=== PATIENT | male | born 1950 | race Caucasian/White ===

== ENCOUNTER 2022-11-20 10:46 | Outpatient (OUT) | payer SELFPAY | END 2022-11-20 10:47 | disposition home or self-care (01) | LOC: PST 10:46 | PROVIDERS: Visit Provider Urology | DX: Z01.818 Encounter for other preprocedural examination (principal); R97.20 Elevated prostate specific antigen [PSA] ==

== ENCOUNTER 2022-11-21 13:16 | Day surgery (SDC) | payer MEDICARE, OTHER, SELFPAY ==
--- NOTE | 2022-11-21 14:26 | PC.NURSE ---
Administered Fleets enema per direction of Dr. Lopse at this time.
[2022-11-21] MEDS: LIDOCAINE 2% JELLY 10 ML UR (14:59)
[2022-11-21] MEDS: BACITRACIN OINTMENT 28.4 GM TUBE 1 APPLIC TOPICAL (15:15)
--- NOTE | 2022-11-21 15:22 | PM.URSON ---
Urology Surgery Operative Note Operative Note Procedure Date: 11/21/22 Time Out Performed: yes Pre-op Diagnosis: 1. Elevated PSA Post-op Diagnosis: same as pre-op Procedures performed: 1. Ultrasound for needle prostate biopsy, transperineal approach 2. Transrectal ultrasound of prostate and seminal vesicles 3. Nerve block of prostate Anesthesia: local Primary Surgeon: Melanie Lopes Complications: none Estimated blood loss (mL): 1 Findings: Scattered tiny cysts and calcifications within transition zone. No discrete hyper/hypoechoic lesions. Prostate volume on TRUS 71.8 cm^3 (5.8 x 4.1 x 5.7 cm). SV unremarkable. Specimens: 1. Right posterior medial (2 cores) 2. Right posterior lateral (2 cores) 3. Right base (2 cores) 4. Right anterior lateral (2 cores) 5. Right anterior medial (2 cores) 6. Left anterior medial (2 cores) 7. Left anterior lateral (2 cores) 8. Left base (2 cores) 9. Left posterior lateral (2 cores) 10. Left posterior medial (2 cores) Drains: none Indications for Procedures: 72 year old male with history of elevated PSA 7.5, 10% free on 09/11/22, PSA density 0.09. MP-MRI prostate 11/05/22 negative. Prostate volume 79 ml. PACO benign. After discussion of risks/benefits of management options and biopsy approaches, he elected to proceed with transperineal prostate biopsy. Risks were discussed to include but not limited to bleeding, pain, infection, damage to surrounding structures, hematuria, difficulty urinating, ecchymosis, swelling, injury from positioning, and need for additional procedures. Detailed description of Procedure: After informed consent was obtained, the patient was brought to the operating suite and transferred onto the operating table in supine position. Sequential compression devices were placed on bilateral lower extremities. He received the appropriate dose of preoperative PO antibiotics. He was positioned in the dorsal lithotomy position with scrotum secured out of the perineum with tape, and the appropriate pressure points padded, prepped and draped in the usual fashion for this procedure. An operative timeout was performed confirming the patient's identity, procedure and safety checks. Lidocaine gel was inserted per rectum. A well lubricated biplane transrectal ultrasound probe was inserted into the rectum and the prostate was aligned. The gland was visualized fully in axial and sagittal views to allow for identification of anatomy, volume and location of the urethra as noted in findings. The Precision Point device was placed on the ultrasound probe for transperineal approach. The skin followed by periprostatic local anesthetic was delivered. Two biopsies were obtained in a systematic fashion from 10 regions of the prostate including the medial and lateral aspects of the anterior and posterior prostate, as well as base of the right and left lobes. The ultrasound probe was removed and the perineum was cleaned, pressure applied and dressed with antibiotic ointment, fluffs and scrotal support. Adequate hemostasis at the end of the case. The patient tolerated the procedure well and was sent to PACU in stable condition. Plan: Void prior to discharge home. Follow up in 1-2 weeks for pathology review. Other Provider present: No Post Operative care instructions: see discharge instructions Attending Doc Confirm Attending Attestation: Yes
--- NOTE | 2022-11-21 15:40 | PC.NURSE ---
To ambulatory; awake and alert; given fluids and snack; denies urge to void at this time and Dr. Lopes wants her local prostate biopsy procedures to void before discharge
--- NOTE | 2022-11-21 15:51 | PC.NURSE ---
Denies urge to void; drinking fluids without difficulty; on 4th large cup of fluid
--- NOTE | 2022-11-21 16:22 | PC.NURSE ---
Up to bathroom and vois clear yellow without difficulty
== END 2022-11-21 16:25 | disposition home or self-care (01) ==
PROVIDERS: Visit Provider Urology
PROC: (CPT 55700; principal; 2022-11-21 14:00)
DX: C61 Malignant neoplasm of prostate (principal); R97.20 Elevated prostate specific antigen [PSA]; N40.0 Benign prostatic hyperplasia without lower urinary tract symptoms; N52.9 Male erectile dysfunction, unspecified; R35.1 Nocturia; Z87.442 Personal history of urinary calculi; N41.9 Inflammatory disease of prostate, unspecified; Z79.82 Long term (current) use of aspirin; Z96.659 Presence of unspecified artificial knee joint; E29.1 Testicular hypofunction
CPT/HCPCS: 55700; 88305; 88344

== ENCOUNTER 2023-11-27 08:30 | Outpatient (OUT) | payer MEDICARE, OTHER, SELFPAY ==
--- NOTE | 2023-11-27 08:52 | XR_ITS ---
The [address] [address] Patient Name: JAMILA GRAHAM MRN: [id number] date: 1950 Sex: M Assigned Patient Location: LAB Current Patient Location: LAB Accession/Order Number: [id number] Exam Date: 11/27/2023 08:48 Report Date: 11/27/2023 10:32 At the request of: LILIYA LOPEZ Procedure: XR abdomen 1V EXAMINATION: XR abdomen 1V HISTORY: Kidney Stone N20.0 COMPARISON: XR KUB 10/25/2021 FINDINGS: KIDNEY/URETER - RIGHT: No visible renal or ureteral calcifications. KIDNEY/URETER - LEFT: Several stones projecting over left kidney, largest is 9 mm. PELVIS: No visible ureteral stones. BOWEL: No abnormal dilation or deviation. BONES: No acute abnormality. OTHER: Negative. No abnormal gaseous collections. XR/XR abdomen 1V IMPRESSION: 1. Left nephrolithiasis; increased size and number of stones compared to prior study. Electronically authenticated by: SOWMYA FLORES Date: 11/27/2023 10:32
[2023-11-28 14:10] LABS: PSA, Free 0.34 ng/mL; Prostate Specific Ag 4.1 ng/mL (0.0-4.0)
== END 2023-11-27 08:31 | disposition home or self-care (01) ==
LOC: LAB 08:33
PROVIDERS: PCP Family Medicine; Visit Provider Urology
DX: N20.0 Calculus of kidney (principal); C61 Malignant neoplasm of prostate
CPT/HCPCS: 36415; 74018; 84153; 84154

== ENCOUNTER 2024-01-27 09:24 | Outpatient (OUT) | payer MEDICARE, OTHER, SELFPAY ==
--- OUTSIDE RECORDS SUMMARY | 2024-01-27 09:46 | XMS_ITS | CCD ---
Author Organization [facility] Care Team Providers Care Guest Service Aide Name Role Phone MARIO HYMAN Primary Care Physician Mario Hyman Unavailable Luis M Gramajo Unavailable DO Mario Hyman Primary Care Provider DO Luis M Gramajo Attending Provider MD Melanie Lopes Attending Provider DO Mario Hyman Attending Provider [phone] DO Mario Hyman Primary Care Provider DO Mario Hyman Primary Care Provider MD Melanie Lopes Attending Provider DO Shantelle Lamas Attending Provider DO Mario Hyman Primary Care Provider [phone] MD Melanie Lopes Attending Provider DO Mario Hyman Attending Provider DO Maury Wilder Referring Provider DO Mario Hyman Primary Care Provider [phone] MD Melanie Lopes Attending Provider DO Mario Hyman Attending Provider [phone] DO Maury Wilder Referring Provider [phone] Yenni, Dr. Mario Mckinley Primary Care UnavailElmo Pedraza Attending Unavailable Yenni, Dr. Mario Mckinley Primary Care Shauna Hyman, Dr. Mario Mckinley Primary Care Unavailadryan Hyman, Dr. Mario Mckinley Primary Care Unavaila ble LUE ., MELANIE M Admitting Unavailable LUE ., MELANIE M Attending Unavailable KUNS, DR MARTIN Primary Care Unavailable LUE ., MELANIE M Consulting Unavailable LUIZA II, ALBARO Consulting Unavailable CECILIO MONTEIRO Consulting Unavailable LUE ., MELANIE M Admitting Unavailable LUE ., MELANIE M Attending Unavailable KUNS, DR MARTIN Primary Care Unavailable LUE ., MELANIE M Admitting Unavailable LUE ., MELANIE M Attending Unavailable KUNS, DR MARTIN Primary Care Unavailable ZIEBER, DR SOWMYA Carver Consulting Unavailable LUE ., MELANIE M Consulting Unavailable KUNS, DR MARTIN Primary Care Unavailable HAY ., DR AMAYA Admitting Unavailable HAY ., DR AMAYA Attending Unavailable HAY ., DR AMAYA Consulting Unavailable LUE ., MELANIE M Admitting Unavailable LUE ., MELANIE M Attending Unavailable KUNS, DR MARTIN Primary Care Unavailable SHAGUFTA NASH Consulting Unavailable LUE ., MELANIE M Consulting Unavailable JESUS WOODARD Consulting Unavailable KUNS, DR MARTIN Primary Care Unavailable HOY ., DR MARINO Admitting Unavailable HOY ., DR MARINO Attending Unavailable HOY ., DR MARINO Consulting Unavailable MISC, DR FOSTER Consulting Unavailable GRECHNY ., MIRIAM THOMAS Consulting Unavailabl e LUE ., MELANIE M Consulting Unavailable SISTER, MERY Consulting Unavailable LUIZA II, ALBARO Consulting Unavailable Jackys, DO Martin Primary Care Provider Yenni, DO Martin Attending Provider [phone] Jackys, DO Martin Primary Care Provider MD Melanie Lopes Attending Provider [phone] Kuns, DO Martin Attending Provider Kuns, DO Mario Primary Care Provider Kuns, DO Martin Attending Provider Jackys, Mario Admitting Unavailable Kuns, Mario Attending Unavailable Kuns, Mario Primary Care Unavailable Lue, Melanie M Attending Unavailable Lue, Melanie M Admitting Unavailable Kuns, Mario Primary Care Unavailable Kuns, Mario Admitting Unavailable Kuns, Mario Attending Unavailable Kuns, Mario Primary Care Unavailable Kuns, Mario Admitting Unavailable Kuns, Mario Attending Unavailable Kuns, Mario Primary Care Unavailable Mario Hyman Attending Unavailable Mario Hyman Admitting Unavailable Mario Hyman Primary Care Unavailable Melanie Lopes Referring Unavailable Ashley Hernandez Attending Unavailable Ashley Hernandez Admitting Unavailable Melanie Lopes Attending Unavailable Melanie Lopes Attending Unavailable Melanie Lopes Attending Unavailable Unavailable Primary Care Provider Unavailabl e Allergies Allergy Classification Reported Allergen(s) Allergy Type Date of Onset Reaction(s) Facility (1 source) No Known Medication Allergies; Translations: [No Known Medication Allergies] Propensity to adverse reactions (disorder) [facility] Medications Current Medications Medication Drug Class(es) Dates Sig (Normalized) Sig (Original) [id number] 200 actuat albuterol 0.09 mg/actuat metered dose inhaler (14 sources) beta2-Adrenergic Agonist Start: 07-10-2023 take 1 puff(s) by inhalation every four hours Albuterol Sulfate (Ventolin Hfa) 90 mcg/actuation HFA aerosol inhaler Active 2 PUFF INHALATION Every 4 hours July 10, 2023 12:00am take 2 puff(s) by in halation every four hours as needed Ventolin HFA 108 (90 Base) MCG/ACT 2 puffs as needed Inhalation every 4 hrs Active aspirin 81 mg oral capsule (20 sources) Platelet Aggregation Inhibitor, Nonsteroidal Anti-inflammatory Drug Start: 09-20-2021 take 1 mg by mouth every four hours aspirin 81 mg oral capsule mg cap(s), Oral, q4hr, Refills(s) 0 Start Date: 09/20/21 Status: Ordered Start: 09-01-2021 take 81 mg by mouth once daily Aspirin Active 81 MG PO Daily September 01, 2021 12:00am take 1 tablet by mouth once narinder y Aspirin 81 MG 1 tablet Orally Once a day Active ciprofloxacin 500 mg oral tablet (1 source) Quinolone Antimicrobial Start: 07-12-2022 ciprofloxacin 500 mg Tab Refills(s) 0 Start Date: 07/12/22 Status: Ordered meloxicam 7.5 mg oral tablet (1 source) Nonsteroidal Anti-inflammatory Drug Start: 05-09-2022 End: 05-23-2022 take 1 tablet by mouth once daily meloxicam 7.5 mg Tab 7.5 mg = 1 tab(s), Oral, Daily, X 14 day(s), # 14 tab(s), Refills(s) 0 Start Date: 05/09/22 Stop Date: 05/23/22 Status: Ordered sulfamethoxazole 800 mg / trimethoprim 160 mg oral tablet (1 source) Dihydrofolate Reductase Inhibitor Antibacterial, Sulfonamide Antimicrobial Start: 05-09-2022 End: 06-06-2022 Bactrim D.S. 800 mg-160 mg Tab 160 mg, Oral, BID for 28 day(s), 56 tab(s), Refill(s) 0 Start Date: 05/09/22 Stop Date: 06/06/22 Status: Ordered tadalafil 5 mg oral tablet (16 sources) Phosphodiesterase 5 Inhibitor Start: 12-13-2021 take 5 mg by mouth once daily as needed Tadalafil Active 5 MG PO Daily January 14, 2023 12:00am once a day, as needed prior to sexual intercourse. tamsulosin hydrochloride 0.4 mg oral capsule (19 sources) alpha-Adrenergic Alanna Start: 11-01-2021 take 0.4 mg by mouth at bedtime Tamsulosin Active 0.4 MG PO Bedtime January 14, 2023 12:00am Completed/Discontinued Medications Medication Drug Class(es) Dates Sig (Normalized) Sig (Original) glimepiride 1 mg oral tablet (13 sources) Sulfonylurea Start: 07-10-2023 End: 01-21-2024 Glimepiride Discontinued 1 MG PO Daily July 10, 2023 12:00am January 21, 2024 2:28pm 1 tablet with breakfast or the first main meal of the day Orally Once a day Start: 06-25-2022 glimepiride 2 mg Tab 2 mg = 1 tab(s) Start Date: 06/25/22 Status: Ordered Start: 06-18-2022 take 1 tablet by giovani th every twenty-four hours Glimepiride 1 MG 1 tablet with breakfast or the first main meal of the day Orally Once a day May, Active Start: 06-18-2022 take 1 tablet by giovani th every twenty-four hours Glimepiride 2 MG 1 tablet with breakfast or the first main meal of the day Orally Once a day for 90 days May, Active lisinopril 10 mg oral tablet (20 sources) Angiotensin Converting Enzyme Inhibitor Start: 09-01-2021 End: 07-10-2023 take 10 mg by mouth once daily Lisinopril Discontinued 10 MG PO Daily September 01, 2021 12:00am July 10, 2023 10:22am Start: 10-20-2014 take 20 mg by mouth once daily Lisinopril Active 20 MG PO Daily July 10, 2023 12:00am Problems Active Problems Problem Classification Problem Date Documented Da te Episodic/Chronic Allergic reactions (14 sources) Eczema; Translations: [Dermatitis, unspecified] 07-10-2023 Episodic Anxiety disorders (1 source) Anxiety disorder, unspecified; Translations: [ANXIETY DISORDER UNSPECIFIED] Onset: 07-10-2022 Chronic Asthma (14 sources) Asthma; Translations: [Unspecified asthma, uncomplicated] 07-10-2023 Chronic Calculus of urinary tract (20 sources) History of calculus of kidney; Translations: [Personal history of urinary calculi] Onset: 09-20-2021 Episodic Cancer of prostate (15 sources) Malignant neoplasm of prostate; Translations: [Malignant tumor of prostate] Onset: 11-28-2022 Chronic Cardiac dysrhythmias (5 sources) Palpitations; Translations: [Palpitations] Episodic Diabetes mellitus with complications (13 sources) Type 2 diabetes mellitus; Translations: [Type 2 diabetes mellitus with hyperglycemia] Onset: 09-18-2022 Chronic Diabetes mellitus without complication (1 source) Type 2 diabetes mellitus without complications; Translations: [Diabetes mellitus without mention of complication, type II or unspecified type, not stated as uncontrolled] 01-21-2024 Chronic Diabetes mellitus without complication (16 sources) Hyperglycemia; Translations: [Hyperglycemia, unspecified] Onset: 11-03-2021 Resolved: 11-03-2021 Episodic Disorders of lipid metabolism (17 sources) Hyperlipidemia; Translations: [Hyperlipidemia, unspecified] Onset: 11-03-2021 Resolved: 11-03-2021 Chronic Diverticulosis and diverticulitis (10 sources) Diverticular disease; Translations: [Diverticulosis of intestine, part unspecified, without perforation or abscess without bleeding] Chronic Essential hypertension (16 sources) Hypertensive disorder; Translations: [Essential (primary) hypertension] Onset: 07-10-2023 Chronic Genitourinary symptoms and ill-defined conditions (17 sources) Nocturia; Translations: [Nocturia] Onset: 11-01-2021 Episodic Hemorrhoids (10 sources) Internal hemorrhoids; Translations: [Other hemorrhoids] Episodic Hyperplasia of prostate (20 sources) Benign prostatic hypertrophy without outflow obstruction; Translations: [Benign prostatic hyperplasia without lower urinary tract symptoms] Onset: 11-01-2021 Chronic Inflammatory conditions of male genital organs (9 sources) Prostatitis; Translations: [Inflammatory disease of prostate, unspecified] Onset: 05-09-2022 Episodic Lung disease due to external agents (12 sources) Asbestosis; 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] Onset: 11-03-2021 Resolved: 11-03-2021 Chronic Malaise and fatigue (8 sources) Fatigue; Translations: [Other fatigue] Onset: 11-03-2021 Resolved: 11-03-2021 Episodic Nonspecific chest pain (8 sources) Chest pain; Translations: [Chest pain, unspecified] Onset: 07-10-2022 Episodic Nutritional deficiencies (10 sources) Vitamin D deficiency; Translations: [Vitamin D deficiency, unspecified] Chronic Osteoarthritis (5 sources) Bilateral osteoarthritis of knees; Translations: [Bilateral primary osteoarthritis of knee] 07-10-2023 Chronic Other aftercare (1 source) Other [place] [facility] (current) drug therapy; Translations: [OTH PRISON CURRENT DRUG THERAPY] Onset: 07-11-2022 Episodic Other aftercare (1 source) 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; Translations: [MANAGER DIALYSIS CURRENT USE OF ASPIRIN] Onset: 07-10-2022 Episodic Other and unspecified benign neoplasm (20 sources) History of polyp of colon; Translations: [Personal history of colonic polyps] 09-01-2021 Episodic Other and unspecified benign neoplasm (10 sources) Benign neoplasm of rectum and anal canal; Translations: [Benign neoplasm of rectum] Episodic Other and unspecified benign neoplasm (10 sources) Tubular adenoma of colon; Translations: [Benign neoplasm of colon, unspecified] Episodic Other and unspecified benign neoplasm (2 sources) Personal history of colonic polyps; Translations: [Personal history of colonic polyps] Onset: 08-15-2021 Resolved: 08-15-2021 Episodic Other connective tissue disease (11 sources) Polymyalgia; Translations: [Polymyalgia rheumatica] 07-10-2023 Chronic Other connective tissue disease (1 source) Polymyalgia rheumatica Onset: 11-03-2021 Resolved: 11-03-2021 Chronic Other connective tissue disease (1 source) Presence of artificial knee joint, bilateral; Translations: [PRESENCE ARTIFICIAL KNEE JNT BILAT] Onset: 07-10-2022 Chronic Other endocrine disorders (7 sources) Testicular hypofunction; Translations: [Testicular hypofunction] Onset: 12-13-2021 Chronic Other endocrine disorders (6 sources) Male hypogonadism 05-09-2022 Chronic Other endocrine disorders (1 source) Testicular hypofunction; Translations: [TESTICULAR HYPOFUNCTION] Onset: 07-10-2022 Chronic Other gastrointestinal disorders (1 source) Constipation, unspecified; Translations: [CONSTIPATION UNSPECIFIED] Onset: 07-10-2022 Episodic Other injuries and conditions due to external causes (5 sources) Foreign body in bladder; Translations: [Foreign body in bladder, initial encounter] Onset: 07-12-2022 Episodic Other liver diseases (10 sources) Non-alcoholic fatty liver; Translations: [Fatty (change of) liver, not elsewhere classified] Chronic Other liver diseases (10 sources) Elevated liver enzymes level; Translations: [Abnormal levels of other serum enzymes] Episodic Other male genital disorders (14 sources) Male erectile dysfunction, unspecified; Translations: [Erectile dysfunction] Onset: 12-13-2021 Chronic Other non-traumatic joint disorders (1 source) Pain in unspecified joint Episodic Other nutritional; endocrine; and metabolic disorders (2 sources) Abnormal weight loss Episodic Other screening for suspected conditions (not mental disorders or infectious disease) (20 sources) Raised prostate specific antigen; Translations: [Elevated prostate specific antigen [PSA]] Onset: 09-20-2021 Resolved: 11-03-2021 Episodic Other upper respiratory infections (8 sources) Maxillary sinusitis; Translations: [Chronic maxillary sinusitis] Chronic Residual codes; unclassified (10 sources) Family history of cancer of colon; Translations: [Family history of malignant neoplasm of digestive organs] Episodic Unclassified (1 source) CONTACT W/AND (SUSP) EXPOS COVID-19; Translations: [CONTACT W/AND (SUSP) EXPOS COVID-19] Onset: 07-10-2022 Past or Other Problems Problem Classification Problem Date Documented Da te Episodic/Chronic Neoplasms of unspecified nature or uncertain behavior (8 sources) Neoplasm of uncertain behavior of skin; Translations: [Neoplasm of uncertain behavior of skin] Onset: 12-20-2022 Episodic Results Test Name Value Interpretation Reference Range Facility Urology Office/Clinic Noteon 12-04-2023 Urology Office/Clinic Note Urology Office/Clinic Note Chief Complaint 1yr PSA HPI Staff 73 year old here for 6 mth follow up w/ PSA. previous Dx: Elevated PSA, BPH, Kidney Stones, ED & Hypogonadism Decipher testing completed, Pt referred to Dr Hernandez. States he is no longer following up with Dr Hernandez. Is now following up with a Dr in [facility]. Underwent Proton/Radiation. Last radiation Tx was 10/15/23. Follows up q6m. PSA 11/27/23- 4.1 KUB 11/27/23 Occasional Lt flank twinge. Denies difficulty voiding. History of Present Illness Tests reviewed: reviewed UA, external PSA, KUB I have reviewed the previous health record information and history for this patient from Dr. Lopes. I have reviewed and verified the staff HPI to be accurate for this encounter. Review of Systems PHQ Score Initial Depression Screen Score: 0 SCORE ROS - Provider Constitutional: denies weight loss, denies hot flashes. Eyes: denies eye problems. Gastrointestinal: denies nausea, denies vomiting. Cardiovascular: denies chest pain or angina. Integumentary: no dryness Musculoskeletal: denies musculoskeletal symptoms. ENMT: denies otolaryngeal symptoms. Respiratory: no shortness of breath. Heme/Lymph: denies easy bleeding tendency, denies easy bruising tendency. Psychiatric: no confusion, no anxiety. Genitourinary: See HPI. Physical Exam Vitals & Measurements HR: 74(Peripheral) RR: 16 BP: 121/84 HT: 67 in HT: 169 cm WT: 97 kg WT: 213.4 lb BMI: 33.96 General Appearance: alert, no distress, well nourished, well developed male. Assessment/Plan 73 yo male with cT1c favorable intermediate risk prostate cancer, iPSA 7.47, GG2 +3/20 cores and hx kidney stones 1. Prostate cancer (C61: Malignant neoplasm of prostate) ACTIVE SURVEILLANCE. No family history of prostate cancer or related malignancies. [facility] - 41% chance of cancer upon Biopsy and 15% chance it would be [place] score 7 or higher. MRI prostate 10/24/21 [facility] - neg, BPH changes. Prior prostatitis. 81 g volume. PSAD 0.06 (low) PSA: 10/31/16 - 2.00 01/2021 - Pt stated he had PSA done by PCP in [place] but could not find records of this, pt stated it was in the 3 to 4 range 08/14/21 - 5.05 09/28/21 - 5.15 & 13.0% 04/27/22 - 6.56 & 14.0% 09/11/22 - 7.47 & 10.1% 11/27/23 - 4.1 & 8.3% (after proton tx) MRI Prostate wo/w Con 11/05/22 - Prostate Volume 79gms, no evidence of malignancy, BPH changes PSAD 0.09 S/p MRI fusion TP Bx 11/21/22: Grade group 2 +3/20 cores (GS 7(3+4) GG2 in 1 core Pattern 4 in 5%, GS 6(3+3) GG1 in 2 cores), Highest core involvement 25%. Rt and Lt anterior medial Follows w/ Dr. Kelvin Leija (rad onc) in [place], [place]. Finished proton treatment 10/15/23. -Cont following w/ rad onc 2. BPH without urinary obstruction (N40.0: Benign prostatic hyperplasia without lower urinary tract symptoms) IPSS 3 (7). UA today negative for blood and infection. Taking Tamsulosin 0.4mg qd and cialis 5 mg PO. Not voicing any urinary habit complaints. Declines changes at this time -Cont meds as above 3. Kidney stones (N20.0: Calculus of kidney) CT AP wo contrast 05/17/22 - Right UVJ stone without hydro and hydroureter measuring 17 x 14 mm in greatest axial dimension. S/p cysto, R RGP, R URS w/laser litho/stone basket extraction, stent placement, fulguration of prostate bleeders 07/04/22 Stent removed 07/12/2022. CaOx monohydrate 100%. Renal US 08/20/22 - nonobstructing left renal stones largest is within the upper pole measuring 1.6 cm, enlarged prostate, no hydronephrosis. (On CT scan, mentions 2 stones, largest 6 mm) KUB 11/27/23 [facility] - Several stones projecting over L kidney, largest 9mm. Personal review: 5mm and 9mm L renal stones. Again discussed ESWL and risks/benefits. Pt is interested in proceeding with this. Shares he has not been drinking as much water as he should. -Increase water intake w/ lemon -Will schedule Left ESWL. The procedure risks, benefits, details and treatment alternatives have been discussed with the patient. These include blood urine, infection, bleeding around the kidney, kidney bruising, inability to break up the stone, need for blood transfusion, stent pain, injury to the ureter, bladder irritation from the stent, flank pain, and need for additional procedures, among others. Full informed consent has been obtained. Will order General anesthesia. 4. Erectile dysfunction (N52.9: Male erectile dysfunction, unspecified) Cialis for BPH & ED SERGEI 11 (13) -Declines further eval/treatment at this time. 5. Hypogonadism male (E29.1: Testicular hypofunction) Testosterone: 11/08/21 - 296 (range 264-916) 12/06/21 - 2.69 (range 1.75-7.81) -Declined treatment at this time. [1] Follow-up With When Contact Information Melanie Lopes MD, URL, [facility] [address] [facility] [place] [address]- [phone] Additional Instructions: sched L ESWL Patient Education Laser Therapy for Kidney Stones, Care After Laser Therapy for Kidney Stones Monica Chadwick (more content not included)... Normal [facility] Comment on above: Result Comment: Elec tronically Signed By: Melanie Lopes MD\.br\Date and Time Signed: 12/04/23 12:32 EDT\.br\Electronically Co-Signed By: Monica Rubio\.br\Date and Time Co-Signed: 12/04/23 10:41 EDT No Panel Informationon 11-26 Free Prostate Specific Antigen 0.34 ng/mL N/A [facility] Comment on above: Erika ECLIA methodol ogy. Prostate Specific Antigen Total 4.1 ng/mL Abnormal 0.0-4.0 [facility] Comment on above: Erika ECLIA methodol ogy.According to the [place] [employer], Serum PSAshould decrease and remain at undetectable levels afterradical prostatectomy. The AUA defines biochemicalrecurrence as an initial PSA value 0.2 ng/mL or greaterfollowed by a subsequent confirmatory PSA value 0.2 ng/mLor greater. Values obtained with different assay methods orkits cannot be used interchangeably. Results cannot beinterpreted as absolute evidence of the presence or absenceof malignant disease. Serum or plasma free prostat e specific antigen (PSA)/total PSA ratioon 11-27-2023 Free PSA/Total PSA [Mass fraction] 8.3 % . [facility] Comment on above: The table below list s the probability of prostate cancer formen with non-suspicious PACO results and total PSA between4 and 10 ng/mL, by patient age (Brinda et al, SKINNY 1998,[id number]). % Free PSA 50-64 yr 65-75 yr 0.00-10.00% 56% 55% 10.01-15.00% 24% 35% 15.01-20.00% 17% 23% 20.01-25.00% 10% 20% >25.00% 5% 9%Please note: Brinda et al did not make specific recommendations regarding the use of percent free PSA for any other population of men.Performed at: [facility] [id number] Director: Toi Hernandez PhD, Phone: [phone] A1C with Estimated Average Isha dominguez 07-10-2023 Glucose [Mass/Vol] 126 mg/dL Normal [facility] Comment on above: Result Comment: PERF ORMED BY: [place] [address] PATHOLOGIST AIR CONDITIONING SERVICE TECHNICIAN LIANA SALTER M.D. Performed By: #### C BC, CMP, A1C WT eA, LIPID, TSH3 #### [address] HbA1c (Bld) [Mass fraction] 6.0 % High 4.3-5.6 [facility] Comment on above: Result Comment: Incr eased risk for diabetes: 5.7 - 6.4 diabetes: >6.4 glycemic control for adults with diabetes: <7.0 Performed By: #### C BC, CMP, A1C WTH eA, LIPID, TSH3 #### [facility] [address] Alanine aminotransferase [En zymatic activity/volume] in Serum or PlasmaOrdered By: Mario Hyman on 07-10-2023 ALT [Catalytic activity/Vol] 24 U/L 7-52 [facility] Albumin [Mass/volume] in Ser um or Plasma by Bromocresol green (BCG) dye binding methoOrdered By: Mario Hyman on 07-10-2023 Albumin BCG dye [Mass/Vol] 4.1 g/dL 3.5-5.7 [facility] Alkaline phosphatase [Enzyma tic activity/volume] in Serum or PlasmaOrdered By: Mario Hyman on 07-10-2023 ALP [Catalytic activity/Vol] 68 U/L 34-104 [facility] Aspartate aminotransferase [ Enzymatic activity/volume] in Serum or PlasmaOrdered By: Mario Hyman on 07-10-2023 AST [Catalytic activity/Vol] 24 U/L 13-39 [facility] Basophils Auto (Bld) [#/Vol] Ordered By: Mario Hyman on 07-10-2023 Basophils (Bld) [#/Vol] 0.1 10*3/uL 0.0-0.2 [facility] Basophils/100 WBC Auto (Bld) Ordered By: Mario Hyman on 07-10-2023 Basophils/100 WBC (Bld) 1.1 % . [facility] Bilirubin.total [Mass/volume ] in Serum or PlasmaOrdered By: Mario Hyman on 07-10-2023 Bilirubin [Mass/Vol] 0.8 mg/dL 0.3-1.0 [facility] Calcium [Mass/volume] in Ser um or PlasmaOrdered By: Mario Hyman on 07-10-2023 Calcium [Mass/Vol] 8.7 mg/dL 8.6-10.3 [facility] Carbon dioxide, total [Moles /volume] in Serum or PlasmaOrdered By: Mario Hyman on 07-10-2023 CO2 [Moles/Vol] 25.8 mmol/L 21.0-31.0 [facility] Chloride [Moles/volume] in S eder or PlasmaOrdered By: Mario Hyman on 07-10-2023 Chloride [Moles/Vol] 108 mmol/L 98-107 [facility] Cholesterol [Mass/volume] in Serum or PlasmaOrdered By: Mario Hyman on 07-10-2023 Cholesterol [Mass/Vol] 146 mg/dL 140-200 [facility] Comment on above: Chol less than 200 m g/dl low riskChol 201-239 mg/dl borderline riskChol 240 mg/dl and greater high risk Cholesterol in LDL Calc [Mas s/Vol]Ordered By: Mario Hyman on 07-10-2023 Cholesterol in LDL [Mass/Vol] 86 mg/dL 0-100 [facility] Comment on above: LDL ATP III CLASSIFI CATIONLDL less than 100 mg/dL OptimalLDL 100-129 mg/dL Near or above optimalLDL 130-159 mg/dL Borderline highLDL 160-189 mg/dL HighLDL greater than 189 mg/dL Very high Cholesterol in VLDL Calc [Ma ss/Vol]Ordered By: Mario Hyman on 07-10-2023 Cholesterol in VLDL [Mass/Vol] 16 mg/dL [facility] Complete Blood Count Auto Di ffon 07-10-2023 Basophils (Bld) [#/Vol] 0.1 10*3/uL Normal 0.0-0.2 [facility] Comment on above: Result Comment: PERF ORMED BY: [place] [address] PATHOLOGIST AIR CONDITIONING SERVICE TECHNICIAN LIANA SALTER M.D. Performed By: #### C BC, CMP, A1C WTH eA, LIPID, TSH3 #### [facility] [address] [place] [address] [place] Basophils/100 WBC (Bld) 1.1 % Normal . [facility] Comment on above: Performed By: #### C BC, CMP, A1C WTH eA, LIPID, TSH3 #### [facility] [address] [place] [address] [place] Eosinophils (Bld) [#/Vol] 0.0 10*3/uL Normal 0.0-0.45 [facility] Comment on above: Performed By: #### C BC, CMP, A1C WTH eA, LIPID, TSH3 #### [address] Eosinophils/100 WBC (Bld) 0.4 % Normal . [facility] Comment on above: Performed By: #### C BC, CMP, A1C WTH eA, LIPID, TSH3 #### [address] Erythrocyte distribution width (RBC) [Ratio] 12.7 % Normal 12.0-14.8 [facility] Comment on above: Performed By: #### C BC, CMP, A1C WTH eA, LIPID, TSH3 #### [address] Hematocrit (Bld) [Volume fraction] 40.9 % Normal 38.8-50.0 [facility] Comment on above: Performed By: #### C BC, CMP, A1C WTH eA, LIPID, TSH3 #### [address] Hemoglobin (Bld) [Mass/Vol] 13.7 g/dL Normal 13.0-17.0 [facility] Comment on above: Performed By: #### C BC, CMP, A1C WTH eA, LIPID, TSH3 #### [address] Lymphocytes (Bld) [#/Vol] 1.2 10*3/uL Normal 1.00-4.8 [facility] Comment on above: Performed By: #### C BC, CMP, A1C WTH eA, LIPID, TSH3 #### [address] Lymphocytes/100 WBC (Bld) 23.0 % Normal . [facility] Comment on above: Performed By: #### C BC, CMP, A1C WTH eA, LIPID, TSH3 #### [address] MCH (RBC) [Entitic mass] 30.1 pg Normal 27.5-35.2 [facility] Comment on above: Performed By: #### C BC, CMP, A1C WTH eA, LIPID, TSH3 #### [address] MCV (RBC) [Entitic vol] 90.2 fL Normal 83.5-101 [facility] Comment on above: Performed By: #### C BC, CMP, A1C WTH eA, LIPID, TSH3 #### [address] Mean Corpuscular HGB Conc 33.4 g/dL Normal 32.5-35.6 [facility] Comment on above: Performed By: #### C BC, CMP, A1C WTH eA, LIPID, TSH3 #### [address] Monocytes (Bld) [#/Vol] 0.4 10*3/uL Normal 0.0-0.8 [facility] Comment on above: Performed By: #### C BC, CMP, A1C WTH eA, LIPID, TSH3 #### [address] Monocytes/100 WBC (Bld) 8.3 % Normal . [facility] Comment on above: Performed By: #### C BC, CMP, A1C WTH eA, LIPID, TSH3 #### [address] Neutrophils (Bld) [#/Vol] 3.4 10*3/uL Normal 1.8-7.7 [facility] Comment on above: Performed By: #### C BC, CMP, A1C WTH eA, LIPID, TSH3 #### [address] Neutrophils/100 WBC (Bld) 67.2 % Normal . [facility] Comment on above: Performed By: #### C BC, CMP, A1C WTH eA, LIPID, TSH3 #### [address] NRBC% 0.5 /100{WBC} Normal 0-0.5 [facility] Comment on above: Performed By: #### C BC, CMP, A1C WTH eA, LIPID, TSH3 #### [facility] [address] Platelet mean volume (Bld) [Entitic vol] 9.6 fL Normal 6.6-10.1 [facility] Comment on above: Performed By: #### C BC, CMP, A1C WTH eA, LIPID, TSH3 #### [facility] [address] Platelets (Bld) [#/Vol] 148 10*3/uL Low 150-450 [facility] Comment on above: Performed By: #### C BC, CMP, A1C WTH eA, LIPID, TSH3 #### [facility] [address] RBC (Bld) [#/Vol] 4.54 10*6/uL Normal 3.90-5.[address] [facility] Comment on above: Performed By: #### C BC, CMP, A1C WTH eA, LIPID, TSH3 #### [facility] [address] WBC (Bld) [#/Vol] 5.1 10*3/uL Normal 4.1-10.5 [facility] Comment on above: Performed By: #### C BC, CMP, A1C WTH eA, LIPID, TSH3 #### [address] Comprehensive Metabolic Pane serge 07-10-2023 Albumin [Mass/Vol] 4.1 g/dL Normal 3.5-5.7 [facility] Comment on above: Performed By: #### C BC, CMP, A1C WTH eA, LIPID, TSH3 #### [facility] [address] Albumin/Globulin [Mass ratio] 1.8 {ratio} Normal [facility] Comment on above: Performed By: #### C BC, CMP, A1C WTH eA, LIPID, TSH3 #### [facility] [address] ALP [Catalytic activity/Vol] 68 U/L Normal 34-104 [facility] Comment on above: Performed By: #### C BC, CMP, A1C WTH eA, LIPID, TSH3 #### [address] ALT [Catalytic activity/Vol] 24 U/L Normal 7-52 [facility] Comment on above: Performed By: #### C BC, CMP, A1C WTH eA, LIPID, TSH3 #### [address] Anion gap [Moles/Vol] 10.3 mmol/L Normal 6.0-15.0 [facility] Comment on above: Performed By: #### C BC, CMP, A1C WTH eA, LIPID, TSH3 #### [address] AST [Catalytic activity/Vol] 24 U/L Normal 13-39 [facility] Comment on above: Performed By: #### C BC, CMP, A1C WTH eA, LIPID, TSH3 #### [address] Bilirubin [Mass/Vol] 0.8 mg/dL Normal 0.3-1.0 [facility] Comment on above: Performed By: #### C BC, CMP, A1C WTH eA, LIPID, TSH3 #### [address] Calcium [Mass/Vol] 8.7 mg/dL Normal 8.6-10.3 [facility] Comment on above: Performed By: #### C BC, CMP, A1C WTH eA, LIPID, TSH3 #### [place] [address] [place] Chloride [Moles/Vol] 108 mmol/L High 98-107 [facility] Comment on above: Performed By: #### C BC, CMP, A1C WTH eA, LIPID, TSH3 #### [address] CO2 [Moles/Vol] 25.8 mmol/L Normal 21.0-31.0 [facility] Comment on above: Performed By: #### C BC, CMP, A1C WTH eA, LIPID, TSH3 #### [facility] [address] Creatinine [Mass/Vol] 0.73 mg/dL Normal 0.70-1.30 [facility] Comment on above: Performed By: #### C BC, CMP, A1C WTH eA, LIPID, TSH3 #### [place] [address] [place] GFR/1.73 sq M.predicted MDRD (S/P/Bld) [Vol rate/Area] mL/min/{1.73_m2} Normal [facility] Comment on above: Performed By: #### C BC, CMP, A1C WTH eA, LIPID, TSH3 #### [address] Globulin (S) [Mass/Vol] 2.3 g/dL Normal [facility] Comment on above: Performed By: #### C BC, CMP, A1C WTH eA, LIPID, TSH3 #### [address] Glucose [Mass/Vol] 129 mg/dL High 70-100 [facility] Comment on above: Result Comment: [facility] Glucose Reference Range is dependent on time and content of last meal. Glucose of more than 200 mg/dL in a nonstressed, ambulatory subject supports the diagnosis of Diabetes Mellitus. ADA recommended reference range Performed By: #### C BC, CMP, A1C WTH eA, LIPID, TSH3 #### [address] Potassium [Moles/Vol] 4.1 mmol/L Normal 3.5-5.1 [facility] Comment on above: Performed By: #### C BC, CMP, A1C WTH eA, LIPID, TSH3 #### [address] Protein [Mass/Vol] 6.4 g/dL Normal 6.4-8.9 [facility] Comment on above: Performed By: #### C BC, CMP, A1C WTH eA, LIPID, TSH3 #### [facility] [address] [place] [address] [place] Sodium [Moles/Vol] 140 mmol/L Normal 136-145 [facility] Comment on above: Performed By: #### C BC, CMP, A1C WTH eA, LIPID, TSH3 #### [facility] [address] [place] [address] [place] Urea nitrogen [Mass/Vol] 17 mg/dL Normal 7-25 [facility] Comment on above: Performed By: #### C BC, CMP, A1C WTH eA, LIPID, TSH3 #### [facility] [address] [place] [address] [facility] Creatinine [Mass/volume] in Serum or PlasmaOrdered By: Mario Hyman on 07-10-2023 Creatinine [Mass/Vol] 0.73 mg/dL 0.70-1.30 [facility] ECG 12 lead ECGon 07-10-2023 ECG 12 lead ECG [facility] Main [place] [address] [place] [address] Electrocardiograph Report Signed Patient: Angus Auguste MR#: [id number] 234 : 1950 Acct:[id number] Age/Sex: 73 / M ADM Date: 07/10/23 Loc: [facility] Room: Type: [facility] Attending Dr: Mario Hyman DO Ordering Provider: Mario Hyman DO Date of Service: 07/10/2301/23/1020 ECG/ECG 12 lead ECG: Z01.818 - Encounter for other preprocedural examination Copies to: Test Reason : Blood Pressure : / mmHG Vent. Rate : 070 BPM Atrial Rate : 070 BPM P-R Int : 186 ms QRS Dur : 094 ms QT Int : 374 ms P-R-T Axes : 057 029 043 degrees QTc Int : 403 ms Normal sinus rhythm Normal ECG No previous ECGs available Confirmed by Mario Hyman ([id number]) on 07/11/2023 7:17:30 AM Referred By: Electronically Signed By:Mario Hyman Transcribed By: MUS Signed By Mario Hyman DO 07/11/23 0717 Normal [facility] Eosinophils Auto (Bld) [#/Vo l]Ordered By: Mario Hyamn on 07-10-2023 Eosinophils (Bld) [#/Vol] 0.0 10*3/uL 0.0-0.45 [facility] Eosinophils/100 WBC Auto (Bl d)Ordered By: Mario Hyman on 07-10-2023 Eosinophils/100 WBC (Bld) 0.4 % . [facility] Erythrocyte distribution wid th Auto (RBC) [Ratio]Ordered By: Mario Hyman on 07-10-2023 Erythrocyte distribution width (RBC) [Ratio] 12.7 % 12.0-14.8 [facility] Globulin Calc (S) [Mass/Vol] Ordered By: Mario Hyman on 07-10-2023 Globulin (S) [Mass/Vol] 2.3 g/dL [facility] Glucose [Mass/volume] in Ser um or PlasmaOrdered By: Mario Hyman on 07-10-2023 Glucose [Mass/Vol] 129 mg/dL 70-100 [facility] Comment on above: ADA recommended refe rence rangeRandom Glucose Reference Range is dependent on time and content of last meal. Glucose of more than 200 mg/dL in a nonstressed, ambulatory subject supports the diagnosis of Diabetes Mellitus. Hematocrit Auto (Bld) [Volum e fraction]Ordered By: Mario Hyman on 07-10-2023 Hematocrit (Bld) [Volume fraction] 40.9 % 38.8-50.0 [facility] Hemoglobin [Mass/volume] in BloodOrdered By: Mario Hyman on 07-10-2023 Hemoglobin (Bld) [Mass/Vol] 13.7 g/dL 13.0-17.0 [facility] Leukocytes [#/volume] correc jonatan for nucleated erythrocytes in Blood by Automated counOrdered By: Mario Hyman on 07-10-2023 WBC corrected for nucl RBC Auto (Bld) [#/Vol] 5.1 10*3/uL 4.1-10.5 [facility] Lipid Panelon 07-10-2023 Cholesterol [Mass/Vol] 146 mg/dL Normal 140-200 [facility] Comment on above: Result Comment: Chol less than 200 mg/dl low risk Chol 201-239 mg/dl borderline risk Chol 240 mg/dl and greater high risk Performed By: #### C BC, CMP, A1C WTH eA, LIPID, TSH3 #### [facility] [address] Cholesterol in HDL [Mass/Vol] 44 mg/dL Normal 23-92 [facility] Comment on above: Result Comment: HDL CHOL ATP-III CLASSIFICATION Cardiovascular Risk HDL > or equal to 60 mg/dL LOW HDL < 40 mg/dL HIGH Performed By: #### C BC, CMP, A1C WTH eA, LIPID, TSH3 #### [facility] [address] Cholesterol.total/Chol esterol in HDL [Mass ratio] 3.3 {ratio} Normal <5.0 [facility] Comment on above: Performed By: #### C BC, CMP, A1C WTH eA, LIPID, TSH3 #### [facility] [address] LDL Cholesterol,Calculated 86 mg/dL Normal 0-100 [facility] Comment on above: Result Comment: LDL ATP III CLASSIFICATION LDL less than 100 mg/dL Optimal LDL 100-129 mg/dL Near or above optimal LDL 130-159 mg/dL Borderline high LDL 160-189 mg/dL High LDL greater than 189 mg/dL Very high Performed By: #### C BC, CMP, A1C WTH eA, LIPID, TSH3 #### [facility] [address] Triglyceride w/Reflex 82 mg/dL Normal 0-149 [facility] Comment on above: Result Comment: TRIG ATP III CLASSIFICATION TRIG less than 150 mg/dL Normal TRIG 150-199 mg/dL Borderline high TRIG 200-500 mg/dL High TRIG greater than 500 mg/dL Very high Standard traceable to the Center for Disease Conrtrol and Prevention (CDC) test method. Performed By: #### C BC, CMP, A1C WTH eA, LIPID, TSH3 #### [facility] [address] [place] [id number] [facility] VLDL CHOLESTEROL 16 mg/dL Normal [facility] Comment on above: Performed By: #### C BC, CMP, A1C WTH eA, LIPID, TSH3 #### [facility] [address] Lymphocytes Auto (Bld) [#/Vo l]Ordered By: Mario Hyman on 07-10-2023 Lymphocytes (Bld) [#/Vol] 1.2 10*3/uL 1.00-4.8 [facility] Lymphocytes/100 WBC Auto (Bl d)Ordered By: Mario Hyman on 07-10-2023 Lymphocytes/100 WBC (Bld) 23.0 % . [facility] MCH Auto (RBC) [Entitic mass ]Ordered By: Mario Hyman on 07-10-2023 MCH (RBC) [Entitic mass] 30.1 pg 27.5-35.2 [facility] MCHC Auto (RBC) [Mass/Vol]Or dered By: Mario Hyman on 07-10-2023 MCHC (RBC) [Mass/Vol] 33.4 g/dL 32.5-35.6 [facility] MCV Auto (RBC) [Entitic vol] Ordered By: Mario Hyman on 07-10-2023 MCV (RBC) [Entitic vol] 90.2 fL 83.5-101 [facility] Monocytes Auto (Bld) [#/Vol] Ordered By: Mario Hyman on 07-10-2023 Monocytes (Bld) [#/Vol] 0.4 10*3/uL 0.0-0.8 [facility] Monocytes/100 WBC Auto (Bld) Ordered By: Mario Hyman on 07-10-2023 Monocytes/100 WBC (Bld) 8.3 % . [facility] Neutrophils Auto (Bld) [#/Vo l]Ordered By: Mario Hyman on 07-10-2023 Neutrophils (Bld) [#/Vol] 3.4 10*3/uL 1.8-7.7 [facility] Neutrophils/100 WBC Auto (Bl d)Ordered By: Mario Hyman on 07-10-2023 Neutrophils/100 WBC (Bld) 67.2 % . [facility] No Panel InformationOrdered By: Mario Hyman on 07-10-2023 Estimated GFR (CKD-EPI) > 60.0 mL/Min [facility] Creatinine Clearance (Chem N/A [facility] Nucleated erythrocytes [Pres ence] in Blood by Automated countOrdered By: Mario Hyman on 07-10-2023 Nucleated RBC Auto Ql (Bld) 0.5 /100{WBC} 0-0.5 [facility] Platelet mean volume Auto (B ld) [Entitic vol]Ordered By: Mario Hyman on 07-10-2023 Platelet mean volume (Bld) [Entitic vol] 9.6 fL 6.6-10.1 [facility] Platelets Auto (Bld) [#/Vol] Ordered By: Mario Hyman on 07-10-2023 Platelets (Bld) [#/Vol] 148 10*3/uL 150-450 [facility] Potassium [Moles/volume] in Serum or PlasmaOrdered By: Mario Hyman on 07-10-2023 Potassium [Moles/Vol] 4.1 mmol/L 3.5-5.1 [facility] Protein [Mass/volume] in Ser um or PlasmaOrdered By: Mario Hyman on 07-10-2023 Protein [Mass/Vol] 6.4 g/dL 6.4-8.9 [facility] RBC Auto (Bld) [#/Vol]Ordere d By: Mario Hyman on 07-10-2023 RBC (Bld) [#/Vol] 4.54 10*6/uL 3.90-5.60 [facility] Serum or plasma albumin/glob ulin mass ratioOrdered By: Mario Hyman on 07-10-2023 Albumin/Globulin [Mass ratio] 1.8 {ratio} [facility] Serum or plasma anion gap de terminationOrdered By: Mario Hyman on 07-10-2023 Anion gap [Moles/Vol] 10.3 mmol/L 6.0-15.0 [facility] Serum or plasma high density lipoprotein (HDL) cholesterol measurementOrdered By: Mario Hyman on 07-10-2023 Cholesterol in HDL [Mass/Vol] 44 mg/dL 23-92 [facility] Comment on above: HDL CHOL ATP-III CLA SSIFICATION Cardiovascular RiskHDL > or equal to 60 mg/dL LOWHDL < 40 mg/dL HIGH Serum or plasma total choles terol/high density lipoprotein (HDL) cholesterol mass ratOrdered By: Mario Hyman on 07-10-2023 Cholesterol.total/Chol esterol in HDL [Mass ratio] 3.3 {ratio} <5.0 [facility] Sodium [Moles/volume] in Ser um or PlasmaOrdered By: Mario Hyman on 07-10-2023 Sodium [Moles/Vol] 140 mmol/L 136-145 [facility] Thyroid Stimulating Hormoneo n 07-10-2023 TSH Qn 1.90 m[IU]/L Normal 0.45-5.33 [facility] Comment on above: Result Comment: PERF ORMED BY: [facility] [address] [place] [address] PATHOLOGIST AIR CONDITIONING SERVICE TECHNICIAN LIANA SALTER M.D. Performed By: #### C BC, CMP, A1C WTH eA, LIPID, TSH3 #### [facility] [address] Thyrotropin [Units/volume] i n Serum or PlasmaOrdered By: Mario Hyman on 07-10-2023 TSH Qn 1.90 m[IU]/L 0.45-5.33 [facility] Triglyceride [Mass/volume] i n Serum or PlasmaOrdered By: Mario Hyman on 07-10-2023 Triglyceride [Mass/Vol] 82 mg/dL 0-149 [facility] Comment on above: TRIG ATP III CLASSIF ICATIONTRIG less than 150 mg/dL NormalTRIG 150-199 mg/dL Borderline highTRIG 200-500 mg/dL High TRIG greater than 500 mg/dL Very highStandard traceable to the Center for Disease Conrtrol and Prevention (CDC) test method. Urea nitrogen [Mass/volume] in Serum or PlasmaOrdered By: Mario Hyman on 07-10-2023 Urea nitrogen [Mass/Vol] 17 mg/dL 7-25 [facility] WBC Auto (Bld) [#/Vol]Ordere d By: Mario Hyman on 07-10-2023 WBC (Bld) [#/Vol] 5.1 10*3/uL 4.1-10.5 [facility] Consultation Noteon 01-16-20 Consultation Note [id number] IFJenny Fern[facility] A1C HEMOGLOBINon 12-20-2022 HbA1c (Bld) [Mass fraction] 5.5 % Convore Other HbA1c (Bld) [Mass fraction]o n 12-20-2022 A1C HEMOGLOBIN [facility] Pixalate Other Serge 12-20-2022 L --- Specimen: [id number] Received: 12/21/22 Status: SEFERINO Frankpatsy Num: [id number] Spec Type: Surgical Subm Dr: Mario Hyman DO Tissues: A Skin-Other than Cyst, tag, debridement or plastic repair (LT FLANK SUPERIOR) B Skin-Other than Cyst, tag, debridement or plastic repair (LT FLANK INFERIOR) Procedures: HE/2, Gross/Micro L4/2 Age/ Patient Sex Location Account Attending Physician GersonAngus bucio Adryan 72/M [place] [id number] Mario Hyman DO SPEC NUM: [id number] RECD: 12/21/22 STATUS: SEFERINO CUELLAR NUM: [id number] JAIR: 12/20/[address] [facility] [address]: Mario Hyman DO ENTERED: 12/21/[address]: GABRIELLA TYPE: Surgical DEPT: S ORDERED: HE/2, Gross/Micro L4/2 ORDERED: HE/2, Gross/Micro L4/2 Pathological Diagnosis A. Skin, left flank 2 cm superior, shave biopsy: - Benign seborrheic keratosis of the mixed acanthotic, moderately hyperpigmented, slightly irritated, slightly inflamed (chronic), and focally hyperkeratotic types - Incidental focal mild colonizations of the dermatophyte spores, otherwise without malignancy, nevoid atypia, or any squamous dysplasia identified B. Skin, left flank, 3 cm inferior, shave biopsy: - Benign seborrheic keratosis of the marked hyperkeratotic, mildly hyperpigmented, and mildly inflamed types - Patchy moderate colonization of the skin shital and minor suspected dermatophytes spores as well, otherwise without malignancy, nevoid atypia, any obvious squamous dysplasia, or any significant squamous atypia identified Clinical Information Neoplasm of uncertain behavior Gross Description A. Received in formalin labeled with the patient's name, date of and superior 2 cm is a 1.0 x 0.6 x 0.2 cm irene-newton nodular skin that is inked and bisected. Entirely submitted in one cassette labeled A1. Specimen: [id number] Received: 12/21/22 Status: SEFERINO Cuellar Num: [id number] Spec Type: Surgical Subm Dr: Mario Hyman DO Tissues: A Skin-Other than Cyst, tag, debridement or plastic repair (LT FLANK SUPERIOR) B Skin-Other than Cyst, tag, debridement or plastic repair (LT FLANK INFERIOR) Procedures: HE/Liborio, Krissy/Arlette L4/2 Patient: JesusruizAngus [id number] (Continued) Specimen: [id number] Received: 12/21/22 (Continued) Gross Description (Continued) Signed (signature on file) Oscar Novak MD 12/24/22 1443 Specimen: [id number] Received: 12/21/22 Status: SEFERINO Cuellar Num: [id number] Spec Type: Surgical Subm Dr: Mario Hyman DO Tissues: A Skin-Other than Cyst, tag, debridement or plastic repair (LT FLANK SUPERIOR) B Skin-Other than Cyst, tag, debridement or plastic repair (LT FLANK INFERIOR) Procedures: HE/2, Gross/Micro L4/2 Patient: Angus Auguste [id number] (Continued) Specimen: [id number] Received: 12/21/22 (Continued) Gross Description (Continued) B. Received in formalin labeled with the patient's name, date of and inferior 3 cm is a 1.3 x 1.1 x 0.3 cm irene-newton, crusted, nodular skin that is inked and sectioned. E ntirely submitted in one cassette labeled B1. Microscopic Description A. One H E slide reviewed. The microscopic examination confirms the diagnosis. B. One H E slide reviewed. The microscopic examination confirms the diagnosis. CPT Codes 89825y0 Specimen: [id number] Received: 12/21/22 Status: SEFERINO Cuellar Num: [id number] Spec Type: Surgical Subm Dr: Mario Hyman DO Tissues: A Skin-Other than Cyst, tag, debridement or plastic repair (LT FLANK SUPERIOR) B Skin-Other than Cyst, tag, debridement or plastic repair (LT FLANK INFERIOR) Procedures: HE/2, Gross/Micro L4/2 Patient: Angus Auguste (more content not included)... Normal [facility] Creatinine (Bld) [Mass/Vol]O rdered By: Melanie Lopes on 11-05-2022 Creatinine [Mass/Vol] 1.0 mg/dL 0.6-1.3 [facility] Comment on above: ER/ESD physician is notified/shown all ISTAT results.Critical values may be confirmed by laboratory testing ifdeemed necessary by ER attending doctor. MR prostate wo/w jacquelinon 11-05 MR prostate wo/w con [facility] Main [address] [address] MRI Report Signed Patient: Angus Auguste MR#: [id number] 234 : 1950 Acct:[id number] Age/Sex: 72 / M ADM Date: 11/05/22 Loc: MR Room: Type: [facility] Attending Dr: Melanie Lopes MD Copies to: Melanie Lopes MD Ordering Provider: Melanie Lopes MD Date of Service: 11/05/22 MR/MR prostate wo/w con: R97.20 ELEVATED PSA EXAMINATION: MR prostate wo/w con HISTORY: Elevated PSA. COMPARISON: Prostate MRI 10/24/2021 TECHNIQUE: Multiparametric imaging of the prostate gland was performed with IV contrast. FINDINGS: Prostate Dimensions: 5.8 x 4.3 x 6.1 cm Prostate Volume: 79 mL Peripheral Zone: Heterogenous inT2 signal suggestive of prior prostatitis. No suspicious T2 or ADC map abnormality is identified to suggest prostate malignancy. Central/Transitional Zone: BPH changes. Seminal Vesicles: Unremarkable Neurovascular bundles: Unremarkable. Lymphadenopathy: No evidence of lymphadenopathy. Bladder: No focal lesion. Bowel: Diverticulosis Peritoneal Cavity: No free fluid. Bones: No suspicious bony lesion. MR/MR prostate wo/w con IMPRESSION: No MRI evidence of prostate malignancy. BPH changes. Impression dictated by: Mati Cuello Jr., DSusanOSusan11/05/2022 1:29 PM Dictation Location: [place] [address] Transcribed By: [facility] 11/05/22 1329 Dictated By: Mati Cuello Jr, DO 11/05/22 1323 Signed By: 11/05/22 1329 Normal [facility] A1C with Estimated Average G [facility] 09-18-2022 Glucose [Mass/Vol] 117 mg/dL Normal [facility] Comment on above: Order Comment: Reaso n for Exam Type 2 diabetes mellitus with hyperglycemia, without long-te Result Comment: PERF ORMED BY: [place] [address] PATHOLOGIST AIR CONDITIONING SERVICE TECHNICIAN LIANA SALTER M.D. Performed By: #### P SATF, A1C [facility] #### [address] HbA1c (Bld) [Mass fraction] 5.7 % High 4.3-5.6 [facility] Comment on above: Order Comment: Reaso n for Exam Type 2 diabetes mellitus with hyperglycemia, without long-te Result Comment: Incr eased risk for diabetes: 5.7 - 6.4 diabetes: >6.4 glycemic control for adults with diabetes: <7.0 Performed By: #### P SATF, A1C WT eA #### [address] PSA Diagnostic (Total Free)o n 09-18-2022 Prostate Spec Ag, Free 0.760 ng/mL Normal [facility] Comment on above: Order Comment: Reaso n for Exam Elevated PSA Performed By: #### P SATF, A1C WTH eA #### [address] PSA Total (Not a Screen) 7.470 ng/mL High 0.000-4.000 [facility] Comment on above: Order Comment: Reaso n for Exam Elevated PSA Performed By: #### P SATF, A1C WT eA #### [address] PSA,FREE% 10.1 % Normal [facility] Comment on above: Order Comment: Reaso n for Exam Elevated PSA Result Comment: Base d on the work of Brinda et al.SKINNY. 279(19):1542:47.1998 the percent free PSA may be used to determine the relative risk of prostate cancer in individual men.The percent probability of prostate cancer by patient age for men with non-suspicious PACO results and total PSa between 4 and 10 ng/ml is as follows: % Free PSA 50 - 64 yrs. 65 - 75 yrs. 0 - 10 56% 55% 10 - 15 24% 35% 15 - 20 17% 23% 20 - 25 10% 20% >25 5% 9% PERFORMED BY: [place] [address] PATHOLOGIST AIR CONDITIONING SERVICE TECHNICIAN LIANA SALTER M.D. Performed By: #### P SATF, A1C WT eA #### [place] [id number] [facility] Prostate Specific Ag Free [M ass/volume] in Serum or PlasmaOrdered By: Mario Hyman on 09-18-2022 Free PSA [Mass/Vol] 0.760 ng/mL [facility] Prostate specific Ag [Mass/v olume] in Serum or PlasmaOrdered By: Mario Hyman on 09-18-2022 Prostate specific Ag [Mass/Vol] 7.470 ng/mL 0.000-4.000 [facility] Serum or plasma free prostat e specific antigen (PSA)/total PSA ratioOrdered By: Mario Hyman on 09-18-2022 Free PSA/Total PSA [Mass fraction] 10.1 % [facility] Comment on above: Based on the work of Brinda et al.SKINNY. [id number] the percent free PSA may be used to determine the relative risk of prostate cancer in individual men.The percent probability of prostate cancer by patient age for men with non-suspicious PACO results and total PSa between 4 and 10 ng/ml is as follows:% Free PSA 50 - 64 yrs. 65 - 75 yrs. 0 - 10 56% 55% 10 - 15 24% 35% 15 - 20 17% 23% 20 - 25 10% 20% >25 5% 9% ER URINE PROFILEon 3 Bilirubin Ql (U) Negative Normal NEGATIVE [facility] Comment on above: Performed By: #### Milka SIMS ICRO #### [facility] [address] [place] [address] Dr. Jennifer Novak Clarity (U) CLEAR Normal CLEAR [facility] Comment on above: Performed By: #### Milka SIMS UMICRO #### [facility] [address] [place] [address] Dr. Jennifer Novak Color (U) LT. YELLOW Normal YELLOW [facility] Comment on above: Performed By: #### Milka SIMS UMICRO #### [facility] [address] [place] [address] Dr. Jennifer Novak ERUAHD A micrscopic examination will be performed if indicated. Normal [facility] Comment on above: Performed By: #### Milka SIMS UMICRO #### [facility] [address] [place] [address] Dr. Jennifer Novak Glucose Ql (U) Negative Normal NEGATIVE [facility] Comment on above: Performed By: #### DANY MOELLERRO #### [facility] [address] [place] [address] Dr. Jennifer Novak Hemoglobin Ql (U) LARGE Abnormal NEGATIVE [facility] Comment on above: Performed By: #### DANY MOELLERRO #### [facility] [address] [place] [address] Dr. Jennifer Novak Ketones Ql (U) Negative Normal NEGATIVE The [facility] Comment on above: Performed By: #### DANY MOELLERRO #### [facility] [address] [place] [address] Dr. Jennifer Novak LEUKOCYTES SMALL Abnormal NEGATIVE [facility] Comment on above: Performed By: #### DANY MOELLERRO #### [facility] [address] [place] [address] Dr. Jennifer Novak Nitrite Ql (U) Negative Normal NEGATIVE [facility] Comment on above: Performed By: #### DANY MOELLERRO #### [facility] [address] [place] [address] Dr. Jennifer Novak pH (U) 7.0 [pH] Normal 5-9 [facility] Comment on above: Performed By: #### DANY MEOLLERRO #### [facility] [address] [place] [address] Dr. Jennifer Novak Protein (U) [Mass/Vol] 100 mg/dL Abnormal NEGAT GEMMA/ TRACE [facility] Comment on above: Performed By: #### DANY MOELLERRO #### [facility] [address] [place] [address] Dr. Jennifer Novak SPEC GRAVITY 1.010 Normal 1.005-<=1.0 25 [facility] Comment on above: Performed By: #### DANY MOELLERRO #### [facility] [address] [place] [address] Dr. Jennifer Novak UR MICRO IND INDICATED Normal [facility] Comment on above: Performed By: #### ANNIE MOELLER #### [facility] [address] [place] [address] Dr. Jennifer Novak Urobilinogen Qn (U) 0.2 {Garland'U}/dL Normal 0.2 - 1. 0 [facility] Comment on above: Performed By: #### DANY MOELLERRO #### [facility] [address] [place] [address] Dr. Jennifer Novak URINE MICROSCOPIC ONLYon BACTERIA NONE SEEN Normal NONE SEEN [facility] Comment on above: Performed By: #### Milka SIMS UMICRO #### [facility] [address] [place] [address] Dr. Jennifer Novak Bacteria identified Cx Nom (U) NOT INDICATED Normal [facility] Comment on above: Performed By: #### Milka SIMS UMICRO #### [facility] [address] [place] [address] Dr. Jennifer Novak CAST NONE SEEN Normal NONE SEEN [facility] Comment on above: Performed By: #### DANY MOELLERRO #### [facility] [address] [place] [address] Dr. Jennifer Novak Crystals LM Nom (Urine sed) NONE SEEN Normal NONE SEEN [facility] Comment on above: Performed By: #### DANY MOELLERRO #### [facility] [address] [place] [address] Dr. Jennifer Novak Epithelial cells LM Ql (Urine sed) NONE SEEN Normal NONE SEEN /RARE [facility] Comment on above: Performed By: #### DANY MOELLERRO #### [facility] [address] [place] [address] Dr. Jennifer Novak MUCOUS NONE SEEN Normal NONE SEEN [facility] Comment on above: Performed By: #### Milka SIMS UMICRO #### [facility] [address] [place] [address] Dr. Jennifer Novak RBC 75-100 Abnormal 0-2 [facility] Comment on above: Performed By: #### Milka SIMS UMICRO #### [facility] [address] [place] [address] Dr. Jennifer Novak WBC 0-2 Abnormal NONE SEEN [facility] Comment on above: Performed By: #### E LEVIANNIE #### [facility] [address] [address] [address] Jennifer Novak CALCULI, URINARYon 3 2,8 Dihydroxyadenine Normal [facility] Comment on above: Performed By: #### C ALCULI #### [facility] [address] [address] [address] Jennifer Novak Ammonium Acid Urate Normal [facility] Comment on above: Performed By: #### C ALCULI #### [facility] [address] [address] [address] Jennifer Novak Bilirubin Ql (U) [facility] Comment on above: Performed By: #### C ALCULI #### [facility] [address] [address] [address] Jennifer Novak Ca Oxalate Dihydrate [facility] Comment on above: Performed By: #### C ALCULI #### [facility] [address] [address] [address] Jennifer Novak CaHPO4 (Brushite) [facility] Comment on above: Performed By: #### C ALCULI #### [facility] [address] [address] [address] Jennifer Novak Calcium Bilirubinate [facility] Comment on above: Performed By: #### C ALCULI #### [facility] [address] [address] [address] Jennifer Novak Calcium Carbonate Normal [facility] Comment on above: Performed By: #### C ALCULI #### [facility] [address] [address] [address] Jennifer Novak Calcium Oxalate Monohydrate 100 % [facility] Comment on above: Performed By: #### C ALCULI #### [facility] [address] [address] [address] Jennifer Novak Calcium Palmitate [facility] Comment on above: Performed By: #### C ALCULI #### [facility] [address] [address] [address] Jennifer Novak Calcium Phosphate [facility] Comment on above: Performed By: #### C ALCULI #### [facility] [address] [address] [address] Jennifer Novak Calcium Stearate Normal [facility] Comment on above: Performed By: #### C ALCULI #### [facility] [address] [address] [address] Jennifer Novak Carbonate Apatite Normal [facility] Comment on above: Performed By: #### C ALCULI #### [facility] [address] [address] [address] Jennifer Novak Cellular Material [facility] Comment on above: Performed By: #### C ALCULI #### [facility] [address] [address] [address] Jennifer Novak Cholesterol [facility] Comment on above: Performed By: #### C ALCULI #### [facility] [address] [address] [address] Jennifer Novak Color (U) Brown Normal [facility] Comment on above: Performed By: #### C ALCULI #### [facility] [address] [address] [address] Jennifer Novak Comment [facility] Comment on above: Performed By: #### C ALCULI #### [facility] [address] [address] [address] Jennifer Novak Comment: Comment Normal [facility] Comment on above: Result Comment: Phys kimberly questions regarding Calculi Analysis contact [facility] at: [phone]. Performed By: #### C ALCULI #### [facility] [address] [address] [address] Jennifer Novak Composition Comment [facility] Comment on above: Result Comment: Perc entage (Represents the % composition) Performed By: #### C ALCULI #### [facility] [address] [address] [address] Jennifer Novak Cystine Normal [facility] Comment on above: Performed By: #### C ALCULI #### [facility] [address] [address] [address] Jennifer Novak Disclaimer: Comment [facility] Comment on above: Result Comment: This test was developed and its performance characteristics determined by [facility]. It has not been cleared or approved by the Food and Drug Administration. Performed By: #### C ALCULI #### [facility] [address] [address] [address] Jennifer Novak Dried Blood Normal [facility] Comment on above: Performed By: #### C ALCULI #### [facility] [address] [address] [address] Jennifer Novak Drug or Metabolite Normal [facility] Comment on above: Performed By: #### C ALCULI #### [facility] [address] [place] [address] Dr. Jennifer Novak Hydroxyapatite [facility] Comment on above: Performed By: #### C ALCULI #### [facility] [address] [place] [address] Dr. Jennifer Novak Mg NH4 PO4 (Struvite) [facility] Comment on above: Performed By: #### C ALCULI #### [facility] [address] [place] [address] Dr. Jennifer Novak MgHPO4 (Newberyite) Normal [facility] Comment on above: Performed By: #### C ALCULI #### [facility] [address] [place] [address] Dr. Jennifer Novak Other component(s) Normal [facility] Comment on above: Performed By: #### C ALCULI #### [facility] [address] [place] [address] Dr. Jennifer Novak PDF . Normal [facility] Comment on above: Performed By: #### C ALCULI #### [facility] [address] [place] [address] Dr. Jennifer Novak Photo Comment [facility] Comment on above: Result Comment: Phot ograph will follow under a separate cover Performed By: #### C ALCULI #### [facility] [address] [place] [address] Dr. Jennifer Novak Please note: Comment [facility] Comment on above: Result Comment: Calc zeina report will follow via computer, mail or extension service specialist delivery. Performed By: #### C ALCULI #### [facility] [address] [address] [address] Jennifer Novak Size 5x6 Normal [facility] Comment on above: Result Comment: Mult iple pieces received. Dimensions of the largest piece reported. Performed By: #### C ALCULI #### [facility] [address] [address] [address] Jennifer Novak Sodium Acid Urate Normal [facility] Comment on above: Performed By: #### C ALCULI #### [facility] [address] [address] [address] Jennifer Novak Source Comment [facility] Comment on above: Result Comment: Righ t Ureter Performed By: #### C ALCULI #### [facility] [address] [place] [address] Dr. Jennifer Novak Triamterene [facility] Comment on above: Performed By: #### C ALCULI #### [facility] [address] [address] [address] Jennifer Novak Uric Acid [facility] Comment on above: Performed By: #### C ALCULI #### [facility] [address] [address] [address] Jennifer Novak Uric Acid Dihydrate Normal [facility] Comment on above: Performed By: #### C ALCULI #### [facility] [address] [address] [address] Jennifer Novak Weight 222 mg [facility] Comment on above: Performed By: #### C ALCULI #### [facility] [address] [address] [address] Jennifer Novak Xanthine [facility] Comment on above: Performed By: #### C ALCULI #### [facility] [address] [place] [address] Dr. Jennifer Novak CBC AUTO DIFFon 07-05-2022 BASO # 0.0 103/ul Normal 0.0-0.1 [facility] Comment on above: Performed By: #### C BC #### [facility] [address] [address] [address] Jennifer Novak Basophils/100 WBC (Bld) 0.2 % Normal 0.2-2.0 [facility] Comment on above: Performed By: #### C BC #### [facility] [address] [address] [address] Jennifer Novak EO # 0.0 103/ul Normal 0.0-0.7 [facility] Comment on above: Performed By: #### C BC #### [facility] [address] [address] [address] Jennifer Novak Eosinophils/100 WBC (Bld) 0.0 % Critically low 0.9-7.0 [facility] Comment on above: Performed By: #### C BC #### [facility] [address] [place] [address] Dr. Jennifer Novak Erythrocyte distribution width (RBC) [Ratio] 12.4 % Normal 11.0-15.0 [facility] Comment on above: Performed By: #### C BC #### [facility] [address] [place] [address] Dr. Jennifer Novak Hematocrit (Bld) [Volume fraction] 42.5 % Normal 42.0-54.0 [facility] Comment on above: Performed By: #### C BC #### [facility] [address] [place] [address] Dr. Jennifer Novak Hemoglobin (Bld) [Mass/Vol] 14.0 g/dL Normal 14.0-18.0 [facility] Comment on above: Performed By: #### C BC #### [facility] [address] [address] [address] Jennifer Novak IG # 0.04 10e3/ul Critically high 0.00-0.03 [facility] Comment on above: Performed By: #### C BC #### [facility] [address] [address] [address] Jennifer Novak IG % 0.3 % Normal 0.0-0.5 [facility] Comment on above: Performed By: #### C BC #### [facility] [address] [address] [address] Jennifer Novak LYMPH # 1.1 103/ul Critically low 1.2-3.8 [facility] Comment on above: Performed By: #### C BC #### [facility] [address] [place] [address] Dr. Jennifer Novak Lymphocytes/100 WBC (Bld) 9.1 % Critically low 20.5-60.0 [facility] Comment on above: Performed By: #### C BC #### [facility] [address] [place] [address] Dr. Jennifer Novak MANUAL DIFF REQ NO Normal [facility] Comment on above: Performed By: #### C BC #### [facility] [address] [place] [address] Dr. Jennifer Novak MCH (RBC) [Entitic mass] 30.4 pg Normal 25.9-34.0 [facility] Comment on above: Performed By: #### C BC #### [facility] [address] [place] [address] Dr. Jennifer Novak MCHC (RBC) [Mass/Vol] 32.9 g/dL Normal 29.9-35.2 [facility] Comment on above: Performed By: #### C BC #### [facility] [address] [place] [address] Dr. Jennifer Novak MCV (RBC) [Entitic vol] 92.2 fL Normal 80.0-94.0 [facility] Comment on above: Performed By: #### C BC #### [facility] [address] [place] [address] Dr. Jennifer Novak MONO # 0.8 103/ul Normal 0.3-0.8 [facility] Comment on above: Performed By: #### C BC #### [facility] [address] [place] [address] Dr. Jennifer Novak Monocytes/100 WBC (Bld) 7.0 % Normal 1.7-12.0 [facility] Comment on above: Performed By: #### C BC #### [facility] [address] [address] [address] Jennifer Novak NEUT # 9.6 103/ul Critically high 1.4-6.[address] [facility] Comment on above: Performed By: #### C BC #### [facility] [address] [address] [address] Jennifer Novak Neutrophils/100 WBC (Bld) 83.4 % Critically high 43.0-75.0 [facility] Comment on above: Performed By: #### C BC #### [facility] [address] [address] [address] Jennifer Novak Platelet mean volume (Bld) [Entitic vol] 10.8 fL Normal 9.5-13.5 [facility] Comment on above: Performed By: #### C BC #### [facility] [address] [address] [address] Jennifer Novak PLT 196 103/ul Normal 150-450 [facility] Comment on above: Performed By: #### C BC #### [facility] [address] [address] [address] Jennifer Novak RBC 4.61 106/ul Critically low 4.70-6.[address] [facility] Comment on above: Performed By: #### C BC #### [facility] [address] [address] [address] Jennifer Novak WBC 11.5 103/ul Critically high 4.0-11.0 [facility] Comment on above: Performed By: #### C BC #### [facility] [address] [address] [address] Jennifer Novak POINT OF CARE GLUCOSEon -0 Glucose [Mass/Vol] 124 mg/dL Critically high 74-106 [facility] Comment on above: Performed By: #### P OCGLUC #### [facility] [address] [address] [address] Jennifer Novak Glucose [Mass/Vol] 259 mg/dL Critically high 74-106 [facility] Comment on above: Performed By: #### C MP #### [facility] [address] [address] [address] Jennifer Novak PROF 14(COMP METB)on 023 Albumin [Mass/Vol] 3.5 g/dL Normal 3.4-5.0 [facility] Comment on above: Performed By: #### C MP #### [facility] [address] [address] [address] Jennifer Novak Albumin/Globulin [Mass ratio] 1.2 {ratio} Normal [facility] Comment on above: Performed By: #### C MP #### [facility] [address] [place] [address] Dr. Jennifer Novak ALP [Catalytic activity/Vol] 61 U/L Normal 46-116 [facility] Comment on above: Performed By: #### C MP #### [facility] [address] [place] [address] Dr. Jennifer Novak ALT [Catalytic activity/Vol] 28 U/L Normal 16-63 [facility] Comment on above: Performed By: #### C MP #### [facility] [address] [place] [address] Dr. Jennifer Novak Anion gap [Moles/Vol] 13.4 mmol/L Normal [facility] Comment on above: Performed By: #### C MP #### [facility] [address] [place] [address] Dr. Jennifer Novak AST [Catalytic activity/Vol] 19 U/L Normal 15-37 [facility] Comment on above: Performed By: #### C MP #### [facility] [address] [place] [address] Dr. Jennifer Novak Bilirubin [Mass/Vol] 0.5 mg/dL Normal 0.2-1.0 [facility] Comment on above: Performed By: #### C MP #### [facility] [address] [place] [address] Dr. Jennifer Novak Calcium [Mass/Vol] 8.7 mg/dL Normal 8.5-10.1 [facility] Comment on above: Performed By: #### C MP #### [facility] [address] [address] [address] Jennifer Novak Chloride [Moles/Vol] 104 mmol/L Normal 98-107 [facility] Comment on above: Performed By: #### C MP #### [facility] [address] [address] [address] Jennifer Novak CO2 [Moles/Vol] 26.4 mmol/L Normal 21.0-32.0 [facility] Comment on above: Performed By: #### C MP #### [facility] [address] [address] [address] Jennifer Novak Creatinine [Mass/Vol] 0.79 mg/dL Normal 0.70-1.30 [facility] Comment on above: Performed By: #### C MP #### [facility] [address] [place] [address] Dr. Jennifer Novak EGFR-AF CUBAN >60 Normal >=60 [facility] Comment on above: Performed By: #### C MP #### [facility] [address] [place] [address] Dr. Jennifer Novak EGFR-NON AF CUBAN >60 Normal >=60 [facility] Comment on above: Performed By: #### C MP #### [facility] [address] [address] [address] Jennifer Novak Globulin (S) [Mass/Vol] 3.0 g/dL Normal [facility] Comment on above: Performed By: #### C MP #### [facility] [address] [address] [address] Jennifer Novak Glucose [Mass/Vol] 157 mg/dL Critically high 74-106 [facility] Comment on above: Performed By: #### C MP #### [facility] [address] [address] [address] Jennifer Novak Potassium [Moles/Vol] 3.8 mmol/L Normal 3.5-5.1 [facility] Comment on above: Performed By: #### C MP #### [facility] [address] [place] [address] Dr. Jennifer Novak Protein [Mass/Vol] 6.5 g/dL Normal 6.4-8.2 [facility] Comment on above: Performed By: #### C MP #### [facility] [address] [place] [address] Dr. eJnnifer Novak Sodium [Moles/Vol] 140 mmol/L Normal 136-145 [facility] Comment on above: Performed By: #### C MP #### [facility] [address] [place] [address] Dr. Jennifer Novak Urea nitrogen [Mass/Vol] 20.0 mg/dL Critically high 7.0-18.0 [facility] Comment on above: Performed By: #### C MP #### [facility] [address] [place] [address] Dr. Jennifer Novak Urea nitrogen/Creatinine [Mass ratio] 25.3 mg/mg Normal [facility] Comment on above: Performed By: #### C MP #### [facility] [address] [place] [address] Dr. Jennifer Novak CBC AUTO DIFFon 07-04-2022 BASO # 0.0 103/ul Normal 0.0-0.1 [facility] Comment on above: Performed By: #### C MP #### [facility] [address] [place] [address] Dr. Jennifer Novak Basophils/100 WBC (Bld) 0.1 % Critically low 0.2-2.0 [facility] Comment on above: Performed By: #### C MP #### [facility] [address] [place] [address] Dr. Jennifer Novak EO # 0.0 103/ul Normal 0.0-0.7 [facility] Comment on above: Performed By: #### C MP #### [facility] [address] [place] [address] Dr. Jennifer Novak Eosinophils/100 WBC (Bld) 0.0 % Critically low 0.9-7.0 [facility] Comment on above: Performed By: #### C MP #### [facility] [address] [place] [address] Dr. Jennifer Novak Erythrocyte distribution width (RBC) [Ratio] 12.4 % Normal 11.0-15.0 [facility] Comment on above: Performed By: #### C MP #### [facility] [address] [place] [address] Dr. Jennifer Novak Hematocrit (Bld) [Volume fraction] 44.3 % Normal 42.0-54.0 [facility] Comment on above: Performed By: #### C MP #### [facility] [address] [place] [address] Dr. Jennifer Novak Hemoglobin (Bld) [Mass/Vol] 15.2 g/dL Normal 14.0-18.0 [facility] Comment on above: Performed By: #### C MP #### [facility] [address] [place] [address] Dr. Jennifer Novak IG # 0.03 10e3/ul Normal 0.00-0.03 [facility] Comment on above: Performed By: #### C MP #### [facility] [address] [place] [address] Dr. Jennifer Novak IG % 0.2 % Normal 0.0-0.5 [facility] Comment on above: Performed By: #### C MP #### [facility] [address] [place] [address] Dr. Jennifer Novak LYMPH # 0.5 103/ul Critically low 1.2-3.8 [facility] Comment on above: Performed By: #### C MP #### [facility] [address] [place] [address] Dr. Jennifer Novak Lymphocytes/100 WBC (Bld) 4.3 % Critically low 20.5-60.0 [facility] Comment on above: Performed By: #### C MP #### [facility] [address] [place] [address] Dr. Jennifer Novak MANUAL DIFF REQ NO Normal [facility] Comment on above: Performed By: #### C MP #### [facility] [address] [place] [address] Dr. Jennifer Novak MCH (RBC) [Entitic mass] 31.1 pg Normal 25.9-34.0 [facility] Comment on above: Performed By: #### C MP #### [facility] [address] [place] [address] Dr. Jennifer Novak MCHC (RBC) [Mass/Vol] 34.3 g/dL Normal 29.9-35.2 [facility] Comment on above: Performed By: #### C MP #### [facility] [address] [place] [address] Dr. Jennifer Novak MCV (RBC) [Entitic vol] 90.8 fL Normal 80.0-94.0 [facility] Comment on above: Performed By: #### C MP #### [facility] [address] [place] [address] Dr. Jennifer Novak MONO # 0.2 103/ul Critically low 0.3-0.8 [facility] Comment on above: Performed By: #### C MP #### [facility] [address] [place] [address] Dr. Jennifer Novak Monocytes/100 WBC (Bld) 1.6 % Critically low 1.7-12.0 [facility] Comment on above: Performed By: #### C MP #### [facility] [address] [place] [address] Dr. Jennifer Novak NEUT # 11.5 103/ul Critically high 1.4-6.5 [facility] Comment on above: Performed By: #### C MP #### [facility] [address] [place] [address] Dr. Jennifer Novak Neutrophils/100 WBC (Bld) 93.8 % Critically high 43.0-75.0 [facility] Comment on above: Result Comment: conf irmed analyzer count with manual scan Performed By: #### C MP #### [facility] [address] [place] [address] Dr. Jennifer Novak Platelet mean volume (Bld) [Entitic vol] 10.6 fL Normal 9.5-13.5 [facility] Comment on above: Performed By: #### C MP #### [facility] [address] [place] [address] Dr. Jennifer Novak PLT 189 103/ul Normal 150-450 [facility] Comment on above: Performed By: #### C MP #### [facility] [address] [place] [address] Dr. Jennifer Novak RBC 4.88 106/ul Normal 4.70-6.10 [facility] Comment on above: Performed By: #### C MP #### [facility] [address] [place] [address] Dr. Jennifer Novak WBC 12.2 103/ul Critically high 4.0-11.0 [facility] Comment on above: Performed By: #### C MP #### [facility] [address] [place] [address] Dr. Jennifer Nov[facility] SARS-CoV-2 (COVID-19) RNA ELBA+probe Ql (Unsp spec) Not detected Normal NOT DETECTED [facility] Comment on above: Result Comment: When diagnostic testing is negative, the possibility of a false negative should be considered in the context of a patient's recent exposures and the presence of clinical signs and symptoms consistent with SARS-CoV-2. This test is not yet approved or cleared by the [place] FDA. When there are no FDA-approved or cleared tests available, and other criteria are met, FDA can make tests available under an emergency access mechanism called an Emergency Use Authorization (EUA). The EUA for this test is supported by the [place] of Health and Human Service's declaration that circumstances exist to justify the emergency use of in vitro diagnostics for the detection and/or diagnosis of the virus that causes COVID-19. This EUA will remain in effect for the duration of the COVID-19 declaration justifying emergency of IVDs, unless it is terminated or revoked by the FDA (after which the test may no longer be used). Performed By: #### C VDTBH #### [facility] [address] [place] [address] Dr. Jennifer Novak POINT OF CARE GLUCOSEon Glucose [Mass/Vol] 113 mg/dL Critically high 74-106 [facility] Comment on above: Performed By: #### P OCGLUC #### [facility] [address] [address] [address] Jennifer Novak PROF CHEM 8 (BAS METB)on Anion gap [Moles/Vol] 14.2 mmol/L Normal [facility] Comment on above: Performed By: #### C MP #### [facility] [address] [address] [address] Jennifer Novak Calcium [Mass/Vol] 9.0 mg/dL Normal 8.5-10.1 [facility] Comment on above: Performed By: #### C MP #### [facility] [address] [address] [address] Jennifer Novak Chloride [Moles/Vol] 102 mmol/L Normal 98-107 [facility] Comment on above: Performed By: #### C MP #### [facility] [address] [place] [address] Dr. Jennifer Novak CO2 [Moles/Vol] 26.9 mmol/L Normal 21.0-32.0 [facility] Comment on above: Performed By: #### C MP #### [facility] [address] [address] [address] Jennifer Novak Creatinine [Mass/Vol] 1.04 mg/dL Normal 0.70-1.30 [facility] Comment on above: Performed By: #### C MP #### [facility] [address] [address] [address] Jennifer Novak EGFR-AF CUBAN >60 Normal >=60 [facility] Comment on above: Performed By: #### C MP #### [facility] [address] [address] [address] Jennifer Novak EGFR-NON AF CUBAN >60 Normal >=60 [facility] Comment on above: Performed By: #### C MP #### [facility] [address] [address] [address] Jennifer Novak Glucose [Mass/Vol] 256 mg/dL Critically high 74-106 [facility] Comment on above: Performed By: #### C MP #### [facility] [address] [address] [address] Jennifer Novak Potassium [Moles/Vol] 4.1 mmol/L Normal 3.5-5.1 [facility] Comment on above: Performed By: #### C MP #### [facility] [address] [address] [address] Jennifer Novak Sodium [Moles/Vol] 139 mmol/L Normal 136-145 [facility] Comment on above: Performed By: #### C MP #### [facility] [address] [address] [address] Jennifer Novak Urea nitrogen [Mass/Vol] 18.0 mg/dL Normal 7.0-18.0 [facility] Comment on above: Performed By: #### C MP #### [facility] [address] [place] [address] Dr. eJnnifer Novak Urea nitrogen/Creatinine [Mass ratio] 17.3 mg/mg Normal [facility] Comment on above: Performed By: #### C MP #### [facility] [address] [place] [address] Dr. Jennifer Novak PROTIMEon 07-04-2022 INR Coag (PPP) [Relative time] 1.00 {INR} Normal [facility] Comment on above: Performed By: #### P TT, PT #### [facility] [address] [place] [address] Dr. Jennifer Novak INR GUIDELINES SEE BELOW Normal [facility] Comment on above: Result Comment: KAREEM RED INR: 2.0 - 3.0 CONDITIONS NOT LISTED BELOW 2.5 - 3.5 FOR PROSTHETIC HEART VALVE REPLACEMENT 2.5 - 3.5 RECURRENT THROMBOSIS Performed By: #### P TT, PT #### [facility] [address] [place] [address] Dr. Jennifer Novak PT Coag (PPP) [Time] 10.6 s Normal 9.0-11.6 [facility] Comment on above: Performed By: #### P TT, PT #### [facility] [address] [place] [address] Dr. Jennifer Novak PTTon 07-04-2022 aPTT Coag (Bld) [Time] 25.4 s Normal 22.3-36.2 [facility] Comment on above: Performed By: #### C MP #### [facility] [address] [place] [address] Dr. Jennifer Novak PROTIMEon 07-02-2022 INR Coag (PPP) [Relative time] 0.97 {INR} Normal [facility] Comment on above: Performed By: #### C MP #### [facility] [address] [place] [address] Dr. Jennifer Novak INR GUIDELINES SEE BELOW Normal [facility] Comment on above: Result Comment: KAREEM RED INR: 2.0 - 3.0 CONDITIONS NOT LISTED BELOW 2.5 - 3.5 FOR PROSTHETIC HEART VALVE REPLACEMENT 2.5 - 3.5 RECURRENT THROMBOSIS Performed By: #### C MP #### [facility] [address] [place] [address] Dr. Jennifer Novak PT Coag (PPP) [Time] 10.3 s Normal 9.0-11.6 [facility] Comment on above: Performed By: #### C MP #### [facility] [address] [place] [address] Dr. Jennifer Novak PTTon 07-02-2022 aPTT Coag (Bld) [Time] 27.0 s Normal 22.3-36.2 [facility] Comment on above: Performed By: #### C MP #### [facility] [address] [place] [address] Dr. Jennifer Novak Alanine aminotransferase [En zymatic activity/volume] in Serum or PlasmaOrdered By: Mario Hyman on 06-11-2022 ALT [Catalytic activity/Vol] 27 U/L 7-52 [facility] Albumin [Mass/volume] in Ser um or Plasma by Bromocresol green (BCG) dye binding methoOrdered By: Mario Hyman on 06-11-2022 Albumin BCG dye [Mass/Vol] 4.4 g/dL 3.5-5.7 [facility] Alkaline phosphatase [Enzyma tic activity/volume] in Serum or PlasmaOrdered By: Mario Hyman on 06-11-2022 ALP [Catalytic activity/Vol] 57 U/L 34-104 [facility] Aspartate aminotransferase [ Enzymatic activity/volume] in Serum or PlasmaOrdered By: Mario Hyman on 06-11-2022 AST [Catalytic activity/Vol] 21 U/L 13-39 [facility] Basophils Auto (Bld) [#/Vol] Ordered By: Mario Hyman on 06-11-2022 Basophils (Bld) [#/Vol] 0.0 10*3/uL 0.0-0.2 [facility] Basophils/100 WBC Auto (Bld) Ordered By: Mario Hyman on 06-11-2022 Basophils/100 WBC (Bld) 0.8 % . [facility] Bilirubin.total [Mass/volume ] in Serum or PlasmaOrdered By: Mario Hyman on 06-11-2022 Bilirubin [Mass/Vol] 0.9 mg/dL 0.3-1.0 [facility] Calcium [Mass/volume] in Ser um or PlasmaOrdered By: Mario Hyman on 06-11-2022 Calcium [Mass/Vol] 8.9 mg/dL 8.6-10.3 [facility] Carbon dioxide, total [Moles /volume] in Serum or PlasmaOrdered By: Mario Hyman on 06-11-2022 CO2 [Moles/Vol] 26.7 mmol/L 21.0-31.0 [facility] Chloride [Moles/volume] in S eder or PlasmaOrdered By: Mario Hyman on 06-11-2022 Chloride [Moles/Vol] 105 mmol/L 98-107 [facility] Cholesterol [Mass/volume] in Serum or PlasmaOrdered By: Mario Hyman on 06-11-2022 Cholesterol [Mass/Vol] 183 mg/dL 140-200 [facility] Comment on above: Chol less than 200 m g/dl low riskChol 201-239 mg/dl borderline riskChol 240 mg/dl and greater high risk Cholesterol in LDL Calc [Mas s/Vol]Ordered By: Mario Hyman on 06-11-2022 Cholesterol in LDL [Mass/Vol] 114 mg/dL 0-100 [facility] Comment on above: LDL ATP III CLASSIFI CATIONLDL less than 100 mg/dL OptimalLDL 100-129 mg/dL Near or above optimalLDL 130-159 mg/dL Borderline highLDL 160-189 mg/dL HighLDL greater than 189 mg/dL Very high Cholesterol in VLDL Calc [Ma ss/Vol]Ordered By: Mario Hyman on 06-11-2022 Cholesterol in VLDL [Mass/Vol] 26 mg/dL [facility] Creatinine [Mass/volume] in Serum or PlasmaOrdered By: Mario Hyman on 06-11-2022 Creatinine [Mass/Vol] 1.02 mg/dL 0.70-1.30 [facility] Eosinophils Auto (Bld) [#/Vo l]Ordered By: Mario Hyman on 06-11-2022 Eosinophils (Bld) [#/Vol] 0.0 10*3/uL 0.0-0.45 [facility] Eosinophils/100 WBC Auto (Bl d)Ordered By: Mario Hyman on 06-11-2022 Eosinophils/100 WBC (Bld) 0.0 % . [facility] Erythrocyte distribution wid th Auto (RBC) [Ratio]Ordered By: Mario Hyman on 06-11-2022 Erythrocyte distribution width (RBC) [Ratio] 13.2 % 12.0-14.8 [facility] Globulin Calc (S) [Mass/Vol] Ordered By: Mario Hyman on 06-11-2022 Globulin (S) [Mass/Vol] 2.1 g/dL [facility] Glucose [Mass/volume] in Ser um or PlasmaOrdered By: Mario Hyman on 06-11-2022 Glucose [Mass/Vol] 125 mg/dL 74-109 [facility] Comment on above: ADA recommended refe rence rangeRandom Glucose Reference Range is dependent on time and content of last meal. Glucose of more than 200 mg/dL in a nonstressed, ambulatory subject supports the diagnosis of Diabetes Mellitus. Hematocrit Auto (Bld) [Volum e fraction]Ordered By: Mario Hyman on 06-11-2022 Hematocrit (Bld) [Volume fraction] 40.5 % 38.8-50.0 [facility] Hemoglobin [Mass/volume] in BloodOrdered By: Mario Hyman on 06-11-2022 Hemoglobin (Bld) [Mass/Vol] 13.7 g/dL 13.0-17.0 [facility] - Chemistry and C hemistry - challengeOrdered By: Mario Hyman on 06-11-2022 GFR/1.73 sq M.predicted MDRD (S/P/Bld) [Vol rate/Area] mL/min/{1.73_m2} [facility] Leukocytes [#/volume] correc jonatan for nucleated erythrocytes in Blood by Automated counOrdered By: Mario Hyman on 06-11-2022 WBC corrected for nucl RBC Auto (Bld) [#/Vol] 4.9 10*3/uL 4.1-10.5 [facility] Lymphocytes Auto (Bld) [#/Vo l]Ordered By: Mario Hyman on 06-11-2022 Lymphocytes (Bld) [#/Vol] 1.2 10*3/uL 1.00-4.8 [facility] Lymphocytes/100 WBC Auto (Bl d)Ordered By: Mario Hyman on 06-11-2022 Lymphocytes/100 WBC (Bld) 24.9 % . [facility] MCH Auto (RBC) [Entitic mass ]Ordered By: Mario Hyman on 06-11-2022 MCH (RBC) [Entitic mass] 30.5 pg 27.5-35.2 [facility] MCHC Auto (RBC) [Mass/Vol]Or dered By: Mario Hyman on 06-11-2022 MCHC (RBC) [Mass/Vol] 33.8 g/dL 32.5-35.6 [facility] MCV Auto (RBC) [Entitic vol] Ordered By: Mario Hyman on 06-11-2022 MCV (RBC) [Entitic vol] 90.3 fL 83.5-101 [facility] Monocytes Auto (Bld) [#/Vol] Ordered By: Mario Hyman on 06-11-2022 Monocytes (Bld) [#/Vol] 0.5 10*3/uL 0.0-0.8 [facility] Monocytes/100 WBC Auto (Bld) Ordered By: Mario Hyman on 06-11-2022 Monocytes/100 WBC (Bld) 9.4 % . [facility] Neutrophils Auto (Bld) [#/Vo l]Ordered By: Mario Hyman on 06-11-2022 Neutrophils (Bld) [#/Vol] 3.2 10*3/uL 1.8-7.7 [facility] Neutrophils/100 WBC Auto (Bl d)Ordered By: Mario Hyman on 06-11-2022 Neutrophils/100 WBC (Bld) 64.9 % . [facility] No Panel InformationOrdered By: Mario Hyman on 06-11-2022 Pharmacy Creatinine Clearance (Chem N/A [facility] Nucleated erythrocytes [Pres ence] in Blood by Automated countOrdered By: Mario Hyman on 06-11-2022 Nucleated RBC Auto Ql (Bld) 0.1 /100{WBC} 0-0.5 [facility] Platelet mean volume Auto (B ld) [Entitic vol]Ordered By: Mario Hyman on 06-11-2022 Platelet mean volume (Bld) [Entitic vol] 9.2 fL 6.6-10.1 [facility] Platelets Auto (Bld) [#/Vol] Ordered By: Mario Hyman on 06-11-2022 Platelets (Bld) [#/Vol] 168 10*3/uL 150-450 [facility] Potassium [Moles/volume] in Serum or PlasmaOrdered By: Mario Hyman on 06-11-2022 Potassium [Moles/Vol] 4.4 mmol/L 3.5-5.1 [facility] Protein [Mass/volume] in Ser um or PlasmaOrdered By: Mario Hyman on 06-11-2022 Protein [Mass/Vol] 6.5 g/dL 6.4-8.9 [facility] RBC Auto (Bld) [#/Vol]Ordere d By: Mario Hyman on 06-11-2022 RBC (Bld) [#/Vol] 4.49 10*6/uL 3.90-5.60 [facility] Serum or plasma albumin/glob ulin mass ratioOrdered By: Mario Hyman on 06-11-2022 Albumin/Globulin [Mass ratio] 2.1 {ratio} [facility] Serum or plasma anion gap de terminationOrdered By: Mario Hyman on 06-11-2022 Anion gap [Moles/Vol] 10.7 mmol/L 6.0-15.0 [facility] Serum or plasma high density lipoprotein (HDL) cholesterol measurementOrdered By: Mario Hyman on 06-11-2022 Cholesterol in HDL [Mass/Vol] 43 mg/dL 29-71 [facility] Comment on above: HDL CHOL ATP-III CLA SSIFICATION Cardiovascular RiskHDL > or equal to 60 mg/dL LOWHDL < 40 mg/dL HIGH Serum or plasma total choles terol/high density lipoprotein (HDL) cholesterol mass ratOrdered By: Mario Hyman on 06-11-2022 Cholesterol.total/Chol esterol in HDL [Mass ratio] 4.3 {ratio} <5.0 [facility] Sodium [Moles/volume] in Ser um or PlasmaOrdered By: Mario Hyman on 06-11-2022 Sodium [Moles/Vol] 138 mmol/L 136-145 [facility] Thyrotropin [Units/volume] i n Serum or PlasmaOrdered By: Mario Hyman on 06-11-2022 TSH Qn 2.35 m[IU]/L 0.45-5.33 [facility] Triglyceride [Mass/volume] i n Serum or PlasmaOrdered By: Mario Hyman on 06-11-2022 Triglyceride [Mass/Vol] 132 mg/dL 0-149 [facility] Comment on above: TRIG ATP III CLASSIF ICATIONTRIG less than 150 mg/dL NormalTRIG 150-199 mg/dL Borderline highTRIG 200-500 mg/dL High TRIG greater than 500 mg/dL Very highStandard traceable to the Center for Disease Conrtrol and Prevention (CDC) test method. Urea nitrogen [Mass/volume] in Serum or PlasmaOrdered By: Mario Hyman on 06-11-2022 Urea nitrogen [Mass/Vol] 22 mg/dL 7-25 [facility] Vitamin D+Metabolites [Mass/ volume] in Serum or PlasmaOrdered By: Mario Hyman on 06-11-2022 Vitamin D+Metabolites [Mass/Vol] 63.0 ng/mL 30-100 [facility] Comment on above: VITAMIN D STATUS 25( [place])VITAMIN D RANGE (ng/mL) Deficient <20 Insufficient 20 to <30Sufficient 30 to 100Reference: Ginny MF,Steffen NC, Maria De Jesus URIZ, et al. Evaluation,treatment, and prevention of vitamin D deficiency; an Endocrine Society clinical practice guideline. JCEM. 2010; 96(7):1911-30. WBC Auto (Bld) [#/Vol]Ordere d By: Mario Hyman on 06-11-2022 WBC (Bld) [#/Vol] 4.9 10*3/uL 4.1-10.5 [facility] STR cardiac stress/regularon 06-01-2022 STR cardiac stress/regular [facility] [employer] Other STR cardiac stress/regular [facility] [employer] Other STR cardiac stress/regular [facility] [employer] Other STR cardiac stress/regular [address] [address] [facility] Other STR cardiac stress/regular Cardiac Stress Test [facility] [employer] Other STR cardiac stress/regular Signed [facility] Other STR cardiac stress/regular Patient: Angus Auguste MR#: [id number] [place] [employer] Other STR cardiac stress/regular 234 [facility] Other STR cardiac stress/regular : 1950 Acct:[id number] [facility] Other STR cardiac stress/regular Age/Sex: 72 / M ADM Date: 06/01/22 [facility] Other STR cardiac stress/regular Loc: Room: Type: [facility] Other STR cardiac stress/regular Attending Dr: Mario Hyman DO [facility] Other STR cardiac stress/regular Copies to: Mario Hyman,DO [facility] Other STR cardiac stress/regular Harsha Plascencia MD, [facility] Other STR cardiac stress/regular Ordering Provider: Mario Hyman, [facility] Other STR cardiac stress/regular Date of Service: 06/01/22 [facility] Other STR cardiac stress/regular STR/STR cardiac stress/regular: Chest pain, unspecified type [facility] Other STR cardiac stress/regular ORDERED BY: Mario Hyman, DO [facility] Other STR cardiac stress/regular A 72-year-old patient with chest pain. [facility] Other STR cardiac stress/regular Resting EKG revealed normal sinus rhythm with a heart rate of 79 beats per minute. Resting blood [facility] Other STR cardiac stress/regular pressure 120/80 mmHg. Xiaoi Robert Other STR cardiac stress/regular The patient was exercised on a Tomi protocol for 6 minutes, achieving a maximum heart rate of 137 [facility] Other STR cardiac stress/regular beats per minute. This represented 85% of predicted maximum heart rate. The blood pressure elijah to [facility] Other STR cardiac stress/regular 200/85 mmHg. The patient achieved maximum workload of 7 METs. The test ended due to leg fatigue. [facility] Other STR cardiac stress/regular During exercise, no ischemic EKG changes were noted. The patient had no symptoms of chest pain and [facility] Other STR cardiac stress/regular no cardiac arrhythmias were noted. The patient demonstrated appropriate heart rate recovery. [facility] Other STR cardiac stress/regular CONCLUSION: [facility] Other STR cardiac stress/regular 1. Normal exercise tolerance test after completing 6 minutes on a Tomi protocol, achieving 7 [facility] Other STR cardiac stress/regular METs and 85% of predicted maximum heart rate. [facility] Other STR cardiac stress/regular 2. No chest pain or cardiac arrhythmias induced by exercise. [facility] Other STR cardiac stress/regular 3. No ischemic EKG changes noted with exercise. [facility] Other STR cardiac stress/regular 4. Fair exercise tolerance for age with normal heart rate recovery and achievement of Yanes [facility] Other STR cardiac stress/regular treadmill score of 6+. No previous studies are available for comparison. [facility] Other STR cardiac stress/regular Transcribed By: NTS 06/01/22 1450 [facility] Other STR cardiac stress/regular Dictated By: Harsha Plascencia MD, [facility] 06/01/22 1356 [facility] Other STR cardiac stress/regular Signed By: [facility] Other STR cardiac stress/regular 06/03/22 1248 [facility] Other No Panel InformationOrdered By: Melanie Lopes on 04-27-2022 Prostate Specific Antigen Total 6.560 ng/mL 0.000-4.000 [facility] Prostate Specific Ag Free [M ass/volume] in Serum or PlasmaOrdered By: Melanie Lopes on 04-27-2022 Free PSA [Mass/Vol] 0.980 ng/mL [facility] Serum or plasma free prostat e specific antigen (PSA)/total PSA ratioOrdered By: Melanie Lopes on 04-27-2022 Free PSA/Total PSA [Mass fraction] 14.0 % [facility] Comment on above: Based on the work of Brinda et al.SKINNY. 279(19):1542:47.1998 the percent free PSA may be used to determine the relative risk of prostate cancer in individual men.The percent probability of prostate cancer by patient age for men with non-suspicious PACO results and total PSa between 4 and 10 ng/ml is as follows:% Free PSA 50 - 64 yrs. 65 - 75 yrs. 0 - 10 56% 55% 10 - 15 24% 35% 15 - 20 17% 23% 20 - 25 10% 20% >25 5% 9% Testosterone [Mass/volume] i n Serum or PlasmaOrdered By: Melanie Lopes on 12-06-2021 Testosterone [Mass/Vol] 2.69 ng/mL 1.75-7.81 [facility] A1C HEMOGLOBINon 11-03-2021 HbA1c (Bld) [Mass fraction] 6.2 % [facility] Other C reactive protein [Mass/vol ume] in Serum or PlasmaOrdered By: Mario Hyman on 11-03-2021 CRP [Mass/Vol] 0.6 mg/dL 0.0-1.0 [facility] C-Reactive Proteinon 022 C-Reactive Protein 0.6 mg/dL Normal 0.0-1.0 mg/dL [facility] Other Erythrocyte Sedimentation Ra duane 11-03-2021 ESR (Bld) [Velocity] 19 mm/h Normal 0-[address] [facility] Other Erythrocyte sedimentation ra te by Photometric methodOrdered By: Mario Hyman on 11-03-2021 ESR Photometric method (Bld) [Velocity] 19 mm/hr 0-19 [facility] Free testosterone measuremen t by LC-MS/MSOrdered By: Mario Hyman on 11-03-2021 Testosterone Free [Mass/Vol] 4.8 pg/mL 6.6-18.1 [facility] Comment on above: Performed at: [facility] [address] [place], [place] [id number] Category Manager: Toi Hernandez PhD, Phone: [phone] Performed at: [facility] [address] [id number] Category Manager: Iain Jauregui MD, Phone: [phone] Performed at: [email or web address] [place], [place] [id number] Director: Toi Hernandez PhD, Phone: [phone] at: [facility] [address] [id number] Director: Iain Jauregui MD, Phone: [phone] HbA1c (Bld) [Mass fraction]o n 11-03-2021 A1C HEMOGLOBIN Xiaoi Robert Other Laboratory - Chemistry and C hemistry - challengeOrdered By: Mario Hyman on 11-03-2021 Testosterone [Mass/Vol] 296 ng/dL [id number] [facility] Comment on above: Adult male reference interval is based on a population of healthy nonobese males (BMI <30) between 19 and 39 years old. [facility], et.al. JCEM 2017,102;7481-8466. PMID: 54216249. Adult male reference interval is based on a population ofhealthy nonobese males (BMI <30) between 19 and 39 yearsold. Travison, et.al. JCEM 2017,102;2208-8964. PMID:80464843. Serum homogeneous pattern an tinuclear antibody (MONISHA) titerOrdered By: Mario Hyman on 11-03-2021 Homogenous nuclear Ab pattern (S) [Titer] N/A [facility] Serum nuclear antibody titer Ordered By: Mario Hyman on 11-03-2021 Nuclear Ab (S) [Titer] Negative . [facility] Comment on above: Negative <1:80 Borderline 1:80 Positive >1:80 ICAP nomenclature: AC-0 For more information about Hep-2 cell patterns use ANApatterns.org, the official website for the International Consensus on Antinuclear Antibody (MONISHA) Patterns (ICAP). Performed at: - [facility] [address] [place], [place] [id number] Category Manager: Toi Hernandez PhD, Phone: [phone] Negative <1:80 Deirdre joseph 1:80 Positive >1:80ICAP nomenclature: AC-0For more information about Hep-2 cell patterns useANApatterns.org, the official website for theInternational Consensus on Antinuclear Antibody (MONISHA)Patterns (ICAP).Performed at: [facility] [address] [id number] Director: Toi Hernandez PhD, Phone: [phone] Serum or plasma rheumatoid f actor measurement (units/volume)Ordered By: Mario Hyman on 11-03-2021 Rheumatoid factor Qn [IU]/mL <14.0 [facility] Comment on above: Performed at: [facility] [address] [place], [place] [id number] Category Manager: Toi Hernandez PhD, Phone: [phone] Performed at: [facility] [address] [id number] Director: Toi Hernandez PhD, Phone: [phone] Serum or plasma uric acid me asurement (mass/volume)Ordered By: Mario Hyman on 11-03-2021 Urate [Mass/Vol] 6.5 mg/dL 2.6-7.2 [facility] Uric Acidon 11-03-2021 Urate [Mass/Vol] 6.3235020 mg/dL Normal 2.6-7.2 mg/dL [facility] Other US KIDNEYSon 10-25-2021 US KIDNEYS EXAMINATION: US [facility] HISTORY: H/O: urinary stone , flank pain COMPARISON: No relevant comparison available. TECHNIQUE: Ultrasound examination was performed of the kidneys and urinary bladder. FINDINGS: RIGHT KIDNEY: No evidence of pelvocaliectasis, mass, or calculi. Normal renal cortical parenchymal echogenicity. Contains a 1.6 cm benign-appearing cyst. No significant cortical thinning. Color Doppler demonstrates blood flow within the kidney. Kidney: 11.0 x 5.9 x 6.7 cm LEFT KIDNEY: Contains a nonobstructing 4 mm stone. No evidence of pelvocaliectasis or mass. Normal renal cortical parenchymal echogenicity. No significant cortical thinning. Color Doppler demonstrates blood flow within the kidney. Kidney: 12.7 x 5.2 x 5.9 cm BLADDER: No visible wall thickening, mass, or calculi. Post void residual: URETERAL JETS: Visualized bilaterally. Other: Slightly prominent heterogeneous prostate protruding into base of bladder, prostate size: 5.8 x 5.5 x 5.2 cm IMPRESSION: 1. Nonobstructing left nephrolithiasis. 2. Prominent prostate protruding into base of bladder. Electronically authenticated by: SOWMYA FLORES Date: 2021-10-25 17:34 [facility] XR KUB 1 VIEWon 10-25-2021 XR KUB 1 VIEW EXAMINATION: XR KUB 1 VIEW HISTORY: H/O: urinary stone ; chronic low back pain COMPARISON: No relevant comparison available. FINDINGS: KIDNEY/URETER - RIGHT: No visible renal or ureteral calcifications. KIDNEY/URETER - LEFT: 5 mm stone in a couple tiny calcifications project over left kidney. PELVIS: 13 x 6 mm calcification within lower right pelvis near the course of right ureter of uncertain etiology. BOWEL: No abnormal dilation or deviation. BONES: Marked degenerative disc disease of lower lumbar spine. OTHER: Negative. No abnormal gaseous collections. IMPRESSION: 1. Right pelvic 13 x 6 mm calcification of uncertain etiology; this is larger than would be expected within the distal ureter and today's ultrasound study showed no hydronephrosis or evidence of ureteral obstruction. This likely represents calcification within the bowel or pelvic granuloma. Consider CT imaging of the abdomen and pelvis for further evaluation if clinically indicated. 2. Left nephrolithiasis. 3. 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 Electronically authenticated by: SOWMYA FLORES Date: 2021-10-25 17:39 [facility] Creatinine (Bld) [Mass/Vol]O rdered By: Melanie Lopes on 10-24-2021 Creatinine [Mass/Vol] 0.7 mg/dL 0.6-1.3 [facility] Comment on above: ER/ESD physician is notified/shown all ISTAT results. Critical values may be confirmed by laboratory testing if deemed necessary by ER attending doctor. ER/ESD physician is notified/shown all ISTAT results.Critical values may be confirmed by laboratory testing ifdeemed necessary by ER attending doctor. No Panel InformationOrdered By: Melanie Lopes on 10-24-2021 POC Estimated GFR > 60 [facility] Comment on above: GFR estimated refere nce range: According to KDOQI guidelines, <60 ml/min/1.73m2 is sufficient to diagnose a patient with chronic kidney disease. POC Estimated GFR Non- Amer > 60 [facility] No Panel InformationOrdered By: Melanie Lopes on 09-28-2021 Prostate Specific Antigen Total 5.150 ng/mL 0.000-4.000 [facility] Serum or plasma free prostat e specific antigen (PSA)/total PSA ratioOrdered By: Melanie Lopes on 09-28-2021 Free PSA/Total PSA [Mass fraction] 13.0 % [facility] Comment on above: Based on the work of Brinda et al.SKINNY. 27919):1542:47.1998 the percent free PSA may be used to determine the relative risk of prostate cancer in individual men.The percent probability of prostate cancer by patient age for men with non-suspicious PACO results and total PSa between 4 and 10 ng/ml is as follows: % Free PSA 50 - 64 yrs. 65 - 75 yrs. 0 - 10 56% 55% 10 - 15 24% 35% 15 - 20 17% 23% 20 - 25 10% 20% >25 5% 9% Serum or plasma free prostat e specific antigen measurement (mass/volume)Ordered By: Melanie Lopes on 09-28-2021 Free PSA [Mass/Vol] 0.680 ng/mL [facility] XR Knee - bilateral 4 Viewso n 12-04-2019 IMPRESSION: Mild to moderate left medial compartment osteoarthritis. Severe right lateral compartment osteoarthritis. Pollution Control Chemist: LEROY Transcribe Date/Time: Dec 04 2019 10:02A Dictated by : DEYVI ANNE MD This examination was interpreted and the report reviewed and electronically signed by: DEYVI ANNE MD on Dec 04 2019 10:03AM [facility] DIVISION OF RADIOLOGY * * *Final Report* * * DATE OF EXAM: Dec 04 2019 9:30AM [facility] 5618 - XR KNEE 4V AP/PA/LAT/MERCH EZE / PROCEDURE REASON: Primary osteoarthritis of both knees * * * * Physician Interpretation * * * * EXAMINATION: XR KNEE 4V AP/PA/LAT/MERCH EZE HISTORY: Follow up for chronic bilateral knee pain. No trauma Primary osteoarthritis of both knees . TECHNIQUE: XR KNEE 4V AP/PA/LAT/MERCH EZE Laterality: BILATERAL Number of different views (projections): 4 M: XB_1 COMPARISON: 11/25/2018 RESULT: Mild to moderate left medial compartment narrowing with minimal patellofemoral compartment degenerative change and maintained left lateral compartment. No left knee joint effusion. Severe narrowing in the right lateral compartment with mild right medial and patellofemoral compartment degenerative change. No significant right knee joint effusion. Intra-articular bodies of the right knee. No acute fracture or dislocation. There are no eliel erosions. DIVISION OF RADIOLOGY Provider, Darcy vang [place] - 12/04/2019 * * *Final Report* * * DATE OF EXAM: Dec 04 2019 9:30AM [facility] [id number] - XR KNEE 4V AP/PA/LAT/MERCH EZE / PROCEDURE REASON: Primary osteoarthritis of both knees * * * * Physician Interpretation * * * * EXAMINATION: XR KNEE 4V AP/PA/LAT/MERCH EZE HISTORY: Follow up for chronic bilateral knee pain. No trauma Primary osteoarthritis of both knees . TECHNIQUE: XR KNEE 4V AP/PA/LAT/MERCH EZE Laterality: BILATERAL Number of different views (projections): 4 M: XB_1 COMPARISON: 11/25/2018 RESULT: Mild to moderate left medial compartment narrowing with minimal patellofemoral compartment degenerative change and maintained left lateral compartment. No left knee joint effusion. Severe narrowing in the right lateral compartment with mild right medial and patellofemoral compartment degenerative change. No significant right knee joint effusion. Intra-articular bodies of the right knee. No acute fracture or dislocation. There are no eliel erosions. IMPRESSION IMPRESSION: Mild to moderate left medial compartment osteoarthritis. Severe right lateral compartment osteoarthritis. Pollution Control Chemist: PSCB Transcribe Date/Time: Dec 04 2019 10:02A Dictated by : DEYVI ANNE MD This examination was interpreted and the report reviewed and electronically signed by: DEYVI ANNE MD on Dec 04 2019 10:03AM EST [facility] Radiology Study observation (narrative) [facility] XR Knee - bilateral 4 ViewsO rdered By: Ccf Provider on 12-04-2019 [facility] Vital Signs Date Time Vital Sign Value Performing Clinician Facility 01-21-2024 13:59-0400 Body height 170.18 cm [facility] 01-21-2024 13:59-0400 Body mass index (BMI) [Ratio] 33.2 kg/m2 [facility] 01-21-2024 13:59-0400 Body weight 96.16 kg [facility] 01-21-2024 13:59-0400 Diastolic blood pressure 82 mm[Hg] [facility] 01-21-2024 13:59-0400 Heart rate 80 /min [facility] 01-21-2024 13:59-0400 Respiratory rate 16 /min [facility] 01-21-2024 13:59-0400 SaO2% (BldA) [Mass fraction] 95 % [facility] 01-21-2024 13:59-0400 Systolic blood pressure 118 mm[Hg] [facility] 12-04-2023 10:03-0400 Blood Pressure Location Melanie Lue [facility] 12-04-2023 10:03-0400 Diastolic blood pressure 84 mm[Hg] Melanie Lue [facility] 12-04-2023 10:03-0400 Heart rate 74 /min Melanie Lue [facility] 12-04-2023 10:03-0400 Respiratory rate 16 /min Melanie Lue [facility] 12-04-2023 10:03-0400 Systolic blood pressure 121 mm[Hg] Melanie Lue [facility] 07-10-2023 10:39-0400 Body height 170.18 cm DO Mario Hyman Work Phone: [facility] 07-10-2023 10:39-0400 Body mass index (BMI) [Ratio] 34.1 kg/m2 DO Mario Hyman Work Phone: [facility] 07-10-2023 10:39-0400 Body weight 98.88 kg DO Mario Hyman Work Phone: [facility] 07-10-2023 10:39-0400 Diastolic blood pressure 70 mm[Hg] DO Mario Hyman Work Phone: [facility] 07-10-2023 10:39-0400 Heart rate 69 /min DO Mario Hyman Work Phone: [facility] 07-10-2023 10:39-0400 Respiratory rate 18 /min DO Mario Hyman Work Phone: [facility] 07-10-2023 10:39-0400 SaO2% (BldA) [Mass fraction] 94 % DO Mario Hyman Work Phone: [facility] 07-10-2023 10:39-0400 Systolic blood pressure 114 mm[Hg] DO Mario Hyman Work Phone: [facility] 12-20-2022 16:00-0400 Body height 175.26 cm Mario Hyman Other [facility] Other 12-20-2022 16:00-0400 Body mass index (BMI) [Ratio] 32.48 kg/m2 Mario Hyman Other [facility] Other 12-20-2022 16:00-0400 Body weight 99.79 kg Mario Hyman Other [facility] Other 12-20-2022 16:00-0400 Diastolic blood pressure 64 mm[Hg] Mario Yenni Other [facility] Other 12-20-2022 16:00-0400 Respiratory rate 16 /min Mario Hyman Other [facility] Other 12-20-2022 16:00-0400 SaO2% (BldA) [Mass fraction] 95 % Mario Hyman Other [facility] Other 12-20-2022 16:00-0400 Systolic blood pressure 124 mm[Hg] Mario Hyman Other [facility] Other 11-28-2022 07:49-0400 Blood Pressure Location Melanie Lue [facility] 11-28-2022 07:49-0400 Diastolic blood pressure 84 mm[Hg] Melanie Lue [facility] 11-28-2022 07:49-0400 Heart rate 70 /min Melanie Lue [facility] 11-28-2022 07:49-0400 Respiratory rate 16 /min Melanie Lue [facility] 11-28-2022 07:49-0400 Systolic blood pressure 130 mm[Hg] Melanie Lue [facility] 11-05-2022 07:28-0400 Body height 170.18 cm DO Mario Hyman Work Phone: [facility] 11-05-2022 07:28-0400 Body weight 226 kg DO Mario Hyman Work Phone: [facility] 10-03-2022 07:55-0400 Blood Pressure Location Melanie Lue [facility] 10-03-2022 07:55-0400 Diastolic blood pressure 79 mm[Hg] Melanie Lue [facility] 10-03-2022 07:55-0400 Heart rate 81 /min Melanie Lue [facility] 10-03-2022 07:55-0400 Respiratory rate 16 /min Melanie Lue [facility] 10-03-2022 07:55-0400 Systolic blood pressure 125 mm[Hg] Melanie Lue [facility] 09-21-2022 07:45-0400 Body height 175.26 cm Mario Hyman Other [facility] Other 09-21-2022 07:45-0400 Body mass index (BMI) [Ratio] 33.52 kg/m2 Mario Hyman Other [facility] Other 09-21-2022 07:45-0400 Body weight 102.97 kg Mario Hyman Other [facility] Other 09-21-2022 07:45-0400 Diastolic blood pressure 84 mm[Hg] Mario Hyman Other [facility] Other 09-21-2022 07:45-0400 Respiratory rate 16 /min Mario Hyman Other [facility] Other 09-21-2022 07:45-0400 SaO2% (BldA) [Mass fraction] 96 % Mario Hyman Other [facility] Other 09-21-2022 07:45-0400 Systolic blood pressure 134 mm[Hg] Mario Hyman Other [facility] Other 07-12-2022 07:49-0400 Blood Pressure Location Melanie Lue [facility] 07-12-2022 07:49-0400 Diastolic blood pressure 84 mm[Hg] Melanie Lue [facility] 07-12-2022 07:49-0400 Heart rate 75 /min Melanie Lue [facility] 07-12-2022 07:49-0400 Respiratory rate 16 /min Melanie Lue [facility] 07-12-2022 07:49-0400 Systolic blood pressure 127 mm[Hg] Melanie Lue [facility] 06-25-2022 15:01-0400 Blood Pressure Location Melanie Lue [facility] 06-25-2022 15:01-0400 Diastolic blood pressure 76 mm[Hg] Melanie Lue [facility] 06-25-2022 15:01-0400 Heart rate 77 /min Melanie Lue [facility] 06-25-2022 15:01-0400 Respiratory rate 16 /min Melanie Lue [facility] 06-25-2022 15:01-0400 Systolic blood pressure 135 mm[Hg] Melanie Lue [facility] 06-18-2022 09:00-0400 Body height 175.26 cm Mario Hyman Other [facility] Other 06-18-2022 09:00-0400 Body mass index (BMI) [Ratio] 35.29 kg/m2 Mario Hyman Other [facility] Other 06-18-2022 09:00-0400 Body weight 108.41 kg Mario Hyman Other [facility] Other 06-18-2022 09:00-0400 Diastolic blood pressure 76 mm[Hg] Mario Yenni Other [facility] Other 06-18-2022 09:00-0400 Respiratory rate 16 /min Mario Yenni Other [facility] Other 06-18-2022 09:00-0400 SaO2% (BldA) [Mass fraction] 96 % Mario Yenni Other [facility] Other 06-18-2022 09:00-0400 Systolic blood pressure 120 mm[Hg] Mario Hyman Other [facility] Other 05-09-2022 08:32-0500 Blood Pressure Location Melanie Lue [facility] 05-09-2022 08:32-0500 Diastolic blood pressure 79 mm[Hg] Melanie Lue [facility] 05-09-2022 08:32-0500 Heart rate 68 /min Melanie Lue [facility] 05-09-2022 08:32-0500 Respiratory rate 16 /min Melanie Lue [facility] 05-09-2022 08:32-0500 Systolic blood pressure 138 mm[Hg] Melanie Lue [facility] 11-03-2021 09:15-0400 Body height 175.26 cm aMrio Hyman Other [facility] Other 11-03-2021 09:15-0400 Body mass index (BMI) [Ratio] 35.38 kg/m2 Mario Hyman Other [facility] Other 11-03-2021 09:15-0400 Body weight 108.68 kg Mario Jackynorah Other [facility] Other 11-03-2021 09:15-0400 Diastolic blood pressure 78 mm[Hg] Mario Hyman Other [facility] Other 11-03-2021 09:15-0400 Respiratory rate 16 /min Mario Hyman Other [facility] Other 11-03-2021 09:15-0400 SaO2% (BldA) [Mass fraction] 95 % Mario Hyman Other [facility] Other 11-03-2021 09:15-0400 Systolic blood pressure 138 mm[Hg] Mario Hyman Other [facility] Other 11-01-2021 09:58-0400 Blood Pressure Location Melanie Lue [facility] 11-01-2021 09:58-0400 Diastolic blood pressure 95 mm[Hg] Melanie Lue [facility] 11-01-2021 09:58-0400 Heart rate 74 /min [facility] 11-01-2021 09:58-0400 Respiratory rate 16 /min [facility] 11-01-2021 09:58-0400 Systolic blood pressure 149 mm[Hg] [facility] 09-20-2021 09:28-0400 Blood Pressure Location Melanie Lue [facility] 09-20-2021 09:28-0400 Diastolic blood pressure 89 mm[Hg] [facility] 09-20-2021 09:28-0400 Heart rate 79 /min [facility] 09-20-2021 09:28-0400 Systolic blood pressure 137 mm[Hg] [facility] 09-01-2021 08:43-0400 Diastolic blood pressure 84 mm[Hg] DO Mario Kuns Work Phone: [facility] 09-01-2021 08:43-0400 Heart rate 68 /min DO Mario Kuns Work Phone: [facility] 09-01-2021 08:43-0400 Respiratory rate 20 /min DO Mario Kuns Work Phone: [facility] 09-01-2021 08:43-0400 Systolic blood pressure 139 mm[Hg] DO Mario Kuns Work Phone: [facility] 09-01-2021 08:30-0400 SaO2% (BldA) [Mass fraction] 96 % DO Mario Hyman Work Phone: [facility] 09-01-2021 06:28-0400 Body height 170.18 cm DO Mario Hyman Work Phone: [facility] 09-01-2021 06:28-0400 Body mass index (BMI) [Ratio] 36 kg/m2 DO Mario Hyman Work Phone: [facility] 09-01-2021 06:28-0400 Body temperature 98.4 [degF] DO Mario Hyman Work Phone: [facility] 09-01-2021 06:28-0400 Body weight 104.32 kg DO Mario Hyman Work Phone: [facility] Encounters Encounter Date Encounter Type Care Provider Facility Start: 02-05-2024 ambulatory Melanie Lopes Facility:[facility] Start: 01-21-2024 End: 01-21-2024 ambulatory [facility] Work Phone: Start: 01-21-2024 End: 01-21-2024 Patient encounter procedure [facility] [place] Work Phone: Start: 12-04-2023 End: 12-04-2023 ambulatory Melanie Lopes Facility:[facility] Start: 12-04-2023 End: 12-04-2023 Patient encounter procedure Melanie Lopes [facility] Start: 11-27-2023 Non-patient / Non-visit [facility] Work Phone: Start: 07-10-2023 End: 07-10-2023 ambulatory Mario Hyman Facility:[facility] Start: 07-10-2023 Encounter for other preprocedural examination Mario Hyman [facility] Start: 07-10-2023 Patient encounter status DO Yomi Hyman Work Phone: [facility] Start: 07-10-2023 End: 07-10-2023 ambulatory DO Mario Hyman Work Phone: [facility] Work Phone: Start: 07-10-2023 End: 07-10-2023 Patient encounter procedure DO Mario Hyman Work Phone: [facility] [place] Work Phone: Start: 07-10-2023 End: 07-10-2023 ambulatory Mario Hyman Facility:[facility] Start: 07-10-2023 End: 07-10-2023 ambulatory DO Mario Riconorah Work Phone: [facility] Work Phone: Start: 07-10-2023 End: 07-10-2023 Patient encounter procedure DO Mario Hyman Work Phone: [facility] [place] Work Phone: Start: 01-14-2023 ambulatory Mario Hyman Facility:[facility] Start: 12-20-2022 End: 12-20-2022 Departed Referred DO Mariopriscilla Hyman Work Phone: [facility] [place] Work Phone: Start: 12-20-2022 End: 12-20-2022 ambulatory DO Mario Hyman Work Phone: [facility] Other Start: 12-20-2022 Office outpatient vi sit 15 minutes Mario Hyman [facility] [place] Start: 12-19-2022 ambulatory Melanie Lopes Facility:[facility] Start: 11-28-2022 End: 11-28-2022 Patient encounter procedure [facility] Start: 11-14-2022 End: 11-14-2022 ambulatory Mario Hyman Other [facility] Other Start: 11-14-2022 Telephone encounter Mario Hyman [facility] Start: 11-05-2022 End: 11-05-2022 ambulatory Melanie Lopes Facility:[facility] Start: 11-05-2022 End: 11-05-2022 Patient encounter procedure DO Mario Hyman Work Phone: [facility] [place] Work Phone: Start: 10-03-2022 End: 10-03-2022 Patient encounter procedure Melanie Lopes [facility] Start: 09-21-2022 End: 09-21-2022 ambulatory Mario Hyman Other [facility] Other Start: 09-21-2022 Office outpatient vi sit 25 minutes Mario Hyman [facility] Start: 09-18-2022 End: 09-18-2022 ambulatory Mario Hyman Facility:[facility] Start: 09-18-2022 End: 09-18-2022 ambulatory DO Mario Hyman Work Phone: [facility] Work Phone: Start: 09-18-2022 End: 09-18-2022 Patient encounter procedure DO Mario Hyman Work Phone: [facility] [place] Work Phone: Start: 08-20-2022 ambulatory MELANIE LOPES . Facility: Start: 07-12-2022 End: 07-12-2022 Patient encounter procedure Melanie Lopes [facility] [place] Start: 07-10-2022 End: 07-10-[address] MARIO HYMAN Facility:H1 Start: 07-06-2022 Encounter for preprocedural cardiovascular examination MELANIE LOPES . [facility] Start: 07-06-2022 Encounter for preprocedural laboratory examination MELANIE LOPES . [facility] Start: 07-05-2022 End: 07-05-[address] MARIO HYMAN Facility:H1 Start: 07-04-2022 End: 07-04-2022 ambulatory MELANIE LOPES . Facility:H1 Start: 07-02-2022 End: 07-03-2022 ambulatory MELANIE LOPES . Facility:H1 Start: 07-02-2022 End: 07-03-2022 Encounter for preprocedural cardiovascular examination MELANIE LOPES . Facility:H1 Start: 06-25-2022 End: 06-25-2022 Patient encounter procedure Melanie Lopes [facility] Start: 06-18-2022 End: 06-18-2022 ambulatory Mario Hyman Other [facility] [place] Other Start: 06-18-2022 Office outpatient vi sit 25 minutes Mario Hyman [facility] [place] Start: 06-11-2022 End: 06-11-2022 ambulatory DO Mario Hyman Work Phone: [facility] Work Phone: Start: 06-11-2022 End: 06-11-2022 Patient encounter procedure DO Mario Hyman Work Phone: [facility] [place] Work Phone: Start: 06-01-[address] Mario Hyman Facility:[id number] Start: 06-01-2022 End: 06-01-2022 ambulatory DO Mario Hyman Work Phone: [facility] Work Phone: Start: 06-01-2022 End: 06-01-2022 Patient encounter procedure DO Mario Hyman Work Phone: [facility]-Electrodiagnostics Work Phone: Start: 06-01-[address] Mario Hyman Facility:[id number] Start: 05-17-2022 End: 05-17-2022 ambulatory DO Mario Hyman [facility] Phone[facility] Work Phone: Start: 05-17-2022 End: 05-17-2022 Patient encounter procedure DO Mario Hyman Work Phone: [facility]-CT Scan [facility] [place] Work Phone: Start: 05-09-2022 End: 05-09-2022 ambulatory Mario Hyman Other [facility] [place] Other Start: 05-09-2022 Telephone encounter Mario Hyman [facility] [place] Start: 05-09-2022 End: 05-09-2022 Patient encounter procedure Melanie Lopes [facility] Start: 04-27-2022 End: 04-27-2022 Patient encounter procedure DO Mario Hyman Work Phone: [facility] [place] Work Phone: Start: 12-28-[address] Mario Hyman Facility:[facility] Start: 12-27-[address] Mario Hyman Facility:[id number] Start: 12-27-2021 End: 12-27-2021 ambulatory DO aMrio Hyman Work Phone: [facility] Work Phone: Start: 12-27-2021 End: 12-27-2021 Patient encounter procedure DO Mario Hyman Work Phone: [facility] [place] Start: 12-13-2021 End: 12-13-2021 Patient encounter procedure Melanie Lopes [facility] Start: 12-06-2021 End: 12-06-2021 Patient encounter procedure DO Mario Jackynorah Work Phone: [facility] [place] Start: 12-01-2021 End: 12-01-2021 Patient encounter procedure DO Mario Jackynorah Work Phone: [facility] [place] Start: 11-27-2021 End: 11-27-2021 Patient encounter procedure DO Mario Hyman Work Phone: [facility] Start: 11-15-2021 End: 11-15-2021 ambulatory Mario Hyman Other [facility] Other Start: 11-15-2021 Telephone encounter Mario Hyman [facility] [place] Start: 11-03-2021 End: 11-03-2021 ambulatory Mario Hyman Other [facility] Other Start: 11-03-2021 End: 11-03-2021 Patient encounter procedure Mario Hyman [facility] [place] Start: 11-01-2021 End: 11-01-2021 Patient encounter procedure Melanie Lopes [facility] Start: 10-25-2021 End: 10-26-2021 ambulatory MELANIE LOPES . Facility: Start: 10-24-2021 End: 10-24-2021 Patient encounter procedure DO Mario Hyman Work Phone: [facility] [place] Start: 09-28-2021 End: 09-28-2021 Patient encounter procedure DO Mario Hyman Work Phone: [facility] [place] Start: 09-20-2021 End: 09-20-2021 Patient encounter procedure Melanie Lopes [facility] Start: 09-01-2021 End: 09-01-2021 Admission to same day surgery center DO Mario Hyman Work Phone: [facility] Start: 08-21-2021 End: 08-21-2021 ambulatory Mario Hyman Other [facility] Other Start: 08-21-2021 Telephone encounter Mariopriscilla Hyman [facility] Start: 08-18-2021 End: 08-18-2021 ambulatory Mario Hyman Other [facility] Other Start: 08-18-2021 Telephone encounter Mariopriscilla Riconorah [facility] Start: 08-15-2021 End: 08-15-2021 ambulatory Luis M Gramajo Other [facility] Other Start: 08-15-2021 Telephone encounter Luis M Gramajo [facility] Gastroenterology Start: 12-04-2019 End: 12-04-2019 Subsequent hospital visit by physician Sho Daniel Work Phone: Radiology Comment on above: Primary osteoarthrit is of both knees [M17.0] Procedures Date Procedure Procedure Detail Performing Clinician Start: 10-15-2023 Proton therapy Melanie stern Start: 11-21-2022 Ultrasonography guid ed transperineal needle biopsy of prostate Melanie Lopes Start: 11-05-2022 MR prostate wo/w con DO Mario Hyman Work Phone: Start: 11-05-2022 MRI of prostate Melanie L ue Start: 07-12-2022 Cystoscopy Melanie Lue Start: 07-04-2022 Lithotripsy Melanie Lue Start: 05-17-2022 CT of abdomen and pe lvis without contrast DO Mario Hyman Work Phone: Start: 12-27-2021 CT of chest without contrast DO Mario [facility] Work Phone: Start: 12-01-2021 Plain chest X-ray DO Yomi Hyman Work Phone: Start: 10-24-2021 MR prostate wo/w con DO Mario Hyman Work Phone: Start: 10-24-2021 MRI of prostate Melanie L ue Comment on above: NEG Start: 09-01-2021 Diagnostic endoscopi c examination on colon DO Mario Hyman Work Phone: Start: 12-04-2019 Radiologic exam knee complete 4/more views Kaela PINEDA-C Work Phone: Appendectomy Melanie Lue Arthroplasty of knee Melanie L ue Screening for malign ant neoplasm of colon Luis M Gramajo Other Screening for malign ant neoplasm of prostate Luis M Gramajo Other Tonsillectomy Melanie Lue Plan of Treatment Date Care Activity Detail Author Start: 2025 RSV Vaccine (1 - 1-dose 75+ series) RSV Vaccine (1 - 1-dose 75+ series) [facility] Start: 12-01-2023 Covid-19 Vaccine ( season) Covid-19 Vaccine ( season) [facility] Start: 12-01-2023 Influenza vaccination Influenza Vaccine (#1) [facility] Start: 07-10-2023 EKG 12 channel panel [facility] Start: 04-01-2023 Advance Directive Discussion Advance Directive Discussion [facility] Start: 12-01-2021 Plain chest X-ray XR chest 2V* [facility] Start: 12-01-2021 End: 12-01-2021 Patient encounter procedure Departed [facility] [place] Start: 11-27-2021 End: 11-27-2021 Patient encounter procedure Departed [facility]Res[facility] Therapy Start: 11-03-2021 End: 11-03-2021 Patient encounter procedure Departed [facility] [place] Start: 09-01-2021 [facility] Work Phone: Start: 08-29-2021 Diabetes Screening Diabetes Screening [facility] Start: 2015 Pneumococcal Vaccine: 65+ (1 of 1 - PCV) Pneumococcal Vaccine: 65+ (1 of 1 - PCV) [facility] Start: 2000 Shingrix Vaccine (1 of 2) Shingrix Vaccine (1 of 2) [facility] Start: 1995 Screening for malignant neoplasm of colon [facility] Start: 1985 Lipid panel Lipid Screening [facility] Start: 1969 Urine microalbumin profile DTaP,Tdap,Td Vaccine (1 - Tdap) [facility] Start: 1968 Anxiety Screening Anxiety Screening [facility] Start: 1968 Depression Screening Depression Screening [facility] Start: 1968 Hepatitis C screening Hepatitis C Screening [facility] Albumin/Globulin ratio [facility] Anion gap measurement [facility] Basophils [#/volume] in Blood by Automated count [facility] Basophils/100 leukoc ytes in Blood by Automated count [facility] Calculated LDL cholesterol level [facility] Cholesterol.total/Ch oles terol in HDL [Mass Ratio] in Serum or Plasma [facility] Eosinophils/100 leukocytes in Blood by Automated count [facility] Erythrocyte distribu tion width [Ratio] by Automated count [facility] Erythrocytes [#/volu me] in Blood [facility] Globulin [Mass/volum e] in Serum [facility] Glucose measurement estimated from glycated hemoglobin [facility] Glucose measurement estimated from glycated hemoglobin [facility] Hematocrit [Volume Fraction] of Blood [facility] Hemoglobin [Mass/vol ume] in Blood [facility] Hemoglobin A1c/Hemoglobin.total in Blood [facility] Leukocytes [#/volume ] corrected for nucleated erythrocytes in Blood by Automated coun [facility] Leukocytes [#/volume ] in Blood [facility] Lymphocytes [#/volum e] in Blood by Automated count [facility] Lymphocytes/100 leukocytes in Blood by Automated count [facility] MCH [Entitic mass] b y Automated count [facility] MCHC [Mass/volume] b y Automated count [facility] MCV [Entitic volume] by Automated count [facility] Monocytes [#/volume] in Blood by Automated count [facility] Monocytes/100 leukoc ytes in Blood by Automated count [facility] Neutrophils [#/volum e] in Blood by Automated count [facility] Neutrophils/100 leukocytes in Blood by Automated count [facility] Nucleated erythrocyt es [Presence] in Blood by Automated count [facility] Platelet mean volume [Entitic volume] in Blood by Automated count [facility] Platelets [#/volume] in Blood [facility] VLDL cholesterol measurement [facility] Immunizations Immunization Date Immunization Notes Care Provider Jacobo carrillo 05-31-2016 pneumococcal conjuga te vaccine, 13 valent Luis M Gramajo Other [facility] 04-01-2014 pneumococcal polysaccharide vaccine, 23 valent Melanie Lopes [facility] 04-01-2004 influenza virus vaccine, unspecified formulation Melanie Lopes [facility] NEGATED: Highlighted row has not occurred!12-13-2021 SARS-CoV-2 mRNA (tozinameran 5y-11y) vaccine Melanie Lopes [facility] NEGATED: Highlighted row has not occurred!09-20-2021 SARS-CoV-2 mRNA (tozinameran 5y-11y) vaccine Melanie Lopes [facility] Payers Date Payer Category Payer Private Health Insurance [facility] INDEMNITY [id number] 2018-Present [phone] [address] [place] [address] Indemnity [id number] 2013 Medicare MEDICARE MEDICAR E A AND B [id number] 2013-Present [phone] [address] [address] [place] [address] Medicare [id number] 1959 Medicare [id number] 1959 Private Health Insurance [id number] 1959 Self-pay [id number] 1950 Unknown [id number] 2.16.840.1.406048.3.579. 2.356 1950 Unknown [id number] 2.16.840.1.639297.3.579. 2.356 1950 Unknown [id number] 2.16.840.1.716940.3.579. 2.356 1950 Unknown [id number] 2.16.840.1.018576.3.579. 2.593 1950 Unknown [id number] 2.16.840.1.422584.3.579. 2.593 1950 Unknown [id number] 2.16.840.1.384189.3.579. 2.593 1950 Unknown [id number] 2.16.840.1.217987.3.579. 2.593 1950 Unknown [id number] 2.16.840.1.987595.3.579. 2.593 1950 Unknown [id number] 2.16.840.1.770562.3.579. 2.593 1950 Unknown [id number] 2.16.840.1.419936.3.579. 2.727 1950 Unknown [id number] 2.16.840.1.923016.3.579. 2.727 Medicare [id number] Unknown [id number] 2.16.840.1.080806.3.579. 2.531 Unknown [id number] 2.16.840.1.383341.3.579. 2.531 Unknown [id number] 2.16.840.1.246951.3.579. 2.531 Unknown [id number] 2.16.840.1.469036.3.579. 2.531 Unknown [id number] 2.16.840.1.008584.3.579. 2.531 Unknown [id number] 2.16.840.1.326755.3.579. 2.531 Social History Date Type Detail Facility Start: 09-20-2021 End: 01-14-2023 Tobacco smoking status Never smoked tobacco (finding) [facility] Other Tobacco smoking status Never [facility] Sex Assigned At Male [facility] Other Start: 1950 Sex Assigned At Male [facility] Tobacco smoking status MAIS Tobacco smoking consumption unknown [facility] Start: 1950 Sex assigned at Not on file [facility] Start: 11-03-2019 End: 12-03-2019 Exposure to SARS-CoV-2 (event) Unable to assess [facility] Functional Status Date Assessment Result Facility 12-04-2023 Functional Status N/A [facility] 11-28-2022 Functional Status N/A [facility] 10-03-2022 Functional Status N/A [facility] 07-12-2022 Functional Status N/A [facility] [place] 06-25-2022 Functional Status N/A [facility] [place] 05-09-2022 Functional Status N/A [facility] 12-13-2021 Functional Status N/A [facility] 11-01-2021 Functional Status N/A [facility] 09-20-2021 Functional Status N/A [facility] Clinical Notes 12-21-2014 to 12-04-2023 Note Date & Type Note Facility 12-04-2023 Hospital Discharg e instructions Patient Education 12/04/2023 10:39:51 Laser Therapy for Kidney Stones, Care After Laser Therapy for Kidney Stones, Care After After laser therapy for kidney stones, it is common to have: Pain. A burning feeling when you pee (urinate). Small amounts of blood in your pee (urine). A need to pee a lot. Parts of the kidney stone in your pee. Mild discomfort in your back when you pee. You may have this if you had a small mesh tube (stent) placed during the procedure. Follow these instructions at home: Medicines Take iozr-lfw-imlcazm and prescription medicines only as told by your health care provider. If you were prescribed antibiotics, take them as told by your provider. Do not stop using the antibiotic even if you start to feel better. Ask your provider if the medicine prescribed to you: ?Requires you to avoid driving or using machinery. ?Can cause constipation. You may need to take these actions to prevent or treat constipation: ?Drink enough fluid to keep your pee pale yellow. ?Take ahbc-bmx-wvehbym or prescription medicines. ?Eat foods that are high in fiber, such as beans, whole grains, and fresh fruits and vegetables. ?Limit foods that are high in fat and processed sugars, such as fried or sweet foods. Activity If you were given a sedative during the procedure, it can affect you for several hours. Do not drive or operate machinery until your provider says that it is safe. Return to your normal activities as told by your provider. Ask your provider what activities are safe for you. General instructions Your provider may recommend that you drink a lot of water for a few hours after your procedure. If you have heart or kidney disease, ask your provider how much you should drink. You may be asked to strain your pee to collect any stone pieces that you pass. Your provider may have these pieces tested. Do not take baths, swim, or use a hot tub until your provider approves. Ask your provider if you may take warm baths to soothe the burning. Keep all follow-up visits. If you have a stent, you will need to go back to your provider to have it removed. Your provider may give you more instructions. Make sure you know what you can and cannot do. Contact a health care provider if: You have pain or a burning feeling that lasts for more than 2 days. You feel nauseous. You vomit more and more often. You have trouble peeing. You have pain that gets worse or does not get better with medicine. You have a fever or shaking chills. Get help right away if: You cannot pee, even when your bladder feels full. You faint. You have chest pain, shortness of breath, or cough up blood. You have: ?Bright red blood or blood clots in your pee. ?Severe pain or discomfort. ?Pain in your abdomen. ?Swelling in your legs. These symptoms may be an emergency. Get help right away. Call 911. Do not wait to see if the symptoms will go away. Do not drive yourself to the hospital. This information is not intended to replace advice given to you by your health care provider. Make sure you discuss any questions you have with your health care provider. Document Revised: 11/16/2022 Document Reviewed: 11/16/2022 [employer] Patient Education 2023 [employer]. 12/04/2023 10:39:50 Laser Therapy for Kidney Stones Laser Therapy for Kidney Stones Laser therapy for kidney stones is a procedure to break up rock-like masses that form inside the kidneys (kidney stones). It is done using a device that beams a strong light (laser) on the kidney stones. This breaks the stones up into small pieces. These small pieces may leave your body when you pee (urinate) or may be taken out during the procedure. You may need laser therapy if you have kidney stones that are painful or that are stopping you from being able to pee. Tell a health care provider about: Any allergies you have. All medicines you are taking, including vitamins, herbs, eye drops, creams, and mpky-wwm-ugpnedh medicines. Any problems you or family members have had with anesthesia. Any bleeding problems you have. Any surgeries you have had. Any medical conditions you have. Whether you are or may be . What are the risks? Your health care provider will talk with you about risks. These may include: Infection. Bleeding. Allergic reactions to medicines. Damage to: ?The part of your body that drains pee (urine) from the bladder (urethra). ?The bladder. ?The tube that connects the bladder to the kidneys (ureter). Urinary tract infection (UTI). Urethral stricture. This is when the urethra is narrowed by scarring. Trouble peeing. Blockage of the kidney. This may be caused by a piece of kidney stone. What happens before the procedure? When to stop eating and drinking Follow instructions from your provider about what you may eat and drink. These may include: 8 hours before the procedure ?Stop eating most foods. Do not eat meat, fried foods, or fatty foods. ?Eat only light foods, such as toast or crackers. ?All liquids are okay except energy drinks and alcohol. 6 hours before the procedure ?Stop eating. ?Drink only clear liquids, such as water, clear fruit juice, black coffee, plain tea, and sports drinks. ?Do not drink energy drinks or alcohol. 2 hours before the procedure ?Stop drinking all liquids. ?You may be allowed to take medicines with small sips of water. If you do not follow your provider's instructions, your procedure may be delayed or canceled. Medicines Ask your provider about: ?Changing or stopping your regular medicines. These include any diabetes medicines or blood thinners you take. ?Taking medicines such as aspirin and ibuprofen. These medicines can thin your blood. Do not take them unless your provider tells you to. ?Taking pbmc-xcl-ggqlwpb medicines, vitamins, herbs, and supplements. Tests You may have a physical exam before the procedure. You may also have tests done. These may include: ?Imaging tests. ?Blood or pee tests. Surgery safety Ask your provider: ?How your surgery site will be marked. ?What steps will be taken to help prevent infection. These steps may include: ?Removing hair at the surgery site. ?Washing skin with a soap that kills germs. ?Taking antibiotics. General instructions Do not use any products that contain nicotine or tobacco for at least 4 weeks before the procedure. These products include cigarettes, chewing tobacco, and vaping devices, such as e-cigarettes. If you need help quitting, ask your provider. If you will be going home right after the procedure, plan to have a responsible adult: ?Take you home from the hospital or clinic. You will not be allowed to drive. ?Care for you for the time you are told. What happens during the procedure? An IV will be inserted into one of your veins. You will be given: ?A sedative. This helps you relax. ?Anesthesia. This keeps you from feeling pain. It will make you fall asleep for surgery. A tool with a camera on the end (ureteroscope) will be put into your urethra. It will be moved through your bladder to your kidney. It will send pictures to a screen in the operating room. This will show what parts of your kidney need to be treated. A tube will be put through the ureteroscope. It will be moved into your kidney. The laser device will be put into your kidney through the tube. The laser will be used to break up the kidney stones. A tool with a tiny wire basket may be put through the tube into your kidney. This can help remove the small pieces of the kidney stone. A small mesh tube (stent) may be placed to allow your kidney to drain. The tube and ureteroscope will be taken out at the end of the surgery. The procedure may vary among providers and hospitals. What happens after the procedure? Your blood pressure, heart rate, breathing rate, and blood oxygen level will be monitored until you leave the hospital or clinic. If you had a stent placed, it may have a string that will be secured to your skin. This helps your provider remove the stent. You may be given a strainer to collect any stone pieces that you pass in your pee. Your provider may have these tested. This information is not intended to replace advice given to you by your health care provider. Make sure you discuss any questions you have with your health care provider. Document Revised: 11/16/2022 Document Reviewed: 11/16/2022 [employer] Patient Education 2023 [employer]. Follow Up Care 11/28/2022 08:37:24 With:Moses GONZALEZ, RODDY YostL, URO Address: [address], [facility] [place] [address]- [phone] When: Unknown Comments:neymar SR [facility] 12-04-2023 Note Patient Education Nephrology Laser Therapy for Kidney Stones, Care After After laser therapy for kidney stones, it is common to have: ? Pain. ? A burning feeling when you pee (urinate). ? Small amounts of blood in your pee (urine). ? A need to pee a lot. ? Parts of the kidney stone in your pee. ? Mild discomfort in your back when you pee. You may have this if you had a small mesh tube (stent) placed during the procedure. Follow these instructions at home: Medicines ? Take dvqm-qey-vitkcvt and prescription medicines only as told by your health care provider. ? If you were prescribed antibiotics, take them as told by your provider. Do not stop using the antibiotic even if you start to feel better. ? Ask your provider if the medicine prescribed to you: ? Requires you to avoid driving or using machinery. ? Can cause constipation. You may need to take these actions to prevent or treat constipation: ? Drink enough fluid to keep your pee pale yellow. ? Take ohnw-zmg-gdlmvjd or prescription medicines. ? Eat foods that are high in fiber, such as beans, whole grains, and fresh fruits and vegetables. ? Limit foods that are high in fat and processed sugars, such as fried or sweet foods. Activity ? If you were given a sedative during the procedure, it can affect you for several hours. Do not drive or operate machinery until your provider says that it is safe. ? Return to your normal activities as told by your provider. Ask your provider what activities are safe for you. General instructions ? Your provider may recommend that you drink a lot of water for a few hours after your procedure. If you have heart or kidney disease, ask your provider how much you should drink. ? You may be asked to strain your pee to collect any stone pieces that you pass. Your provider may have these pieces tested. ? Do not take baths, swim, or use a hot tub until your provider approves. Ask your provider if you may take warm baths to soothe the burning. ? Keep all follow-up visits. If you have a stent, you will need to go back to your provider to have it removed. Your provider may give you more instructions. Make sure you know what you can and cannot do. Contact a health care provider if: ? You have pain or a burning feeling that lasts for more than 2 days. ? You feel nauseous. ? You vomit more and more often. ? You have trouble peeing. ? You have pain that gets worse or does not get better with medicine. ? You have a fever or shaking chills. Get help right away if: ? You cannot pee, even when your bladder feels full. ? You faint. ? You have chest pain, shortness of breath, or cough up blood. ? You have: ? Bright red blood or blood clots in your pee. ? Severe pain or discomfort. ? Pain in your abdomen. ? Swelling in your legs. These symptoms may be an emergency. Get help right away. Call 911. ? Do not wait to see if the symptoms will go away. ? Do not drive yourself to the hospital. This information is not intended to replace advice given to you by your health care provider. Make sure you discuss any questions you have with your health care provider. Document Revised: 11/16/2022 Document Reviewed: 11/16/2022 [employer] Patient Education ? 2023 [employer] Laser Therapy for Kidney Stones Laser therapy for kidney stones is a procedure to break up rock-like masses that form inside the kidneys (kidney stones). It is done using a device that beams a strong light (laser) on the kidney stones. This breaks the stones up into small pieces. These small pieces may leave your body when you pee (urinate) or may be taken out during the procedure. You may need laser therapy if you have kidney stones that are painful or that are stopping you from being able to pee. Tell a health care provider about: ? Any allergies you have. ? All medicines you are taking, including vitamins, herbs, eye drops, creams, and voac-aos-cwfzqcf medicines. ? Any problems you or family members have had with anesthesia. ? Any bleeding problems you have. ? Any surgeries you have had. ? Any medical conditions you have. ? Whether you are or may be . What are the risks? Your health care provider will talk with you about risks. These may include: ? Infection. ? Bleeding. ? Allergic reactions to medicines. ? Damage to: ? The part of your body that drains pee (urine) from the bladder (urethra). ? The bladder. ? The tube that connects the bladder to the kidneys (ureter). ? Urinary tract infection (UTI). ? Urethral stricture. This is when the urethra is narrowed by scarring. ? Trouble peeing. ? Blockage of the kidney. This may be caused by a piece of kidney stone. What happens before the procedure? When to stop eating and drinking Follow instructions from your provider about what you may eat and drink. These may include: ? 8 hours before the procedure ? Stop eating most foods. Do not e (more content not included)... [facility] 07-10-2023 Evaluation note Authored July 10, 2023 10:50am Sooner if needed, the ER if concerns,The above note written by Ginna Sanchez LPN acting as human recorder, note dictated by Dr. [facility] Work Phone: [phone]) 243-187609-21-2023 Evaluation note* Encounter Date Diagnosis Assessment Notes Treatment Notes Treatment Clinical Notes Nov, Type 2 diabetes mellitus with hyperglycemia, without long-term current use of insulin (ICD-10 - E11.65) The above lab performed in house and the improved result reviewed with the pt. He does admit to occasional episodes of feeling hypogylcemic. He states has only been taking a half of a tablet of the above medication. I recommended he stop this medication completely, and explained the dangers of hypoglycemia. 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 Pt tolerated this well. These lesions were sent for pathologic review. Nov, Prostate cancer (ICD-10 - C61) Review of prostate MRI with the pt. He is to continue to follow with the urologist for this. Nov, BPH (benign prostatic hypertrophy) (ICD-10 - N40.0) Pt is to continue with the above medication and we will continue to monitor. Nov, Weight loss (ICD-10 - R63.4) [facility] 08-30-2023 Hospital Discharge instructions Patient Education 11/28/2022 08:33:43 Prostate Cancer Prostate Cancer The prostate is a small gland that produces fluid that makes up semen (seminal fluid). It is located below the bladder in men, in front of the rectum. Prostate cancer is the abnormal growth of cells in the prostate gland. What are the causes? The exact cause of this condition is not known. What increases the risk? You are more likely to develop this condition if: You are 65 years of age or older. You have a family history of prostate cancer. You have a family history of breast and ovarian cancer. You have genes that are passed from parent to child (inherited), such as BRCA1 and BRCA2. You have Blount syndrome. men and men of descent are diagnosed with prostate cancer at higher rates than other men. The reasons for this are not well understood and are likely due to a combination of genetic and environmental factors. What are the signs or symptoms? Symptoms of this condition include: Problems with urination. This may include: ?A weak or interrupted flow of urine. ?Trouble starting or stopping urination. ?Trouble emptying the bladder all the way. ?The need to urinate more often, especially at night. Blood in urine or semen. Persistent pain or discomfort in the lower back, lower abdomen, or hips. Trouble getting an erection. Weakness or numbness in the legs or feet. How is this diagnosed? This condition can be diagnosed with: A digital rectal exam. For this exam, a health care provider inserts a gloved finger into the rectum to feel the prostate gland. A blood test called a prostate-specific antigen (PSA) test. A procedure in which a sample of tissue is taken from the prostate and checked under a microscope (prostate biopsy). An imaging test called transrectal ultrasonography. Once the condition is diagnosed, tests will be done to determine how far the cancer has spread. This is called staging the cancer. Staging may involve imaging tests, such as a bone scan, CT scan, PETscan, or MRI. Stages of prostate cancer The stages of prostate cancer are as follows: Stage 1 (I). At this stage, the cancer is found in the prostate only. The cancer is not visible on imaging tests, and it is usually found by accident, such as during prostate surgery. Stage 2 (II). At this stage, the cancer is more advanced than it is in stage 1, but the cancer has not spread outside the prostate. Stage 3 (III). At this stage, the cancer has spread beyond the outer layer of the prostate to nearby tissues. The cancer may be found in the seminal vesicles, which are near the bladder and the prostate. Stage 4 (IV). At this stage, the cancer has spread to other parts of the body, such as the lymph nodes, bones, bladder, rectum, liver, or lungs. Prostate cancer grading Prostate cancer is also graded according to how the cancer cells look under a microscope. This is called the [place] score and the total score can range from 6 10, indicating how likely it is that the cancer will spread (metastasize) to other parts of the body. The higher the score, the greater thelikelihood that the cancer will spread. [place] 6 or lower: This indicates that the cancer cells look similar to normal prostate cells (well differentiated). [place] 7: This indicates that the cancer cells look somewhat similar to normal prostate cells (moderately differentiated). [place] 8, 9, or 10: This indicates that the cancer cells look very different than normal prostate cells (poorly differentiated). How is this treated? Treatment for this condition depends on several factors, including the stage of the cancer, your age, personal preferences, and your overall health. Talk with your health care provider about treatment options that are recommended for you. Common treatments include: Observation for early stage prostate cancer (active surveillance). This involves having exams, blood tests, and in some cases, more biopsies. For some men, this is the only treatment needed. Surgery. Types of surgeries include: ?Open surgery (radical prostatectomy). In this surgery, a larger incision is made to remove the prostate. ?A laparoscopic radical prostatectomy. This is a surgery to remove the prostate and lymph nodes through several small incisions. It is often referred to as a minimally invasive surgery. ?A robotic radical prostatectomy. This is laparoscopic surgery to remove the prostate and lymph nodes with the help of robotic arms that are controlled by the surgeon. ?Cryoablation. This is surgery to freeze and destroy cancer cells. Radiation treatment. Types of radiation treatment include: ?External beam radiation. This type aims beams of radiation from outside the body at the prostate to destroy cancerous cells. ?Brachytherapy. This type uses radioactive needles, seeds, wires, or tubes that are implanted into the prostate gland. Like external beam radiation, brachytherapy destroys cancerous cells. An advantage is that this type of radiation limits the damage to surrounding tissue and has fewer side effects. Chemotherapy. This treatment kills cancer cells or stops them from multiplying. It kills both cancer cells and normal cells. Targeted therapy. This treatment uses medicines to kill cancer cells without damaging normal cells. Hormone treatment. This treatment involves taking medicines that act on testosterone, one of the male hormones, by: ?Stopping your body from producing testosterone. ?Blocking testosterone from reaching cancer cells. Follow these instructions at home: Lifestyle Do not use any products that contain nicotine or tobacco. These products include cigarettes, chewing tobacco, and vaping devices, such as e-cigarettes. If you need help quitting, ask your health careprovider. Eat a healthy diet. To do this: ?Eat foods that are high in fiber. These include beans, whole grains, and fresh fruits and vegetables. ?Limit foods that are high in fat and sugar. These include fried or sweet foods. Treatment for prostate cancer may affect sexual function. If you have a partner, continue to have intimate moments. This may include touching, holding, hugging, and caressing your partner. Get plenty of sleep. Consider joining a support group for men who have prostate cancer. Meeting with a support group mayhelp you learn to manage the stress of having cancer. General instructions Take nnkn-cnp-yegggoj and prescription medicines only as told by your health care provider. If you have to go to the hospital, notify your cancer specialist (oncologist). Keep all follow-up visits. This is important. Where to find more information [place] [employer]: www.cancer.org [place] [employer]: www.cancer.net National Cancer [place]: www.cancer.gov Contact a health care provider if: You have new or increasing trouble urinating. You have new or increasing blood in your urine. You have new or increasing pain in your hips, back, or chest. Get help right away if: You have weakness or numbness in your legs. You cannot control urination or your bowel movements (incontinence). You have chills or a fever. Summary The prostate is a small gland that is involved in the production of semen. It is located below a man's bladder, in front of the rectum. Prostate cancer is the abnormal growth of cells in the prostate gland. Treatment for this condition depends on the stage of the cancer, your age, personal preferences, and your overall health. Talk with your health care provider about treatment options that are recommended for you. Consider joining a support group for men who have prostate cancer. Meeting with a support group mayhelp you learn to manage the stress of having cancer. This information is not intended to replace advice given to you by your health care provider. Make sure you discuss any questions you have with your health care provider. Document Revised: 06/14/2021 Document Reviewed: 06/14/2021 [employer] Patient Education 2022 [employer]. Follow Up Care 11/13/2022 15:19:15 With:Moses GONZALEZ, АЛЕКСАНДР Yost, URO Address: When:Within 6 Month(s) Comments:w/KUB & PSA [facility] 08-16-2023 Evaluation note* Encounter Date Diagnosis Assessment Notes Treatment Notes Treatment Clinical Notes Oct, Type 2 diabetes mellitus with hyperglycemia, without long-term current use of insulin (ICD-10 - E11.65) [facility] 07-05-2023 Hospital Discharge instructions Patient Education 10/03/2022 08:22:41 Prostate Cancer Screening Prostate Cancer Screening Prostate cancer screening is testing that is done to check for the presence of prostate cancer in men. The prostate gland is a walnut-sized gland that is located below the bladder and in front of therectum in males. The function of the prostate is to add fluid to semen during ejaculation. Prostatecancer is one of the most common types of cancer in men. Who should have prostate cancer screening? Screening recommendations vary based on age and other risk factors, as well as between the professional organizations who make the recommendations. In general, screening is recommended if: You are age 50 to 70 and have an average risk for prostate cancer. You should talk with your healthcare provider about your need for screening and how often screening should be done. Because most prostate cancers are slow growing and will not cause , screening in this age group is generally reserved for men who have a 10- to 15-year life expectancy. You are younger than age 50, and you have these risk factors: ?Having a father, brother, or uncle who has been diagnosed with prostate cancer. The risk is higherif your family member's cancer occurred at an early age or if you have multiple family members withprostate cancer at an early age. ?Being a male who is Black or is of [place] or sub-Saharan descent. In general, screening is not recommended if: You are younger than age 40. You are between the ages of 40 and 49 and you have no risk factors. You are 70 years of age or older. At this age, the risks that screening can cause are greater than the benefits that it may provide. If you are at high risk for prostate cancer, your health care provider may recommend that you have screenings more often or that you start screening at a younger age. How is screening for prostate cancer done? The recommended prostate cancer screening test is a blood test called the prostate-specific antigen(PSA) test. PSA is a protein that is made in the prostate. As you age, your prostate naturally produces more PSA. Abnormally high PSA levels may be caused by: Prostate cancer. An enlarged prostate that is not caused by cancer (benign prostatic hyperplasia, or BPH). This condition is very common in older men. A prostate gland infection (prostatitis) or urinary tract infection. Certain medicines such as male hormones (like testosterone) or other medicines that raise testosterone levels. A rectal exam may be done as part of prostate cancer screening to help provide information about the size of your prostate gland. When a rectal exam is performed, it should be done after the PSA level is drawn to avoid any effect on the results. Depending on the PSA results, you may need more tests, such as: A physical exam to check the size of your prostate gland, if not done as part of screening. Blood and imaging tests. A procedure to remove tissue samples from your prostate gland for testing (biopsy). This is the only way to know for certain if you have prostate cancer. What are the benefits of prostate cancer screening? Screening can help to identify cancer at an early stage, before symptoms start and when the cancer can be treated more easily. There is a small chance that screening may lower your risk of dying from prostate cancer. The chance is small because prostate cancer is a slow-growing cancer, and most men with prostate cancer from a different cause. What are the risks of prostate cancer screening? The main risk of prostate cancer screening is diagnosing and treating prostate cancer that would never have caused any symptoms or problems. This is called overdiagnosisand overtreatment. PSA screening cannot tell you if your PSA is high due to cancer or a different cause. A prostate biopsy is the only procedure to diagnose prostate cancer. Even the results of a biopsy may not tell you if your cancer needs to be treated. Slow-growing prostate cancer may not need any treatment other than monitoring, so diagnosing and treating it may cause unnecessary stress or other side effects. Questions to ask your health care provider When should I start prostate cancer screening? What is my risk for prostate cancer? How often do I need screening? What type of screening tests do I need? How do I get my test results? What do my results mean? Do I need treatment? Where to find more information The [place] [employer]: www.cancer.org [place] [employer]: www.auanet.org Contact a health care provider if: You have difficulty urinating. You have pain when you urinate or ejaculate. You have blood in your urine or semen. You have pain in your back or in the area of your prostate. Summary Prostate cancer is a common type of cancer in men. The prostate gland is located below the bladder and in front of the rectum. This gland adds fluid to semen during ejaculation. Prostate cancer screening may identify cancer at an early stage, when the cancer can be treated more easily and is less likely to have spread to other areas of the body. The prostate-specific antigen (PSA) test is the recommended screening test for prostate cancer, butit has associated risks. Discuss the risks and benefits of prostate cancer screening with your health care provider. If you are age 70 or older, the risks that screening can cause are greater than the benefits that it may provide. This information is not intended to replace advice given to you by your health care provider. Make sure you discuss any questions you have with your health care provider. Document Revised: 09/11/2021 Document Reviewed: 09/11/2021 [employer] Patient Education 2022 [employer]. Follow Up Care 09/24/2022 08:31:37 With:Moses GONZALEZ, АЛЕКСАНДР Yost, URO Address: When: Unknown Comments:Sched biopsy and MRI [facility] 06-23-2023 Evaluation note* Encounter Date Diagnosis Assessment Notes Treatment Notes Treatment Clinical Notes Aug, Type 2 diabetes mellitus with hyperglycemia, without long-term current use of insulin (ICD-10 - E11.65) Reviewed blood work with the patient. Hgb a1c is greatly improved now being 5.37and previously was 6.3% 05/2022. He has been tolerating the amaryl well but due to his recent weight loss and having the sensation that his sugar drops occasionally, I did suggest he cut his 2mg tablet in half but will ultimately change his prescription for his next refill to 1mg. Aug, Elevated PSA (ICD-10 - R97.20) Diagnostic PSA now is 7.47 which has increased from 5.05 in July of 2021. I advised this increase and level it is at now is concerning and strongly advised he contact Dr. Lopes's office to discuss this and determine if a prostate biopsy is warranted at this time. I advised him that I do believe he is at that point where he should have a biopsy but again it is ultimately at the urologist's discression. He voiced understanding and agreed. Aug, BPH (benign prostatic hypertrophy) (ICD-10 - N40.0) Encouraged patient to follow with Urology as scheduled. Aug, Renal stones (ICD-10 - N20.0) Patient recently underwent a procedure to remove a right renal stone with stents placed at the time but since were removed. Encouraged him to follow with Dr. Lopes. Aug, Right maxillary sinusitis (ICD-10 - J32.0) After the patient's recent dental exam and x-ray imaging, it was found that he has chronic right maxillary sinusitis. He does have a fullness sensation in his head at times. I did agree with referring him to ENT for further evaluation. He was agreeable. Referral initiated. Aug, Unintentional weight loss (ICD-10 - R63.4) Patient has had a 12 pound weight loss in the last three months which is likely attributed to his A1C lowering but with his increasing PSA levels, it was strongly recommended to get in touch with Urologist, Dr. Lopes, to discuss this and hopefully discuss a prostate biopsy. He voiced understanding and agreed. 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 Both are hyperpigmented, painful, and with abnormal borders. I advised we will remove these at a late date via shave biopsy. Patient is agreeable. [facility] Other 04-13-2023 Hospital Discharge instructions Patient Education 07/12/2022 07:59:33 Dietary Guidelines to Help Prevent Kidney Stones Dietary Guidelines to Help Prevent Kidney Stones Kidney stones are deposits of minerals and salts that form inside your kidneys. Your risk of developing kidney stones may be greater depending on your diet, your lifestyle, the medicines you take, and whether you have certain medical conditions. Most people can reduce their chances of developing kidney stones by following the instructions below. Depending on your overall health and the type of kidney stones you tend to develop, your dietitian may give you more specific instructions. What are tips for following this plan? Reading food labels Choose foods with no salt added or low-salt labels. Limit your sodium intake to less than 1500 mg per day. Choose foods with calcium for each meal and snack. Try to eat about 300 mg of calcium at each meal.Foods that contain 200 500 mg of calcium per serving include: ?8 oz (237 ml) of milk, fortified nondairy milk, and fortified fruit juice. ?8 oz (237 ml) of kefir, yogurt, and soy yogurt. ?4 oz (118 ml) of tofu. ?1 oz of cheese. ?1 cup (300 g) of dried figs. ?1 cup (91 g) of cooked broccoli. ?1 3 oz can of sardines or mackerel. Most people need 1000 to 1500 mg of calcium each day. Talk to your dietitian about how much calciumis recommended for you. Shopping Buy plenty of fresh fruits and vegetables. Most people do not need to avoid fruits and vegetables, even if they contain nutrients that may contribute to kidney stones. When shopping for convenience foods, choose: ?Whole pieces of fruit. ?Premade salads with dressing on the side. ?Low-fat fruit and yogurt smoothies. Avoid buying frozen meals or prepared deli foods. Look for foods with live cultures, such as yogurt and kefir. Cooking Do not add salt to food when cooking. Place a salt shaker on the table and allow each person to addhis or her own salt to taste. Use vegetable protein, such as beans, textured vegetable protein (TVP), or tofu instead of meat in pasta, casseroles, and soups. Meal planning Eat less salt, if told by your dietitian. To do this: ?Avoid eating processed or premade food. ?Avoid eating fast food. Eat less animal protein, including cheese, meat, poultry, or fish, if told by your dietitian. To dothis: ?Limit the number of times you have meat, poultry, fish, or cheese each week. Eat a diet free of meat at least 2 days a week. ?Eat only one serving each day of meat, poultry, fish, or seafood. ?When you prepare animal protein, cut pieces into small portion sizes. For most meat and fish, one serving is about the size of one deck of cards. Eat at least 5 servings of fresh fruits and vegetables each day. To do this: ?Keep fruits and vegetables on hand for snacks. ?Eat 1 piece of fruit or a handful of berries with breakfast. ?Have a salad and fruit at lunch. ?Have two kinds of vegetables at dinner. Limit foods that are high in a substance called oxalate. These include: ?Spinach. ?Rhubarb. ?Beets. ?Potato chips and czech fries. ?Nuts. If you regularly take a diuretic medicine, make sure to eat at least 1 2 fruits or vegetables high in potassium each day. These include: ?Avocado. ?Banana. ?Lamar, prune, carrot, or tomato juice. ?Baked potato. ?Cabbage. ?Beans and split peas. General instructions Drink enough fluid to keep your urine clear or pale yellow. This is the most important thing you can do. Talk to your health care provider and dietitian about taking daily supplements. Depending on your health and the cause of your kidney stones, you may be advised: ?Not to take supplements with vitamin C. ?To take a calcium supplement. ?To take a daily probiotic supplement. ?To take other supplements such as magnesium, fish oil, or vitamin B6. Take all medicines and supplements as told by your health care provider. Limit alcohol intake to no more than 1 drink a day for non women and 2 drinks a day for men. One drink equals 12 oz of beer, 5 oz of wine, or 1 oz of hard liquor. Lose weight if told by your health care provider. Work with your dietitian to find strategies and an eating plan that works best for you. What foods are not recommended? Limit your intake of the following foods, or as told by your dietitian. Talk to your dietitian about specific foods you should avoid based on the type of kidney stones and your overall health. Grains Breads. Bagels. Rolls. Baked goods. Salted crackers. Cereal. Pasta. Vegetables Spinach. Rhubarb. Beets. Canned vegetables. Pickles. Olives. Meats and other protein foods Nuts. Nut butters. Large portions of meat, poultry, or fish. Salted or cured meats. Deli meats. Hotdogs. Sausages. Dairy Cheese. Beverages Regular soft drinks. Regular vegetable juice. Seasonings and other foods Seasoning blends with salt. Salad dressings. Canned soups. Soy sauce. Ketchup. Barbecue sauce. Canned pasta sauce. Casseroles. Pizza. Lasagna. Frozen meals. Potato chips. Greenlandic fries. Summary You can reduce your risk of kidney stones by making changes to your diet. The most important thing you can do is drink enough fluid. You should drink enough fluid to keep your urine clear or pale yellow. Ask your health care provider or dietitian how much protein from animal sources you should eat eachday, and also how much salt and calcium you should have each day. This information is not intended to replace advice given to you by your health care provider. Make sure you discuss any questions you have with your health care provider. Document Released: 07/13/2011 Document Revised: 07/08/2019 Document Reviewed: 02/26/2017 [employer] Patient Education 2019 [employer]. Follow Up Care 07/06/2022 11:26:43 With:Moses GONZALEZ, АЛЕКСАНДР Yost, URO Address: When: Unknown [facility] [place] 04-03-2023 NoteEXAM: XR CHEST 2 V HISTORY: Pre-surgery evaluation COMPARISON: None. TECHNIQUE: PA and lateral views of the chest. FINDINGS: The cardiomediastinal silhouette is normal. No focal consolidation is identified. There is no pneumothorax. No pleural effusion is noted. The osseous structures are intact. IMPRESSION: No acute cardiopulmonary process. Electronically authenticated by: JESUS WOODARD Date: 2022-07-02 13:39[facility]03-27-2023 Hospital Discharge instructions Patient Education 06/25/2022 15:38:35 Kidney Stones, Evni-wz-Tvyx Kidney Stones Kidney stones are rock-like masses that form inside of the kidneys. Kidneys are organs that make pee (urine). A kidney stone may move into other parts of the urinary tract, including: The tubes that connect the kidneys to the bladder (ureters). The bladder. The tube that carries urine out of the body (urethra). Kidney stones can cause very bad pain and can block the flow of pee. The stone usually leaves your body (passes) through your pee. You may need to have a doctor take out the stone. What are the causes? Kidney stones may be caused by: A condition in which certain glands make too much parathyroid hormone (primary hyperparathyroidism). A buildup of a type of crystals in the bladder made of a chemical called uric acid. The body makes uric acid when you eat certain foods. Narrowing (stricture) of one or both of the ureters. A kidney blockage that you were born with. Past surgery on the kidney or the ureters, such as gastric bypass surgery. What increases the risk? You are more likely to develop this condition if: You have had a kidney stone in the past. You have a family history of kidney stones. You do not drink enough water. You eat a diet that is high in protein, salt (sodium), or sugar. You are overweight or very overweight (obese). What are the signs or symptoms? Symptoms of a kidney stone may include: Pain in the side of the belly, right below the ribs (flank pain). Pain usually spreads (radiates) to the groin. Needing to pee often or right away (urgently). Pain when going pee (urinating). Blood in your pee (hematuria). Feeling like you may vomit (nauseous). Vomiting. Fever and chills. How is this treated? Treatment depends on the size, location, and makeup of the kidney stones. The stones will often pass out of the body through peeing. You may need to: Drink more fluid to help pass the stone. In some cases, you may be given fluids through an IV tube put into one of your veins at the hospital. Take medicine for pain. Make changes in your diet to help keep kidney stones from coming back. Sometimes, medical procedures are needed to remove a kidney stone. This may involve: A procedure to break up kidney stones using a beam of light (laser) or shock waves. Surgery to remove the kidney stones. Follow these instructions at home: Medicines Take haqd-bao-wyfcgtd and prescription medicines only as told by your doctor. Ask your doctor if the medicine prescribed to you requires you to avoid driving or using heavy machinery. Eating and drinking Drink enough fluid to keep your pee pale yellow. You may be told to drink at least 8 10 glasses of water each day. This will help you pass the stone. If told by your doctor, change your diet. This may include: ?Limiting how much salt you eat. ?Eating more fruits and vegetables. ?Limiting how much meat, poultry, fish, and eggs you eat. Follow instructions from your doctor about eating or drinking restrictions. General instructions Collect pee samples as told by your doctor. You may need to collect a pee sample: ?24 hours after a stone comes out. ?8 12 weeks after a stone comes out, and every 6 12 months after that. Strain your pee every time you pee (urinate), for as long as told. Use the strainer that your doctor recommends. Do not throw out the stone. Keep it so that it can be tested by your doctor. Keep all follow-up visits as told by your doctor. This is important. You may need follow-up tests. How is this prevented? To prevent another kidney stone: Drink enough fluid to keep your pee pale yellow. This is the best way to prevent kidney stones. Eat healthy foods. Avoid certain foods as told by your doctor. You may be told to eat less protein. Stay at a healthy weight. Where to find more information National Kidney Foundation (NKF): www.kidney.org [facility] (UCF): www.urologyhealth.org Contact a doctor if: You have pain that gets worse or does not get better with medicine. Get help right away if: You have a fever or chills. You get very bad pain. You get new pain in your belly (abdomen). You pass out (faint). You cannot pee. Summary Kidney stones are rock-like masses that form inside of the kidneys. Kidney stones can cause very bad pain and can block the flow of pee. The stones will often pass out of the body through peeing. Drink enough fluid to keep your pee pale yellow. This information is not intended to replace advice given to you by your health care provider. Make sure you discuss any questions you have with your health care provider. Document Released: 09/03/2008 Document Revised: 08/04/2019 Document Reviewed: 08/04/2019 [employer] Patient Education 2020 [employer]. Follow Up Care 05/21/2022 10:41:28 With:Moses GONZALEZ, АЛЕКСАНДР Yost, URO Address: When: Unknown [facility] 03-20-2023 Evaluation note* Encounter Date Diagnosis Assessment Notes Treatment Notes Treatment Clinical Notes May, Elevated PSA (ICD-10 - R97.20) The patient encouraged to continue following with urologist as scheduled. May, Hypertension (ICD-10 - I10) Blood pressure appears to be well controlled at this time. Pt is to continue with the above medication and we will continue to monitor. May, BPH (benign prostatic hypertrophy) (ICD-10 - N40.0) The patient encourged to continue following with urologist as scheduled. May, Hyperlipidemia (ICD-10 - E78.5) Review of blood work results with the patient . No signs of anemia or leukemia. Liver enzymes , kidney functions, and TSH are within normal findings. Total cholestol is 183, HDL of 43 with an LDL of 114. Pt is to continue with the above medication and continue watching their diet and increase their exercise regimen. May, Vitamin D deficiency (ICD-10 - E55.9) Vitamin D level is within normal range upon review of blood work results. The patient encouraged to continue Vitamin D supplements , he is taking 3000 units daily. May, Chest pain, unspecified type (ICD-10 - R07.9) Stress test findings reviewed with the patient noting normal results and fair exercise tolerance with no ischemic changes or cardiac arrhythmias. The patient states he continues to have occasional chest pain along with other musculoskeletal joint pain. May, Renal stones (ICD-10 - N20.0) CT of the abdomen obtained 05/17/22 reviewed noting a 12 mm stone at the right UVJ.A smaller left stone is also noted The patient will consult with urology next week. May, Type 2 diabetes mellitus with hyperglycemia, without long-term current use of insulin (ICD-10 - E11.65) Glucose is 125 with a hgb a1c of 6.3, up from 6.2 on 11/03/21. Medication options discussed as dietary measures appear to be failing. The patient tried Metformin in 2015 and feels he did not tolerate it well. Instead, we will try Amaryl, the patient is in agreement. Instructions, positive and negative side effects reviewed. Encouraged to watch diet and increase exercise regimen; we will continue to monitor. Educational material provided regarding foods to eat and foods to avoid. The patient is following with the [place] [facility]order[facility] who provides his medication. A written prescription of Amaryl provided as he may consider using [facility] instead. May, Polyarthralgia (ICD-10 - M25.50) The patient continues to complain of multiple joint pain.Rheumatoid panel was obtained seven months ago with no indication of RA, MONISHA or Lupus, inflammatory levels were within normal range. I recommend Aleve or Ibuprofen to use sparingly [facility] Other 02-08-2023 Evaluation note* Encounter Date Diagnosis Assessment Notes Treatment Notes Treatment Clinical Notes May, Chest pain, unspecified type (ICD-10 - R07.9) [facility] Other 02-08-2023 Hospital Discharge instructions Patient Education 05/09/2022 09:40:51 Prostatitis Prostatitis Prostatitis is swelling or inflammation of the prostate gland. The prostate is a walnut-sized glandthat is involved in the production of semen. It is located below a man's bladder, in front of the rectum. There are four types of prostatitis: Chronic nonbacterial prostatitis. This is the most common type of prostatitis. It may be associatedwith a viral infection or autoimmune disorder. Acute bacterial prostatitis. This is the least common type of prostatitis. It starts quickly and isusually associated with a bladder infection, high fever, and shaking chills. It can occur at any age. Chronic bacterial prostatitis. This type usually results from acute bacterial prostatitis that happens repeatedly (is recurrent) or has not been treated properly. It can occur in men of any age but is most common among middle-aged men whose prostate has begun to get larger. The symptoms are not as severe as symptoms caused by acute bacterial prostatitis. Prostatodynia or chronic pelvic pain syndrome (CPPS). This type is also called pelvic floor disorder. It is associated with increased muscular tone in the pelvis surrounding the prostate. What are the causes? Bacterial prostatitis is caused by infection from bacteria. Chronic nonbacterial prostatitis may becaused by: Urinary tract infections (UTIs). Nerve damage. A response by the body s disease-fighting system (autoimmune response). Chemicals in the urine. The causes of the other types of prostatitis are usually not known. What are the signs or symptoms? Symptoms of this condition vary depending upon the type of prostatitis. If you have acute bacterialprostatitis, you may experience: Urinary symptoms, such as: ?Painful urination. ?Burning during urination. ?Frequent and sudden urges to urinate. ?Inability to start urinating. ?A weak or interrupted stream of urine. Vomiting. Nausea. Fever. Chills. Inability to empty the bladder completely. Pain in the: ?Muscles or joints. ?Lower back. ?Lower abdomen. If you have any of the other types of prostatitis, you may experience: Urinary symptoms, such as: ?Sudden urges to urinate. ?Frequent urination. ?Difficulty starting urination. ?Weak urine stream. ?Dribbling after urination. Discharge from the urethra. The urethra is a tube that opens at the end of the penis. Pain in the: ?Testicles. ?Penis or tip of the penis. ?Rectum. ?Area in front of the rectum and below the scrotum (perineum). Problems with sexual function. Painful ejaculation. Bloody semen. How is this diagnosed? This condition may be diagnosed based on: A physical and medical exam. Your symptoms. A urine test to check for bacteria. An exam in which a health care provider uses a finger to feel the prostate (digital rectal exam). A test of a sample of semen. Blood tests. Ultrasound. Removal of prostate tissue to be examined under a microscope (biopsy). Tests to check how your body handles urine (urodynamic tests). A test to look inside your bladder or urethra (cystoscopy). How is this treated? Treatment for this condition depends on the type of prostatitis. Treatment may involve: Medicines to relieve pain or inflammation. Medicines to help relax your muscles. Physical therapy. Heat therapy. Techniques to help you control certain body functions (biofeedback). Relaxation exercises. Antibiotic medicine, if your condition is caused by bacteria. Warm water baths (sitz baths). Sitz baths help with relaxing your pelvic floor muscles, which helpsto relieve pressure on the prostate. Follow these instructions at home: Take lzui-nfk-qkftujt and prescription medicines only as told by your health care provider. If you were prescribed an antibiotic, take it as told by your health care provider. Do not stop taking the antibiotic even if you start to feel better. If physical therapy, biofeedback, or relaxation exercises were prescribed, do exercises as instructed. Take sitz baths as directed by your health care provider. For a sitz bath, sit in warm water that is deep enough to cover your hips and buttocks. Keep all follow-up visits as told by your health care provider. This is important. Contact a health care provider if: Your symptoms get worse. You have a fever. Get help right away if: You have chills. You feel nauseous. You vomit. You feel light-headed or feel like you are going to faint. You are unable to urinate. You have blood or blood clots in your urine. This information is not intended to replace advice given to you by your health care provider. Make sure you discuss any questions you have with your health care provider. Document Released: 03/15/2001 Document Revised: 05/31/2018 Document Reviewed: 12/06/2016 [employer] Patient Education 2020 [employer]. Plan 1. Take Bactrim every 12 hours daily for 4 weeks 2.Take meloxicam once a day for 2 weeks. Do not take any other NSAIDs (ibuprofen, motrin, Aleve) while taking this medication. Do not take on an empty stomach. 3. Obtain CT abdomen/pelvis without contrast. We will call if urgent results need to be addressed. 4. Obtain repeat PSA blood work 6-8 weeks AFTER you complete your month of antibiotics. Avoid straining, intercourse, or vigorous activity a few days prior to the test. Follow Up Care 11/01/2021 10:53:07 With:Moses GONZALEZ, АЛЕКСАНДР Yost, URO Address: When: Unknown [facility] 09-14-2022 Hospital Discharge instructions Patient Education 12/13/2021 10:20:34 Erectile Dysfunction Erectile Dysfunction Erectile dysfunction (ED) is the inability to get or keep an erection in order to have sexual intercourse. Erectile dysfunction may include: Inability to get an erection. Lack of enough hardness of the erection to allow penetration. Loss of the erection before sex is finished. What are the causes? This condition may be caused by: Certain medicines, such as: ?Pain relievers. ?Antihistamines. ?Antidepressants. ?Blood pressure medicines. ?Water pills (diuretics). ?Ulcer medicines. ?Muscle relaxants. ?Drugs. Excessive drinking. Psychological causes, such as: ?Anxiety. ?Depression. ?Sadness. ?Exhaustion. ?Performance fear. ?Stress. Physical causes, such as: ?Artery problems. This may include diabetes, smoking, liver disease, or atherosclerosis. ?High blood pressure. ?Hormonal problems, such as low testosterone. ?Obesity. ?Nerve problems. This may include back or pelvic injuries, diabetes mellitus, multiple sclerosis, or Parkinson disease. What are the signs or symptoms? Symptoms of this condition include: Inability to get an erection. Lack of enough hardness of the erection to allow penetration. Loss of the erection before sex is finished. Normal erections at some times, but with frequent unsatisfactory episodes. Low sexual satisfaction in either partner due to erection problems. A curved penis occurring with erection. The curve may cause pain or the penis may be too curved to allow for intercourse. Never having nighttime erections. How is this diagnosed? This condition is often diagnosed by: Performing a physical exam to find other diseases or specific problems with the penis. Asking you detailed questions about the problem. Performing blood tests to check for diabetes mellitus or to measure hormone levels. Performing other tests to check for underlying health conditions. Performing an ultrasound exam to check for scarring. Performing a test to check blood flow to the penis. Doing a sleep study at home to measure nighttime erections. How is this treated? This condition may be treated by: Medicine taken by mouth to help you achieve an erection (oral medicine). Hormone replacement therapy to replace low testosterone levels. Medicine that is injected into the penis. Your health care provider may instruct you how to give yourself these injections at home. Vacuum pump. This is a pump with a ring on it. The pump and ring are placed on the penis and used to create pressure that helps the penis become erect. Penile implant surgery. In this procedure, you may receive: ?An inflatable implant. This consists of cylinders, a pump, and a reservoir. The cylinders can be inflated with a fluid that helps to create an erection, and they can be deflated after intercourse. ?A semi-rigid implant. This consists of two silicone rubber rods. The rods provide some rigidity. They are also flexible, so the penis can both curve downward in its normal position and become straight for sexual intercourse. Blood vessel surgery, to improve blood flow to the penis. During this procedure, a blood vessel from a different part of the body is placed into the penis to allow blood to flow around (bypass) damaged or blocked blood vessels. Lifestyle changes, such as exercising more, losing weight, and quitting smoking. Follow these instructions at home: Medicines Take ffyz-vdp-atwbpwi and prescription medicines only as told by your health care provider. Do not increase the dosage without first discussing it with your health care provider. If you are using self-injections, perform injections as directed by your health care provider. Makesure to avoid any veins that are on the surface of the penis. After giving an injection, apply pressure to the injection site for 5 minutes. General instructions Exercise regularly, as directed by your health care provider. Work with your health care provider to lose weight, if needed. Do not use any products that contain nicotine or tobacco, such as cigarettes and e-cigarettes. If you need help quitting, ask your health care provider. Before using a vacuum pump, read the instructions that come with the pump and discuss any questionswith your health care provider. Keep all follow-up visits as told by your health care provider. This is important. Contact a health care provider if: You feel nauseous. You vomit. Get help right away if: You are taking oral or injectable medicines and you have an erection that lasts longer than 4 hours. If your health care provider is unavailable, go to the nearest emergency room for evaluation. An erection that lasts much longer than 4 hours can result in permanent damage to your penis. You have severe pain in your groin or abdomen. You develop redness or severe swelling of your penis. You have redness spreading up into your groin or lower abdomen. You are unable to urinate. You experience chest pain or a rapid heart beat (palpitations) after taking oral medicines. Summary Erectile dysfunction (ED) is the inability to get or keep an erection during sexual intercourse. This problem can usually be treated successfully. This condition is diagnosed based on a physical exam, your symptoms, and tests to determine the cause. Treatment varies depending on the cause, and may include medicines, hormone therapy, surgery, orvacuum pump. You may need follow-up visits to make sure that you are using your medicines or devices correctly. Get help right away if you are taking or injecting medicines and you have an erection that lasts longer than 4 hours. This information is not intended to replace advice given to you by your health care provider. Make sure you discuss any questions you have with your health care provider. Document Released: 03/15/2001 Document Revised: 02/28/2018 Document Reviewed: 04/03/2017 [employer] Patient Education 2020 [employer]. 12/13/2021 09:30:40 Testicular Self-Exam Testicular Self-Exam A self-examination of your testicles (testicular self-exam) involves looking at and feeling your testicles for abnormal lumps or swelling. Several things can cause swelling, lumps, or pain in your testicles. Some of these causes are: Injuries. Inflammation. Infection. Buildup of fluids around your testicle (hydrocele). Twisted testicles (testicular torsion). Testicular cancer. Why is it important to do a testicular self-exam? Self-examination of the testicles and the left and right groin areas may be recommended if you are at risk for testicular cancer. Your groin is where your lower abdomen meets your upper thighs. You may be at risk for testicular cancer if you have: An undescended testicle (cryptorchidism). A history of previous testicular cancer. A family history of testicular cancer. How to do a testicular self-exam The testicles are easiest to examine after a warm bath or shower. They are more difficult to examine when you are cold. This is because the muscles attached to the testicles retract and pull them up higher or into the abdomen. A normal testicle is egg-shaped and feels firm. It is smooth and not tender. The spermatic cord canbe felt as a firm, spaghetti-like cord at the back of your testicle. Look and feel for changes Stand and hold your penis away from your body. Look at each testicle to check for lumps or swelling. Roll each testicle between your thumb and forefinger, feeling the entire testicle. Feel for: ?Lumps. ?Swelling. ?Discomfort. Check the groin area between your abdomen and upper thighs on both sides of your body. Look and feel for any swelling or bumps that are tender. These could be enlarged lymph nodes. Contact a health care provider if: You find any bumps or lumps, such as a small, hard, pea-sized lump. You find swelling, pain, or soreness. You see or feel any other changes in your testicles. Summary A self-examination of your testicles (testicular self-exam) involves looking at and feeling your testicles for any changes. Self-examination of the testicles and the left and right groin areas may be recommended if you are at risk for testicular cancer. You should check each of your testicles for lumps, swelling, or discomfort. You should check for swelling or tender bumps in your groin area between your lower abdomen and upper thighs. This information is not intended to replace advice given to you by your health care provider. Make sure you discuss any questions you have with your health care provider. Document Released: 06/24/2001 Document Revised: 07/09/2019 Document Reviewed: 02/11/2017 [employer] Patient Education 2019 [employer]. Follow Up Care 11/21/2021 13:04:52 With:Moses GONZALEZ, Melanie Lane URL, URO Address: When:6 months Comments:PSA [facility] 08-05-2022 Evaluation note* Encounter Date Diagnosis Assessment Notes Treatment Notes Treatment Clinical Notes Oct, Hyperlipidemia (ICD-10 - E78.5) Blood work appears to be stable. Pt encouraged to continue watching their diet and increase their exercise regimen. Oct, Elevated PSA (ICD-10 - R97.20) I did review recent urology consult notes including prostate MRI and KUB . The patient will continue following with every six months who will manage his renal functions and PSA, follow up scheduled in 2022. The patient will wait to start the above medicaiton in a week when he gets to his vacation destination. Oct, Asbestosis (ICD-10 - J61) The patient [facility] , he is using a VPAP machine nightly.The patient vocies exposure while in the [employer] and worked for the [employer]. 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 I recommend the patinet establish care with pulmonology to further manage. A PFT and chest x-ray ordered and a consult was initiated. The patient is in agreement . Discussion was had this can lead to pneumonconiosis. Oct, Fatigue (ICD-10 - R53.83) No signs of anemia or leukemia upon review of blood work obtained four months ago. As above the patient is wearing a VPAP nightly. The patient encouraged to stay active. We will continue to monitor. Oct, Hyperglycemia (ICD-1 0 - R73.9) Blood work results reviewed with the patient obtined in 07/2021 noting elevated glucose levels, a in house Hgb a1c was ordered and reviewed resulting at 6.2 , similar compared to 2017. Pt is to continue with the above medication and we will continue to monitor. Oct, Polymyalgia (ICD-10 - M35.3) Blood work ordered due to complaints of polymyalgia . [facility] Other 08-03-2022 Hospital Discharge instructions Patient Education 11/01/2021 10:15:54 Prostate Cancer Screening Prostate Cancer Screening The prostate is a walnut-sized gland that is located below the bladder and in front of the rectum in males. The function of the prostate (prostate gland) is to add fluid to semen during ejaculation. Prostate cancer is the second most common type of cancer in men. A screening test for cancer is a test that is done before cancer symptoms start. Screening can helpto identify cancer at an early stage, when the cancer can be treated more easily. The recommended prostate cancer screening test is a blood test called the prostate-specific antigen (PSA) test. PSA is a protein that is made in the prostate. As you age, your prostate naturally produces more PSA. Abnormally high PSA levels may be caused by: Prostate cancer. An enlarged prostate that is not caused by cancer (benign prostatic hyperplasia, BPH). This condition is very common in older men. A prostate gland infection (prostatitis). Medicines to assist with hair growth, such as finasteride. Depending on the PSA results, you may need more tests, such as: A physical exam to check the size of your prostate gland. Blood and imaging tests. A procedure to remove tissue samples from your prostate gland for testing (biopsy). Who should have screening? Screening recommendations vary based on age. If you are younger than age 40, screening is not recommended. If you are age 40 54 and you have no risk factors, screening is not recommended. If you are younger than age 55, ask your health care provider if you need screening if you have oneof these risk factors: ?Being of -[place] descent. ?Having a family history of prostate cancer. If you are age 55 69, talk with your health care provider about your need for screening and how often screening should be done. If you are older than age 70, screening is not recommended. This is because the risks that screening can cause are greater than the benefits that it may provide (risks outweigh the benefits). If you are at high risk for prostate cancer, your health care provider may recommend that you have screenings more often or start screening at a younger age. You may be at high risk if you: Are older than age 55. Are -[place]. Have a father, brother, or uncle who has been diagnosed with prostate cancer. The risk may be higher if your family member's cancer occurred at an early age. What are the benefits of screening? There is a small chance that screening may lower your risk of dying from prostate cancer. The chance is small because prostate cancer is typically a slow-growing cancer, and most men with prostate cancer from a different cause. What are the risks of screening? The main risk of prostate cancer screening is diagnosing and treating prostate cancer that would never have caused any symptoms or problems (overdiagnosis and overtreatment). PSA screening cannot tell you if your PSA is high due to cancer or a different cause. A prostate biopsy is the only procedure to diagnose prostate cancer. Even the results of a biopsy may not tell you if your cancer needs edis treated. Slow-growing prostate cancer may not need any treatment other than monitoring, so diagnosing and treating it may cause unnecessary stress or other side effects. A prostate biopsy may also cause: Infection or fever. A false negative. This is a result that shows that you do not have prostate cancer when you actually do have prostate cancer. Questions to ask your health care provider When should I start prostate cancer screening? What is my risk for prostate cancer? How often do I need screening? What type of screening tests do I need? How do I get my test results? What do my results mean? Do I need treatment? Contact a health care provider if: You have difficulty urinating. You have pain when you urinate or ejaculate. You have blood in your urine or semen. You have pain in your back or in the area of your prostate. You have trouble getting or maintaining an erection (erectile dysfunction, ED). Summary Prostate cancer is a common type of cancer in men. The prostate (prostate gland) is located below the bladder and in front of the rectum. This gland adds fluid to semen during ejaculation. Prostate cancer screening may identify cancer at an early stage, when the cancer can be treated more easily. The prostate-specific antigen (PSA) test is the recommended screening test for prostate cancer. Discuss the risks and benefits of prostate cancer screening with your health care provider. If you are age 70 or older, screening is likely to lead to more risks than benefits (risks outweigh the benefits). This information is not intended to replace advice given to you by your health care provider. Make sure you discuss any questions you have with your health care provider. Document Released: 12/27/2017 Document Revised: 02/28/2018 Document Reviewed: 12/27/2017 [employer] Patient Education 2020 [employer]. Follow Up Care 09/20/2021 10:53:07 With:Moses GONZALEZ, АЛЕКСАНДР Yost, URO Address: [address], [place] [address] [phone] When:05/04/2022 Comments:PSA [facility] 06-22-2022 Hospital Discharge instructions Patient Education 09/20/2021 10:43:14 Prostate Cancer Screening Prostate Cancer Screening The prostate is a walnut-sized gland that is located below the bladder and in front of the rectum in males. The function of the prostate (prostate gland) is to add fluid to semen during ejaculation. Prostate cancer is the second most common type of cancer in men. A screening test for cancer is a test that is done before cancer symptoms start. Screening can helpto identify cancer at an early stage, when the cancer can be treated more easily. The recommended prostate cancer screening test is a blood test called the prostate-specific antigen (PSA) test. PSA is a protein that is made in the prostate. As you age, your prostate naturally produces more PSA. Abnormally high PSA levels may be caused by: Prostate cancer. An enlarged prostate that is not caused by cancer (benign prostatic hyperplasia, BPH). This condition is very common in older men. A prostate gland infection (prostatitis). Medicines to assist with hair growth, such as finasteride. Depending on the PSA results, you may need more tests, such as: A physical exam to check the size of your prostate gland. Blood and imaging tests. A procedure to remove tissue samples from your prostate gland for testing (biopsy). Who should have screening? Screening recommendations vary based on age. If you are younger than age 40, screening is not recommended. If you are age 40 54 and you have no risk factors, screening is not recommended. If you are younger than age 55, ask your health care provider if you need screening if you have oneof these risk factors: ?Being of -[place] descent. ?Having a family history of prostate cancer. If you are age 55 69, talk with your health care provider about your need for screening and how often screening should be done. If you are older than age 70, screening is not recommended. This is because the risks that screening can cause are greater than the benefits that it may provide (risks outweigh the benefits). If you are at high risk for prostate cancer, your health care provider may recommend that you have screenings more often or start screening at a younger age. You may be at high risk if you: Are older than age 55. Are -[place]. Have a father, brother, or uncle who has been diagnosed with prostate cancer. The risk may be higher if your family member's cancer occurred at an early age. What are the benefits of screening? There is a small chance that screening may lower your risk of dying from prostate cancer. The chance is small because prostate cancer is typically a slow-growing cancer, and most men with prostate cancer from a different cause. What are the risks of screening? The main risk of prostate cancer screening is diagnosing and treating prostate cancer that would never have caused any symptoms or problems (overdiagnosis and overtreatment). PSA screening cannot tell you if your PSA is high due to cancer or a different cause. A prostate biopsy is the only procedure to diagnose prostate cancer. Even the results of a biopsy may not tell you if your cancer needs edis treated. Slow-growing prostate cancer may not need any treatment other than monitoring, so diagnosing and treating it may cause unnecessary stress or other side effects. A prostate biopsy may also cause: Infection or fever. A false negative. This is a result that shows that you do not have prostate cancer when you actually do have prostate cancer. Questions to ask your health care provider When should I start prostate cancer screening? What is my risk for prostate cancer? How often do I need screening? What type of screening tests do I need? How do I get my test results? What do my results mean? Do I need treatment? Contact a health care provider if: You have difficulty urinating. You have pain when you urinate or ejaculate. You have blood in your urine or semen. You have pain in your back or in the area of your prostate. You have trouble getting or maintaining an erection (erectile dysfunction, ED). Summary Prostate cancer is a common type of cancer in men. The prostate (prostate gland) is located below the bladder and in front of the rectum. This gland adds fluid to semen during ejaculation. Prostate cancer screening may identify cancer at an early stage, when the cancer can be treated more easily. The prostate-specific antigen (PSA) test is the recommended screening test for prostate cancer. Discuss the risks and benefits of prostate cancer screening with your health care provider. If you are age 70 or older, screening is likely to lead to more risks than benefits (risks outweigh the benefits). This information is not intended to replace advice given to you by your health care provider. Make sure you discuss any questions you have with your health care provider. Document Released: 12/27/2017 Document Revised: 02/28/2018 Document Reviewed: 12/27/2017 [employer] Patient Education [employer]. Followup: 1. Obtain repeat PSA Free and Total after 1 week. If elevated, we will call you to schedule MRI prostate 2. Obtain renal US and KUB to evaluate for kidney stones 3. We will review your Select MDx results and the results above at your follow up appt Follow Up Care 08/21/2021 14:52:24 With:Moses GONZALEZ, Melanie Lane, URL, URO Address: When:6 weeks Comments:Discuss Select MDX results [facility] [employer] 05-17-2022 Evaluation note* Encounter Date Diagnosis Assessment Notes Treatment Notes Treatment Clinical Notes July, History of colon polyps (ICD-10 - Z86.010) [facility] Other 09-22-2015 History general Narrative - Reported* Type Description Date Medical History hyperglycemia Medical History 11+ years ago Colonoscopy Medical History Colonoscopy tubular adenoma of janice montenegro 12/21/14 Medical History dog bite 11/05/2015 Medical History 10/04/2015 PSA (1.8) Medical History 10/31/2016 PSA (2.0) Medical History MRSA of the right middle finger 2011 Medical History osteoarthritis of th e bilateral knees with bilateral knee replacements Medical History kidney stones Medical History elevated psa Medical History sleep apnea on c-pap Medical History asbestosis Surgical History Left foot Surgery Surgical History Right knee surgery Surgical History Appendectomy 1977 Surgical History Carpal tunnel release - right h and Surgical History Colonoscopy 11/2014 Surgical History left knee replacement [facility] 01/2021 Surgical History right knee replacement [facility] 05/2021 Surgical History Varicose vein surgery of both l egs Surgical History left ankle/ heel surgery to str aighten the ankle up 2009 Hospitalization History see above Hospitalization History Left knee replacement Vi [facility] 2020 Hospitalization History right knee replacement 2 022 Hospitalization History Carpal tunnel release Vi [facility]ir[facility] [place] [facility] Other 09-22-2015 History general Narrative - Reported* Type Description Date Medical History hyperglycemia Medical History 11+ years ago Colonoscopy Medical History Colonoscopy tubular adenoma of janice montenegro 12/21/14 Medical History dog bite 11/05/2015 Medical History 10/04/2015 PSA (1.8) Medical History 10/31/2016 PSA (2.0) Medical History MRSA of the right middle finger 2011 Medical History osteoarthritis of th e bilateral knees with bilateral knee replacements Medical History kidney stones Medical History elevated psa Medical History sleep apnea on c-pap Medical History asbestosis Medical History 10/24/2021 Prostate MRI Medical History 10/25/2021 Kidney US and KUB Surgical History Left foot Surgery Surgical History Right knee surgery Surgical History Appendectomy 1977 Surgical History Carpal tunnel release - right h and Surgical History Colonoscopy 11/2014 Surgical History left knee replacement [facility] 01/2021 Surgical History right knee replacement [facility] 05/2021 Surgical History Varicose vein surgery of both l egs Surgical History left ankle/ heel surgery to str aighten the ankle up 2009 Hospitalization History see above Hospitalization History Left knee replacement Vi [facility] 2020 Hospitalization History right knee replacement 2 022 Hospitalization History Carpal tunnel release Vi [facility] Other 09-22-2015 History general Narrative - Reported* Type Description Date Medical History hyperglycemia Medical History 11+ years ago Colonoscopy Medical History Colonoscopy tubular adenoma of janice montenegro 12/21/14 Medical History dog bite 11/05/2015 Medical History 10/04/2015 PSA (1.8) Medical History 10/31/2016 PSA (2.0) Medical History MRSA of the right middle finger 2011 Medical History osteoarthritis of th e bilateral knees with bilateral knee replacements Medical History kidney stones Medical History elevated psa Medical History sleep apnea on c-pap Medical History asbestosis Medical History 10/24/2021 Prostate MRI Medical History 10/25/2021 Kidney US and KUB Medical History 06/03/22 stess test Surgical History Left foot Surgery Surgical History Right knee surgery Surgical History Appendectomy 1977 Surgical History Carpal tunnel release - right h and Surgical History Colonoscopy 11/2014 Surgical History left knee replacement [facility] 01/2021 Surgical History right knee replacement [facility] 05/2021 Surgical History Varicose vein surgery of both l egs Surgical History left ankle/ heel surgery to str aighten the ankle up 2009 Hospitalization History see above Hospitalization History Left knee replacement Vi [facility] 2020 Hospitalization History right knee replacement 2 022 Hospitalization History Carpal tunnel release Vi app[facility] [employer] Other [id number] History general Narrative - Reported* Type Description Date Medical History hyperglycemia Medical History 11+ years ago Colonoscopy Medical History Colonoscopy tubular adenoma of janice montenegro 12/21/14 Medical History dog bite 11/05/2015 Medical History 10/04/2015 PSA (1.8) Medical History 10/31/2016 PSA (2.0) Medical History MRSA of the right middle finger 2011 Medical History osteoarthritis of th e bilateral knees with bilateral knee replacements Medical History kidney stones Medical History elevated psa Medical History sleep apnea on c-pap Medical History asbestosis Medical History 10/24/2021 Prostate MRI Medical History 10/25/2021 Kidney US and KUB Medical History 06/03/22 stess test Surgical History Left foot Surgery Surgical History Right knee surgery Surgical History Appendectomy 1977 Surgical History Carpal tunnel release - right h and Surgical History Colonoscopy 11/2014 Surgical History left knee replacement [facility] 01/2021 Surgical History right knee replacement [facility] 05/2021 Surgical History Varicose vein surgery of both l egs Surgical History left ankle/ heel surgery to str aighten the ankle up 2009 Surgical History lithotripsy per Dr. Lopes right renal stone removed/stent placed 06/2022 Hospitalization History see above Hospitalization History Left knee replacement Vi [facility] 2020 Hospitalization History right knee replacement 2 022 Hospitalization History Carpal tunnel release Vi [facility] [employer] Other Evaluation + Plan note Future Appointments Appointment Date:11/01/2021 09:15:00 AM Scheduled Provider:Melanie Lopes MD Location:[facility] Appointment Type:URO Office Visit Diagnostic Tests Pending * PSA Free & Total 09/20/21 [facility] evaluation + Plan note Future Appointments Appointment Date:05/09/2022 08:30:00 AM Scheduled Provider:Melanie Lopes MD Location:[facility] Appointment Type:URO Office Visit Diagnostic Tests Pending * PSA Free & Total 11/01/21 [facility] evaluation + Plan note Future Appointments Appointment Date:05/09/2022 08:30:00 AM Scheduled Provider:Melanie Lopes MD Location:[facility] Appointment Type:URO Office Visit Diagnostic Tests Pending * PSA Free & Total 12/13/21 [facility] evaluation + Plan note Future Appointments Appointment Date:08/15/2022 08:45:00 AM Scheduled Provider:Melanie Lopes MD Location:[facility] Appointment Type:URO Office Visit Diagnostic Tests Pending * PSA Free & Total 05/09/22 [facility] evaluation + Plan note Future Appointments Appointment Date:08/15/2022 08:45:00 AM Scheduled Provider:Melanie Lopes MD Location:[facility] Appointment Type:URO Office Visit [facility] Evaluation + Plan note Future Appointments Appointment Date:08/22/2022 09:30:00 AM Scheduled Provider:Melanie Lopes MD Location:[facility] Appointment Type:URO Office Visit [facility] Evaluation + Plan note Future Appointments Appointment Date:12/19/2022 08:00:00 AM Scheduled Provider:Melanie Lopes MD Location:[facility] Appointment Type:URO Office Visit [facility] evaluation + Plan note Future Appointments Appointment Date:06/05/2023 08:00:00 AM Scheduled Provider:Melanie Lopes MD Location:[facility] Appointment Type:URO Office Visit Diagnostic Tests Pending * PSA Free & Total 11/28/22 [facility] evaluation noteNo [facility] Other Evaluation note* Diagnosis Onset Date Resolution Status Personal history of colonic polyps acute [facility] Work Phone: Evaluation noteNo assessment information available [facility] Work Phone: Evaluation note* Author Ginna Sanchez [facility] Authored July 10, 2023 10: 50am Sooner if needed, the ER if concerns,The above note written by Ginna Sanchez LPN acting as human recorder, note dictated by Dr. Mario Hyman [facility] Work Phone: Evaluation note* Diagnosis Primary osteoarthritis of both knees Primary localized osteoarthrosis, lower [facility] Author Steph Reagan [facility] Authored January 21, 2024 2 :20pm The above note written by Ramirez Reagan LPN, acting as human recorder, note dictated by Dr. Mario Hyman. [facility] Work Phone: Hospital course Narrative No data available for this section [facility] Work [facility] Progress note No data available for this section [facility] reason for visit Narrative3 month Follow up-a1c & [facility] Other Reason for Referral Referred by: Moses GONZALEZ, Melanie Lane Reason consult and treat; c hronic right maxillary sinusitis Diagnosis 1 Right maxillary sinu sitis (J32.0) Referral Organization [facility] [employer] Referring Provider First Name Mario Referring Provider Last Name Yenni Referring Provider Specialty Family Prac dioni Referred Provider Cecilio Uriostegui Referred Provider Specialty Otolaryngolo gy Referral Priority Routine Reason consult and treat PFT and chest x-ray have been ordered Diagnosis 1 Asbestosis (J61) Referral Organization [facility] [place] Referring Provider First Name Mario Referring Provider Last Name Kunnorah Referring Provider Specialty Family Prac dioni Referred Organization [facility] Referred Provider Shantelle Lamas Referred Address ,[place], [place],[address] Referred Provider Specialty Pulmonary Di seases Referral Priority Routine Chief Complaint and Reason for Visit Chief Complaint Hx of Colon Polyps 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 Reason for Visit Personal history of colonic polyps Chief Complaint 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 Chief Complaint 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 J61 Chief Complaint elevated psa polymyalgia J61 J61 E29.1 j61 r06.00 Chief Complaint R97.20 n20.0 Chief Complaint R97.20 n20.0 R07.9 Chief Complaint r97.20 Chief Complaint needs EKG pre op, la bs done this morning Reason for Visit Encounter for pre-op erative examination Prostate cancer Chief Complaint i10 r73.03 needs EKG pre op, labs done this morning Reason for Visit Encounter for pre-op erative examination Prostate cancer Chief Complaint 6 month f/u, A1c Reason for Visit Hyperlipidemia Prostate cancer Type 2 diabetes mellitus Family History Relationship Condition Age at Onset Recorded Date/T kyle father Malignant neoplasm of liver Unknown Hemochromatosis Unknown Abdominal aortic aneurysm (AAA) Unknown brother Hemochromatosis Unknown Relationship Condition Age at Onset Recorded Date/T kyle father Malignant neoplasm of liver Unknown Hemochromatosis Unknown Abdominal aortic aneurysm (AAA) Unknown Malignant neoplasm Unknown Unknown brother Hemochromatosis Unknown Not Specified Dementia Unknown Relationship Condition Age at Onset Recorded Date/T kyle father Malignant neoplasm of liver Unknown Hemochromatosis Unknown Abdominal aortic aneurysm (AAA) Unknown Malignant neoplasm Unknown Unknown brother Hemochromatosis Unknown mother Dementia Unknown Advance Directives Advance Directive Response Recorded Date/ Time Advance Directives No August 30 11:09am Advance Directive Response Recorded Date/ Time Advance Directives No August 30 10:09am Summary Purpose Additional Source Comments Care Team (unrecognized sect ion and content) Team Status: Active Member Role Status Dates Mario Hyman DO Primary Care Provider Active Team Status: Active Member Role Status Dates Mario Hyman DO Primary Care Provider Active Sta rt: November 27, 2023 Melanie Lopes MD Attending Provider Active Start : November 27, 2023 Team Status: Inactive Member Role Status Dates Mario Hyman DO Primary Care Provide r, Attending Provider Active Start: January 21, 2024 End: January 21, 2024 Team Status: Active Member Role Status Dates Mario Hyman , DO Primary Care Provider Active Team Status: Inactive Member Role Status Dates Mario Hyman , DO Primary Care Provide r, Attending Provider Active Start: July 10, 2023 End: July 10, 2023 Team Status: Active Member Role Status Dates Mario Hyman , DO Primary Care Provide r, Attending Provider Active Start: July 10, 2023 Team Status: Inactive Member Role Status Dates Mario Hyman , DO Primary Care Provider Active Melanie Lopes MD Attending Provider Active Team Status: Inactive Member Role Status Dates Mario Hyman , DO Primary Care Provider Active Luis M Gramajo , DO Attending Provider Active Team Status: Inactive Member Role Status Dates Mario Hyman , DO Primary Care Provider, Attending Provi karissa Active Team Status: Inactive Member Role Status Dates Mario Hyman , DO Primary Care Provider Active Shantelle Lamas , DO Attending Provider Active Team Status: Inactive Member Role Status Dates Mario Hyman , DO Primary Care Provider, Attending Provi karissa Active Maury Wilder , DO Referring Provider Active Team Status: Inactive Member Role Status Dates Mario Hyman , DO Attending Provider Active Team Status: Active Member Role Status Dates Mario Hyman , DO Primary Care Provider Active Sta rt: November 27, 2023 Melanie Lopes MD Attending Provider Active Start : November 27, 2023 Team Status: Inactive Member Role Status Dates Mario Hyman , DO Primary Care Provide r, Attending Provider Active Start: January 21, 2024 End: January 21, 2024 REASON FOR VISIT (unrecogniz ed section and content) per bpkEMAIL PPWClinical6 we ek follow up - urologyclinicalClinical6 week f/u- review labs hyperlipidemia3 month Follow up DM/ PSA - labs printedRefills Goals (unrecognized section and content) Goals may be documented in a n alternate section (unrecognized sect ion and content) No Status Records FoundNo Status Records FoundNo Status Records FoundNo Status Records Found INFORMATION SOURCE (unrecogn ized section and content) DATE CREATED AUTHOR 08/02/2022 [facility] DATE CREATED AUTHOR AUTHOR'S ORGANIZ ATION 08/11/2022 [facility] DATE CREATED AUTHOR AUTHOR'S ORGANIZ ATION 07/12/2023 [facility] DATE CREATED AUTHOR AUTHOR'S ORGANIZ ATION 12/06/2023 [facility] Source Comments (unrecognize d section and content) In the event this informatio n is protected by the Federal Confidentiality of Alcohol and Drug Abuse Patient Records regulations: The Federal rules restrict any use of the information to criminally investigate or prosecute any alcohol or drug abuse patient.[facility] FOR RECORDS PERTAINING TO PATIENTS WHO ARE OR HAVE BEEN ENROLLED IN A CHEMICAL DEPENDENCY/SUBSTANCEABUSE PROGRAM, SOME INFORMATION MAY BE OMITTED. This clinical summary was aggregated from multiple sources. Caution should be exercised in using it in the provision of clinical care. This summary normalizes information from multiple sources, and as a consequence, information in this document may materially change the coding, format and clinical context of patient data. In addition, data may be omitted in some cases. CLINICAL DECISIONS SHOULD BE BASED ON THE PRIMARY CLINICAL RECORDS. [employer] [facility]. provides no warranty or guarantee of the accuracy or completeness of information in this document.
--- NOTE | 2024-01-27 10:01 | ECG_ITS ---
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
--- NOTE | 2024-01-27 10:12 | P.GSHP_ITS ---
History of Present Illness History of Present Illness Chief complaint: left kidney stone Narrative: Patient presents for preadmission testing. The patient reports a history of kidney stones, he states he had a follow-up with urology and is now scheduled for a procedure for left-sided kidney stone. The patient states he has had occasional twinges of flank pain but no other urinary complaints. He denies abdominal pain, nausea, vomiting, hematuria, dysuria, or any other complaints. Review of Systems ROS Narrative REVIEW OF SYSTEMS: Negative except as stated in HPI, ten or more systems reviewed. Constitutional: No fever, chills, weakness ENT: No sore throat or epistaxis Cardiovascular: No edema, chest pain, palpitations, or activity intolerance Respiratory: No shortness of breath, cough, or wheezing Musculoskeletal: No joint pain or swelling Gastrointestinal: No abdominal pain, constipation, diarrhea, or vomiting Genitourinary: No dysuria or hematuria Neurological: No numbness, tingling, weakness, or headache Psychiatric: No mood changes PFSH PFS Medical History (Updated 01/27/24 @ 09:50 by Anni Kamara NP) Prostate cancer ?C61 - Malignant neoplasm of prostate (ICD-10) Arthritis ?M19.90 - Unspecified osteoarthritis, unspecified site (ICD-10) Deep vein thrombosis (2009) ?I82.409 - Acute embolism and thrombosis of unspecified deep veins of unspecified lower extremity (ICD-10) COVID-19 ?U07.1 - COVID-19 (ICD-10) Sleep apnea ?G47.30 - Sleep apnea, unspecified (ICD-10) History of radiation therapy ?Z92.3 - Personal history of irradiation (ICD-10) Asthma ?J45.909 - Unspecified asthma, uncomplicated (ICD-10) Hypertension ?I10 - Essential (primary) hypertension (ICD-10) Diabetes ?E11.9 - Type 2 diabetes mellitus without complications (ICD-10) Prostatitis ?N41.9 - Inflammatory disease of prostate, unspecified (ICD-10) Nocturia ?R35.1 - Nocturia (ICD-10) Kidney stones ?N20.0 - Calculus of kidney (ICD-10) Erectile dysfunction ?N52.9 - Male erectile dysfunction, unspecified (ICD-10) BPH (benign prostatic hyperplasia) ?N40.0 - Benign prostatic hyperplasia without lower urinary tract symptoms (ICD-10) Surgical History (Updated 01/27/24 @ 09:46 by Anni Kamara NP) History of ankle surgery ?Z98.890 - Other specified postprocedural states (ICD-10) H/O prostate biopsy (11/21/22) ?Z98.890 - Other specified postprocedural states (ICD-10) H/O wrist surgery ?Z98.890 - Other specified postprocedural states (ICD-10) Hx of tonsillectomy ?Z90.89 - Acquired absence of other organs (ICD-10) History of knee replacement ?Z96.659 - Presence of unspecified artificial knee joint (ICD-10) Hx of appendectomy ?Z90.49 - Acquired absence of other specified parts of digestive tract (ICD- 10) History of lithotripsy ?Z98.890 - Other specified postprocedural states (ICD-10) Family History (Updated 11/20/22 @ 10:24 by Grisel Barker RN) Other Cardiac aneurysm Family history of cancer Social History (Updated 11/20/22 @ 10:25 by Grisel Barker RN) Within the past year, how often did you have a drink containing alcohol: monthly or less Smoking status: Never smoker Non-prescribed substance use: denies use Previous occupational history: retired Highest level of school completed/degree received: high school graduate Meds Home Medications and Allergies Home Medications ?Medication ?Instructions ?Recorded ?Confirmed ?Type albuterol 90 mcg/actuation aerosol 2 mcg inhalation .every 4 hours 11/20/22 01/27/24 History inhaler PRN shortness of breath or wheezing aspirin 81 mg capsule 81 mg PO DAILY 11/20/22 01/27/24 History lisinopril 20 mg tablet 20 mg PO QPM 11/20/22 01/27/24 History tadalafil 5 mg tablet (Cialis) 5 mg PO DAILY 11/20/22 01/27/24 History tamsulosin 0.4 mg capsule (Flomax) 0.4 mg PO DAILY 11/20/22 01/27/24 History Allergies Allergy/AdvReac Type Severity Reaction Status Date / Time No Known Drug Allergies Allergy Unverified 01/27/24 09:41 Exam Narrative Exam Narrative: Constitutional: Awake, alert, comfortable, well-appearing, nontoxic, interactive, vital signs as charted Head: Normocephalic, atraumatic Neck: Supple, normal appearance, normal range of motion, no meningeal signs, no lymphadenopathy Respiratory: No respiratory distress, breath sounds clear Cardiovascular: Regular rate and rhythm, strong and regular heart tones Abdomen: Nontender, normal bowel sounds, soft, no CVA tenderness Musculoskeletal: Normal gait, no swelling or edema Skin: No rashes or induration, no lesions, only visible skin inspected Neuro: No neurological deficits, normal sensation Psychiatric: Oriented ?3, normal affect Assessment and Plan Assessment and Plan (1) Kidney stones: Plan Left ESWL scheduled with Dr. Lopes February 05, 2024.
[2024-01-27 10:36] LABS: Calcium 9.1 mg/dL (8.5-10.1); Chloride 106 mmol/L (98-107); Estimated GFR (African America >60 (>=60 mL/min/1.73m^2); Estimated GFR (Non-African Ame >60 (>=60 mL/min/1.73m^2); Glucose 117 mg/dL (74-106); Sodium 141 mmol/L (136-145)
== END 2024-01-27 09:25 | disposition home or self-care (01) ==
PROVIDERS: PCP Family Medicine; Visit Provider Urology
DX: Z01.810 Encounter for preprocedural cardiovascular examination (principal); Z01.812 Encounter for preprocedural laboratory examination; Z01.818 Encounter for other preprocedural examination; N20.0 Calculus of kidney
CPT/HCPCS: 36415; 80048; 93005; G0463

== ENCOUNTER 2024-02-05 11:16 | Day surgery (SDC) | payer MEDICARE, OTHER, SELFPAY ==
[2024-01-27 09:56] VITALS: BP 143/80; PULSE 73; TEMP 36.3; O2SAT 97; BMI 34.3
[2024-02-05] VITALS (10 sets, daily range): BP systolic 123–149; BP diastolic 79–92; PULSE 60–70; TEMP 36.1–36.2; O2SAT 96–100; BMI 33.6
--- NOTE | 2024-02-05 11:15 | XR_ITS ---
[address] [address] Patient Name: JAMILA GRAHAM MRN: [id number] date: 1950 Sex: M Assigned Patient Location: [facility] Current Patient Location: Accession/Order Number: [id number] Exam Date: 02/05/2024 11:22 Report Date: 02/10/2024 07:20 At the request of: LILIYA LOPEZ Procedure: XR abdomen 1V EXAMINATION: XR abdomen 1V HISTORY: kidney stones COMPARISON: 11/27/2023 FINDINGS: KIDNEY/URETER - RIGHT: No visible renal or ureteral calcifications. KIDNEY/URETER - LEFT: 2 nephroliths, the largest measuring 6.5 mm PELVIS: No visible ureteral calcifications. Any visible calcifications favor phleboliths. BOWEL: No abnormal dilation or deviation. BONES: No acute abnormality. Moderate spondylosis OTHER: Negative. No abnormal gaseous collections. XR/XR abdomen 1V IMPRESSION: Left nephrolithiasis Electronically authenticated by: SERGIO CODY Date: 02/10/2024 07:20
--- OUTSIDE RECORDS SUMMARY | 2024-02-05 11:38 | XMS_ITS | CCD ---
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 Name Role Phone MARIO HYMAN Primary Care Physician [phone] Mairo Hyman Unavailable Luis M Gramajo Unavailable DO Mario Hyman Primary Care Provider DO Luis M Gramajo Attending Provider [phone] MD Melanie Lopes Attending Provider [phone] DO Mario Hyman Attending Provider DO Mario Hyman Primary Care Provider [phone] DO Mario Hyman Primary Care Provider MD Melanie Lopes Attending Provider [phone] DO Shantelle Lamas Attending Provider DO Mario Hyman Primary Care Provider [phone] MD Melanie Lopes Attending Provider [phone] DO Mario Hyman Attending Provider DO Maury Wilder Referring Provider DO Mario Hyman Primary Care Provider MD Melanie Lopes Attending Provider [phone] DO Mario Hyman Attending Provider DO Maury Wilder Referring Provider Yenni, Dr. Mario Mckinley Primary Care UnavailElmo [...] Unavailable Jackys, DO Martin Primary Care Provider [phone] Yenni, DO Martin Attending Provider Jackys, DO Martin Primary Care Provider MD Melanie Lopes Attending Provider Kuns, DO Martin Attending Provider Kuns, DO [...] Referring Unavailable Ashley Hernandez Attending Unavailable Ashley eHrnandez Admitting Unavailable Melanie Lopes Attending Unavailable Melanie Lopes Attending Unavailable Melanie Lopes Attending Unavailable Unavailable Primary Care Provider Unavailabl e Allergies Allergy Classification Reported Allergen(s) Allergy Type Date of Onset Reaction(s) Facility (1 source) No Known Medication Allergies; Translations: [No Known Medication Allergies] Propensity to adverse reactions (disorder) [facility] Repository Medications Current Medications Medication Drug Class(es) Dates Sig (Normalized) Sig (Original) [id number] 200 actuat albuterol 0.09 mg/actuat metered dose [...] 07-10-2023 Chronic Other aftercare (1 source) Other senior living (current) drug therapy; Translations: [OTH DETENTION CURRENT DRUG THERAPY] Onset: 07-11-2022 Episodic Other aftercare (1 source) 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 Underwent Proton/Radiation. Last radiation Tx was 10/15/23. [...] Biopsy and 15% chance it would be Miracle score 7 or higher. MRI prostate 10/24/21 [facility] - neg, BPH changes. Prior prostatitis. 81 g volume. PSAD 0.06 (low) PSA: 10/31/16 - 2.00 01/2021 - Pt stated he had PSA done by PCP in [place] but could not find records of this, [...] w/ Dr. Kelvin Leija (rad onc) in [place], [place]. Finished proton treatment 10/15/23. -Cont following [...] Contact Information Melanie Lopes MD, URL, U[facility] [address] [facility] [place] [address]- [phone] Additional Instructions: sched L ESWL Patient Education Laser Therapy for Kidney Stones, Care After Laser Therapy for Kidney Stones Monica Chadwick (more content not included)... Normal [facility] Comment on above: Result Comment: Elec tronically Signed By: Melanie Lopes MD\.br\Date and Time Signed: 12/04/23 12:32 EDT\.br\Electronically Co-Signed By: Monica Rubio\.br\Date and Time Co-Signed: 12/04/23 10:41 EDT No Panel Informationon 11-26 Free Prostate Specific Antigen 0.34 ng/mL N/A [facility] Comment on above: Erika ECLIA methodol ogy. Prostate Specific Antigen Total 4.1 ng/mL Abnormal 0.0-4.0 [facility] Comment on above: Erika ECLIA methodol ogy.According to the [place] [employer], Serum PSAshould decrease and remain [...] PSA/Total PSA [Mass fraction] 8.3 % . [facility] Comment on above: The table below list [...] for any other population of men.Performed at: [facility] [id number] Director: Toi Hernandez PhD, Phone: [phone] A1C with Estimated Average Isha dominguez 07-10-2023 Glucose [Mass/Vol] 126 mg/dL Normal The On license of [facility] Comment on above: Result Comment: PERF ORMED BY: [place] [address] PATHOLOGIST POLICE SERGEANT LIANA SALTER M.D. Performed By: #### C BC, CMP, A1C WT eA, LIPID, TSH3 #### [address] HbA1c (Bld) [Mass fraction] 6.0 % High 4.3-5.6 The [facility] Comment on above: Result Comment: Incr eased risk for diabetes: 5.7 - 6.4 diabetes: >6.4 glycemic control for adults with diabetes: <7.0 Performed By: #### C BC, CMP, A1C WTH eA, LIPID, TSH3 #### [facility] [address] Alanine aminotransferase [En zymatic activity/volume] in Serum or PlasmaOrdered By: Mario Hyman on 07-10-2023 ALT [Catalytic activity/Vol] 24 U/L 7-52 [facility] Albumin [Mass/volume] in Ser um or Plasma by Bromocresol green (BCG) dye binding methoOrdered By: Mario Hyman on 07-10-2023 Albumin BCG dye [Mass/Vol] 4.1 g/dL 3.5-5.7 [facility] Alkaline phosphatase [Enzyma tic activity/volume] in Serum or PlasmaOrdered By: Mario Hyman on 07-10-2023 ALP [Catalytic activity/Vol] 68 U/L 34-104 [facility] Aspartate aminotransferase [ Enzymatic activity/volume] in Serum or PlasmaOrdered By: Mario Hyman on 07-10-2023 AST [Catalytic activity/Vol] 24 U/L 13-39 [facility] Basophils Auto (Bld) [#/Vol] Ordered By: Mario Hyman on 07-10-2023 Basophils (Bld) [#/Vol] 0.1 10*3/uL 0.0-0.2 [facility] Basophils/100 WBC Auto (Bld) Ordered By: Mario Hyman on 07-10-2023 Basophils/100 WBC (Bld) 1.1 % . [facility] Bilirubin.total [Mass/volume ] in Serum or PlasmaOrdered By: Mario Hyman on 07-10-2023 Bilirubin [Mass/Vol] 0.8 mg/dL 0.3-1.0 [facility] Calcium [Mass/volume] in Ser um or PlasmaOrdered By: Mario Hyman on 07-10-2023 Calcium [Mass/Vol] 8.7 mg/dL 8.6-10.3 [facility] Carbon dioxide, total [Moles /volume] in Serum or PlasmaOrdered By: Mario Hyman on 07-10-2023 CO2 [Moles/Vol] 25.8 mmol/L 21.0-31.0 [facility] Chloride [Moles/volume] in S eder or PlasmaOrdered By: Mario Hyman on 07-10-2023 Chloride [Moles/Vol] 108 mmol/L 98-107 [facility] Cholesterol [Mass/volume] in Serum or PlasmaOrdered By: Mario Hyman on 07-10-2023 Cholesterol [Mass/Vol] 146 mg/dL 140-200 [facility] Comment on above: Chol less than 200 m g/dl low riskChol 201-239 mg/dl borderline riskChol 240 mg/dl and greater high risk Cholesterol in LDL Calc [Mas s/Vol]Ordered By: Mario Hyman on 07-10-2023 Cholesterol in LDL [Mass/Vol] 86 mg/dL 0-100 [facility] Comment on above: LDL ATP III CLASSIFI CATIONLDL less than 100 mg/dL OptimalLDL 100-129 mg/dL Near or above optimalLDL 130-159 mg/dL Borderline highLDL 160-189 mg/dL HighLDL greater than 189 mg/dL Very high Cholesterol in VLDL Calc [Ma ss/Vol]Ordered By: Mario Hyman on 07-10-2023 Cholesterol in VLDL [Mass/Vol] 16 mg/dL [facility] Complete Blood Count Auto Di ffon 07-10-2023 Basophils (Bld) [#/Vol] 0.1 10*3/uL Normal 0.0-0.2 The [facility] Comment on above: Result Comment: PERF ORMED BY: [place] [address] PATHOLOGIST POLICE SERGEANT LIANA SALTER M.D. Performed By: #### C BC, CMP, A1C WTH eA, LIPID, TSH3 #### [facility] [address] [place] [address] [place] Basophils/100 WBC (Bld) 1.1 % Normal . [facility] Comment on above: Performed By: #### C BC, CMP, A1C WTH eA, LIPID, TSH3 #### [facility] [address] [place] [address] [place] Eosinophils (Bld) [#/Vol] 0.0 10*3/uL Normal 0.0-0.45 [facility] Comment on above: Performed By: #### C BC, CMP, A1C WTH eA, LIPID, TSH3 #### [address] Eosinophils/100 WBC (Bld) 0.4 % Normal . [facility] Comment on above: Performed By: #### C BC, CMP, A1C WTH eA, LIPID, TSH3 #### [address] Erythrocyte distribution width (RBC) [Ratio] 12.7 % Normal 12.0-14.8 [facility] Comment on above: Performed By: #### C BC, CMP, A1C WTH eA, LIPID, TSH3 #### [address] Hematocrit (Bld) [Volume fraction] 40.9 % Normal 38.8-50.0 [facility] Comment on above: Performed By: #### C BC, CMP, A1C WTH eA, LIPID, TSH3 #### [address] Hemoglobin (Bld) [Mass/Vol] 13.7 g/dL Normal 13.0-17.0 [facility] Comment on above: Performed By: #### C BC, CMP, A1C WTH eA, LIPID, TSH3 #### [address] Lymphocytes (Bld) [#/Vol] 1.2 10*3/uL Normal 1.00-4.8 [facility] Comment on above: Performed By: #### C BC, CMP, A1C WTH eA, LIPID, TSH3 #### [address] Lymphocytes/100 WBC (Bld) 23.0 % Normal . [facility] Comment on above: Performed By: #### C BC, CMP, A1C WTH eA, LIPID, TSH3 #### [address] MCH (RBC) [Entitic mass] 30.1 pg Normal 27.5-35.2 [facility] Comment on above: Performed By: #### C BC, CMP, A1C WTH eA, LIPID, TSH3 #### [address] MCV (RBC) [Entitic vol] 90.2 fL Normal 83.5-101 [facility] Comment on above: Performed By: #### C BC, CMP, A1C WTH eA, LIPID, TSH3 #### [address] Mean Corpuscular HGB Conc 33.4 g/dL Normal 32.5-35.6 [facility] Comment on above: Performed By: #### C BC, CMP, A1C WTH eA, LIPID, TSH3 #### [address] Monocytes (Bld) [#/Vol] 0.4 10*3/uL Normal 0.0-0.8 [facility] Comment on above: Performed By: #### C BC, CMP, A1C WTH eA, LIPID, TSH3 #### [address] Monocytes/100 WBC (Bld) 8.3 % Normal . [facility] Comment on above: Performed By: #### C BC, CMP, A1C WTH eA, LIPID, TSH3 #### [address] Neutrophils (Bld) [#/Vol] 3.4 10*3/uL Normal 1.8-7.7 [facility] Comment on above: Performed By: #### C BC, CMP, A1C WTH eA, LIPID, TSH3 #### [address] Neutrophils/100 WBC (Bld) 67.2 % Normal . [facility] Comment on above: Performed By: #### C BC, CMP, A1C WTH eA, LIPID, TSH3 #### [address] NRBC% 0.5 /100{WBC} Normal 0-0.5 The [facility] Comment on above: Performed By: #### C BC, CMP, A1C WTH eA, LIPID, TSH3 #### [facility] [address] Platelet mean volume (Bld) [Entitic vol] 9.6 fL Normal 6.6-10.1 The [facility] Comment on above: Performed By: #### C BC, CMP, A1C WTH eA, LIPID, TSH3 #### [facility] [address] Platelets (Bld) [#/Vol] 148 10*3/uL Low 150-450 [facility] Comment on above: Performed By: #### C BC, CMP, A1C WTH eA, LIPID, TSH3 #### [facility] [address] RBC (Bld) [#/Vol] 4.54 10*6/uL Normal 3.90-5.60 The [facility] Comment on above: Performed By: #### C BC, CMP, A1C WTH eA, LIPID, TSH3 #### [facility] [address] WBC (Bld) [#/Vol] 5.1 10*3/uL Normal 4.1-10.5 The On license of [facility] Comment on above: Performed By: #### C BC, CMP, A1C WTH eA, LIPID, TSH3 #### [address] Comprehensive Metabolic Pane serge 07-10-2023 Albumin [Mass/Vol] 4.1 g/dL Normal 3.5-5.7 The On license of [facility] Comment on above: Performed By: #### C BC, CMP, A1C WTH eA, LIPID, TSH3 #### [facility] [address] Albumin/Globulin [Mass ratio] 1.8 {ratio} Normal [facility] Comment on above: Performed By: #### C BC, CMP, A1C WTH eA, LIPID, TSH3 #### [facility] [address] ALP [Catalytic activity/Vol] 68 U/L Normal 34-104 [facility] Comment on above: Performed By: #### C BC, CMP, A1C WTH eA, LIPID, TSH3 #### [address] ALT [Catalytic activity/Vol] 24 U/L Normal 7-52 [facility] Comment on above: Performed By: #### C BC, CMP, A1C WTH eA, LIPID, TSH3 #### [address] Anion gap [Moles/Vol] 10.3 mmol/L Normal 6.0-15.0 Th e [facility] Comment on above: Performed By: #### C BC, CMP, A1C WTH eA, LIPID, TSH3 #### [address] AST [Catalytic activity/Vol] 24 U/L Normal 13-39 [facility] Comment on above: Performed By: #### C BC, CMP, A1C WTH eA, LIPID, TSH3 #### [address] Bilirubin [Mass/Vol] 0.8 mg/dL Normal 0.3-1.0 [facility] Comment on above: Performed By: #### C BC, CMP, A1C WTH eA, LIPID, TSH3 #### [address] Calcium [Mass/Vol] 8.7 mg/dL Normal 8.6-10.3 The On license of [facility] Comment on above: Performed By: #### C BC, CMP, A1C WTH eA, LIPID, TSH3 #### [place] [address] [place] Chloride [Moles/Vol] 108 mmol/L High 98-107 [facility] Comment on above: Performed By: #### C BC, CMP, A1C WTH eA, LIPID, TSH3 #### [address] CO2 [Moles/Vol] 25.8 mmol/L Normal 21.0-31.0 The [facility] Comment on above: Performed By: #### C BC, CMP, A1C WTH eA, LIPID, TSH3 #### [facility] [address] Creatinine [Mass/Vol] 0.73 mg/dL Normal 0.70-1.30 [facility] Comment on above: Performed By: #### C BC, CMP, A1C WTH eA, LIPID, TSH3 #### [place] [address] [place] GFR/1.73 sq M.predicted MDRD (S/P/Bld) [Vol rate/Area] mL/min/{1.73_m2} Normal [facility] Comment on above: Performed By: #### C BC, CMP, A1C WTH eA, LIPID, TSH3 #### [address] Globulin (S) [Mass/Vol] 2.3 g/dL Normal [facility] Comment on above: Performed By: #### C BC, CMP, A1C WTH eA, LIPID, TSH3 #### [address] Glucose [Mass/Vol] 129 mg/dL High 70-100 The On license of [facility] Comment on above: Result Comment: [facility] Glucose Reference Range is dependent on time and content of last meal. Glucose of more than 200 mg/dL in a nonstressed, ambulatory subject supports the diagnosis of Diabetes Mellitus. ADA recommended reference range Performed By: #### C BC, CMP, A1C WTH eA, LIPID, TSH3 #### [address] Potassium [Moles/Vol] 4.1 mmol/L Normal 3.5-5.1 [facility] Comment on above: Performed By: #### C BC, CMP, A1C WTH eA, LIPID, TSH3 #### [address] Protein [Mass/Vol] 6.4 g/dL Normal 6.4-8.9 The On license of [facility] Comment on above: Performed By: #### C BC, CMP, A1C WTH eA, LIPID, TSH3 #### [facility] [address] [place] [address] [place] Sodium [Moles/Vol] 140 mmol/L Normal 136-145 The On license of [facility] Comment on above: Performed By: #### C BC, CMP, A1C WTH eA, LIPID, TSH3 #### [facility] [address] [place] [address] [place] Urea nitrogen [Mass/Vol] 17 mg/dL Normal 7-25 [facility] Comment on above: Performed By: #### C BC, CMP, A1C WTH eA, LIPID, TSH3 #### [facility] [address] [place] [address] [facility] Creatinine [Mass/volume] in Serum or PlasmaOrdered By: Mario Hyman on 07-10-2023 Creatinine [Mass/Vol] 0.73 mg/dL 0.70-1.30 [facility] ECG 12 lead ECGon 07-10-2023 ECG 12 lead ECG [facility] Main [place] [address] [place] [address] Electrocardiograph Report Signed Patient: Angus Auguste MR#: [id number] : 1950 Acct:[id number] Age/Sex: 73 / M ADM Date: 07/10/23 [facility]: Type: [facility] Attending Dr: Mario Hyman DO [...] Mario Hyman DO 07/11/23 0717 Normal [facility] Eosinophils Auto (Bld) [#/Vo l]Ordered By: Mario Hyman on 07-10-2023 Eosinophils (Bld) [#/Vol] 0.0 10*3/uL 0.0-0.45 [facility] Eosinophils/100 WBC Auto (Bl d)Ordered By: Mario Hyman on 07-10-2023 Eosinophils/100 WBC (Bld) 0.4 % . [facility] Erythrocyte distribution wid th Auto (RBC) [Ratio]Ordered By: Mario Hyman on 07-10-2023 Erythrocyte distribution width (RBC) [Ratio] 12.7 % 12.0-14.8 [facility] Globulin Calc (S) [Mass/Vol] Ordered By: Mario Hyman on 07-10-2023 Globulin (S) [Mass/Vol] 2.3 g/dL [facility] Glucose [Mass/volume] in Ser um or PlasmaOrdered By: Mario Hyman on 07-10-2023 Glucose [Mass/Vol] 129 mg/dL 70-100 [facility] Comment on above: ADA recommended refe rence rangeRandom Glucose Reference Range is dependent on time and content of last meal. Glucose of more than 200 mg/dL in a nonstressed, ambulatory subject supports the diagnosis of Diabetes Mellitus. Hematocrit Auto (Bld) [Volum e fraction]Ordered By: Mario Hyman on 07-10-2023 Hematocrit (Bld) [Volume fraction] 40.9 % 38.8-50.0 [facility] Hemoglobin [Mass/volume] in BloodOrdered By: Mario Hyman on 07-10-2023 Hemoglobin (Bld) [Mass/Vol] 13.7 g/dL 13.0-17.0 [facility] Leukocytes [#/volume] correc jonatan for nucleated erythrocytes in Blood by Automated counOrdered By: Mario Hyman on 07-10-2023 WBC corrected for nucl RBC Auto (Bld) [#/Vol] 5.1 10*3/uL 4.1-10.5 [facility] Lipid Panelon 07-10-2023 Cholesterol [Mass/Vol] 146 mg/dL Normal 140-200 [facility] Comment on above: Result Comment: Chol less than 200 mg/dl low risk Chol 201-239 mg/dl borderline risk Chol 240 mg/dl and greater high risk Performed By: #### C BC, CMP, A1C WTH eA, LIPID, TSH3 #### [facility] [address] Cholesterol in HDL [Mass/Vol] 44 mg/dL Normal 23-92 [facility] Comment on above: Result Comment: HDL CHOL ATP-III CLASSIFICATION Cardiovascular Risk HDL > or equal to 60 mg/dL LOW HDL < 40 mg/dL HIGH Performed By: #### C BC, CMP, A1C WTH eA, LIPID, TSH3 #### [facility] [address] Cholesterol.total/Chol esterol in HDL [Mass ratio] 3.3 {ratio} Normal <5.0 [facility] Comment on above: Performed By: #### C BC, CMP, A1C WTH eA, LIPID, TSH3 #### [facility] [address] LDL Cholesterol,Calculated 86 mg/dL Normal 0-100 The [facility] Comment on above: Result Comment: LDL ATP III CLASSIFICATION LDL less than 100 mg/dL Optimal LDL 100-129 mg/dL Near or above optimal LDL 130-159 mg/dL Borderline high LDL 160-189 mg/dL High LDL greater than 189 mg/dL Very high Performed By: #### C BC, CMP, A1C WTH eA, LIPID, TSH3 #### [facility] [address] Triglyceride w/Reflex 82 mg/dL Normal 0-149 [facility] Comment on above: Result Comment: TRIG ATP III CLASSIFICATION TRIG less than 150 mg/dL Normal TRIG 150-199 mg/dL Borderline high TRIG 200-500 mg/dL High TRIG greater than 500 mg/dL Very high Standard traceable to the Center for Disease Conrtrol and Prevention (CDC) test method. Performed By: #### C BC, CMP, A1C WTH eA, LIPID, TSH3 #### [facility] [address] [place] [id number] [facility] VLDL CHOLESTEROL 16 mg/dL Normal [facility] Comment on above: Performed By: #### C BC, CMP, A1C WTH eA, LIPID, TSH3 #### [facility] [address] Lymphocytes Auto (Bld) [#/Vo l]Ordered By: Mario Hyman on 07-10-2023 Lymphocytes (Bld) [#/Vol] 1.2 10*3/uL 1.00-4.8 [facility] Lymphocytes/100 WBC Auto (Bl d)Ordered By: Mario Hyman on 07-10-2023 Lymphocytes/100 WBC (Bld) 23.0 % . [facility] MCH Auto (RBC) [Entitic mass ]Ordered By: Mario Hyman on 07-10-2023 MCH (RBC) [Entitic mass] 30.1 pg 27.5-35.2 [facility] MCHC Auto (RBC) [Mass/Vol]Or dered By: Mario Hyman on 07-10-2023 MCHC (RBC) [Mass/Vol] 33.4 g/dL 32.5-35.6 [facility] MCV Auto (RBC) [Entitic vol] Ordered By: Mario Hyman on 07-10-2023 MCV (RBC) [Entitic vol] 90.2 fL 83.5-101 [facility] Monocytes Auto (Bld) [#/Vol] Ordered By: Mario Hyman on 07-10-2023 Monocytes (Bld) [#/Vol] 0.4 10*3/uL 0.0-0.8 [facility] Monocytes/100 WBC Auto (Bld) Ordered By: Mario Hyman on 07-10-2023 Monocytes/100 WBC (Bld) 8.3 % . [facility] Neutrophils Auto (Bld) [#/Vo l]Ordered By: Mario Hyman on 07-10-2023 Neutrophils (Bld) [#/Vol] 3.4 10*3/uL 1.8-7.7 [facility] Neutrophils/100 WBC Auto (Bl d)Ordered By: Mario Hyman on 07-10-2023 Neutrophils/100 WBC (Bld) 67.2 % . [facility] No Panel InformationOrdered By: Mario Hyman on 07-10-2023 Estimated GFR (CKD-EPI) > 60.0 mL/Min [facility] Creatinine Clearance (Chem N/A [facility] Nucleated erythrocytes [Pres ence] in Blood by Automated countOrdered By: Mario Hyman on 07-10-2023 Nucleated RBC Auto Ql (Bld) 0.5 /100{WBC} 0-0.5 [facility] Platelet mean volume Auto (B ld) [Entitic vol]Ordered By: Mario Hyman on 07-10-2023 Platelet mean volume (Bld) [Entitic vol] 9.6 fL 6.6-10.1 [facility] Platelets Auto (Bld) [#/Vol] Ordered By: Mario Hyman on 07-10-2023 Platelets (Bld) [#/Vol] 148 10*3/uL 150-450 [facility] Potassium [Moles/volume] in Serum or PlasmaOrdered By: Mario Hyman on 07-10-2023 Potassium [Moles/Vol] 4.1 mmol/L 3.5-5.1 [facility] Protein [Mass/volume] in Ser um or PlasmaOrdered By: Mario Hyman on 07-10-2023 Protein [Mass/Vol] 6.4 g/dL 6.4-8.9 [facility] RBC Auto (Bld) [#/Vol]Ordere d By: Mario Hmyan on 07-10-2023 RBC (Bld) [#/Vol] 4.54 10*6/uL 3.90-5.60 [facility] Serum or plasma albumin/glob ulin mass ratioOrdered By: Mario Hyman on 07-10-2023 Albumin/Globulin [Mass ratio] 1.8 {ratio} [facility] Serum or plasma anion gap de terminationOrdered By: Mario Hyman on 07-10-2023 Anion gap [Moles/Vol] 10.3 mmol/L 6.0-15.0 [facility] Serum or plasma high density lipoprotein (HDL) cholesterol measurementOrdered By: Mario Hyman on 07-10-2023 Cholesterol in HDL [Mass/Vol] 44 mg/dL 23-92 [facility] Comment on above: HDL CHOL ATP-III CLA SSIFICATION Cardiovascular RiskHDL > or equal to 60 mg/dL LOWHDL < 40 mg/dL HIGH Serum or plasma total choles terol/high density lipoprotein (HDL) cholesterol mass ratOrdered By: Mario Hyman on 07-10-2023 Cholesterol.total/Chol esterol in HDL [Mass ratio] 3.3 {ratio} <5.0 [facility] Sodium [Moles/volume] in Ser um or PlasmaOrdered By: Mario Hyman on 07-10-2023 Sodium [Moles/Vol] 140 mmol/L 136-145 [facility] Thyroid Stimulating Hormoneo n 07-10-2023 TSH Qn 1.90 m[IU]/L Normal 0.45-5.33 [facility] Comment on above: Result Comment: PERF ORMED BY: [facility] [address] [place] [address] PATHOLOGIST POLICE SERGEANT LIANA SALTER M.D. Performed By: #### C BC, CMP, A1C WTH eA, LIPID, TSH3 #### [facility] [address] Thyrotropin [Units/volume] i n Serum or PlasmaOrdered By: Mario Hyman on 07-10-2023 TSH Qn 1.90 m[IU]/L 0.45-5.33 [facility] Triglyceride [Mass/volume] i n Serum or PlasmaOrdered By: Mario Hyman on 07-10-2023 Triglyceride [Mass/Vol] 82 mg/dL 0-149 [facility] Comment on above: TRIG ATP III CLASSIF ICATIONTRIG less than 150 mg/dL NormalTRIG 150-199 mg/dL Borderline highTRIG 200-500 mg/dL High TRIG greater than 500 mg/dL Very highStandard traceable to the Center for Disease Conrtrol and Prevention (CDC) test method. Urea nitrogen [Mass/volume] in Serum or PlasmaOrdered By: Mario Hyman on 07-10-2023 Urea nitrogen [Mass/Vol] 17 mg/dL 7-25 [facility] WBC Auto (Bld) [#/Vol]Ordere d By: Mario Hyman on 07-10-2023 WBC (Bld) [#/Vol] 5.1 10*3/uL 4.1-10.5 [facility] Consultation Noteon 01-16-20 Consultation Note [id number] IFJenny Fernandez [facility] A1C HEMOGLOBINon 12-20-2022 HbA1c (Bld) [Mass fraction] 5.5 % [employer] Other HbA1c (Bld) [Mass fraction]o n 12-20-20[address] A[address]C [address] [facility] [place] Other Serge 12-20-2022 L --- Specimen: [id number] Received: 12/21/22 Status: SEFERINO Frankpatsy Num: [id number] Spec Type: Surgical Subm Dr: Mario Hyman DO Tissues: A Skin-Other than Cyst, tag, debridement or plastic repair (LT FLANK SUPERIOR) B Skin-Other than Cyst, tag, debridement or plastic repair (LT FLANK INFERIOR) Procedures: HE/2, Gross/Micro L4/2 Age/ Patient Sex Location Account Attending Physician GersonAngus bucio Adryan 72/M [place] [id number] Mario Hyman DO SPEC NUM: [id number] RECD: 12/21/22 STATUS: SEFERINO CUELLAR NUM: [id number] JAIR: 12/20/22 [facility] DR: Mario Hyman DO ENTERED: 12/21/22 SHARON [...] submitted in one cassette labeled A1. Specimen: [id number] Received: 12/21/22 Status: SEFERINO Cuellar Num: [id number] Spec Type: Surgical Subm Dr: Mario Hyman DO Tissues: A Skin-Other than Cyst, tag, debridement or plastic repair (LT FLANK SUPERIOR) B Skin-Other than Cyst, tag, debridement or plastic repair (LT FLANK INFERIOR) Procedures: HE/Liborio, Krissy/Arlette L4/2 Patient: JesusruizAngus [id number] (Continued) Specimen: [id number] Received: 12/21/22 (Continued) Gross Description (Continued) Signed (signature on file) Oscar Novak MD 12/24/22 1443 Specimen: [id number] Received: 12/21/22 Status: SEFERINO Cuellar Num: [id number] Spec Type: Surgical Subm Dr: Mario Hyman DO Tissues: A Skin-Other than Cyst, tag, debridement or plastic repair (LT FLANK SUPERIOR) B Skin-Other than Cyst, tag, debridement or plastic repair (LT FLANK INFERIOR) Procedures: HE/2, Gross/Micro L4/2 Patient: Angus Auguste [id number] (Continued) Specimen: [id number] Received: 12/21/22 (Continued) Gross Description (Continued) B. [...] microscopic examination confirms the diagnosis. CPT Codes 54257n1 Specimen: [id number] Received: 12/21/22 Status: SEFERINO Cuellar Num: [id number] Spec Type: Surgical Subm Dr: Mario Hyman DO Tissues: A Skin-Other than Cyst, tag, debridement or plastic repair (LT FLANK SUPERIOR) B Skin-Other than Cyst, tag, debridement or plastic repair (LT FLANK INFERIOR) Procedures: HE/2, Gross/Micro L4/2 Patient: Angus Auguste (more content not included)... Normal [facility] Creatinine (Bld) [Mass/Vol]O rdered By: Melanie Lopes on 11-05-2022 Creatinine [Mass/Vol] 1.0 mg/dL 0.6-1.3 [facility] Comment on above: ER/ESD physician is notified/shown all ISTAT results.Critical values may be confirmed by laboratory testing ifdeemed necessary by ER attending doctor. MR prostate wo/w jacquelinon 11-05 MR prostate wo/w con [facility] Main [address] [address] MRI Report Signed Patient: Angus Auguste MR#: [id number] : [id number] Acct:[id number] Age/Sex: 72 / M ADM Date: 11/05/22 Loc: MR Room: Type: [facility] Attending Dr: Melanie Lopes MD Copies to: [...] Cuello Jr., DSusanOSusan11/05/2022 1:29 PM Dictation Location: [place] [address] Transcribed By: [facility] 11/05/22 1329 Dictated By: Mati Cuello Jr, DO 11/05/22 1323 Signed By: 11/05/22 1329 Normal [facility] A1C with Estimated Average G [facility] 09-18-2022 Glucose [Mass/Vol] 117 mg/dL Normal The On license of [facility] Comment on above: Order Comment: Reaso n for Exam Type 2 diabetes mellitus with hyperglycemia, without long-te Result Comment: PERF ORMED BY: [place] [address] PATHOLOGIST POLICE SERGEANT LIANA SALTER M.D. Performed By: #### P SATF, A1C [facility] #### [address] HbA1c (Bld) [Mass fraction] 5.7 % High 4.3-5.6 [facility] Comment on above: Order Comment: Reaso n for Exam Type 2 diabetes mellitus with hyperglycemia, without long-te Result Comment: Incr eased risk for diabetes: 5.7 - 6.4 diabetes: >6.4 glycemic control for adults with diabetes: <7.0 Performed By: #### P SATF, A1C WT eA #### [address] PSA Diagnostic (Total Free)o n 09-18-2022 Prostate Spec Ag, Free 0.760 ng/mL Normal T [facility] Comment on above: Order Comment: Reaso n for Exam Elevated PSA Performed By: #### P SATF, A1C WTH eA #### [address] PSA Total (Not a Screen) 7.470 ng/mL High 0.000-4.000 [facility] Comment on above: Order Comment: Reaso n for Exam Elevated PSA Performed By: #### P SATF, A1C WT eA #### [address] PSA,FREE% 10.1 % Normal [facility] Comment on above: Order [...] 10% 20% >25 5% 9% PERFORMED BY: [place] [address] PATHOLOGIST POLICE SERGEANT LIANA SALTER M.D. Performed By: #### P SATF, A1C WT eA #### [place] [id number] [facility] Prostate Specific Ag Free [M ass/volume] in Serum or PlasmaOrdered By: Mario Hyman on 09-18-2022 Free PSA [Mass/Vol] 0.760 ng/mL [facility] Prostate specific Ag [Mass/v olume] in Serum or PlasmaOrdered By: Mario Hyman on 09-18-2022 Prostate specific Ag [Mass/Vol] 7.470 ng/mL 0.000-4.000 [facility] Serum or plasma free prostat e specific antigen (PSA)/total PSA ratioOrdered By: Mario Hyman on 09-18-2022 Free PSA/Total PSA [Mass fraction] 10.1 % [facility] Comment on above: Based on the work [...] 3 Bilirubin Ql (U) Negative Normal NEGATIVE [facility] Comment on above: Performed By: #### Milka SIMS ICRO #### [facility] [address] [place] [address] Dr. Jennifer Novak Clarity (U) CLEAR Normal CLEAR [facility] Comment on above: Performed By: #### Milka SIMS UMICRO #### [facility] [address] [place] [address] Dr. Jennifer Novak Color (U) LT. YELLOW Normal YELLOW [facility] Comment on above: Performed By: #### Milka SIMS UMICRO #### [facility] [address] [place] [address] Dr. Jennifer Novak ERUAHD A micrscopic examination will be performed if indicated. Normal [facility] Comment on above: Performed By: #### Milka SIMS UMICRO #### [facility] [address] [place] [address] Dr. Jennifer Novak Glucose Ql (U) Negative Normal NEGATIVE [facility] Comment on above: Performed By: #### DANY MOELLERRO #### [facility] [address] [place] [address] Dr. Jennifer Novak Hemoglobin Ql (U) LARGE Abnormal NEGATIVE The [facility] Comment on above: Performed By: #### DANY MOELLERRO #### [facility] [address] [place] [address] Dr. Jennifer Novak Ketones Ql (U) Negative Normal NEGATIVE [facility] Comment on above: Performed By: #### DANY MOELLERRO #### [facility] [address] [place] [address] Dr. Jennifer Novak LEUKOCYTES SMALL Abnormal NEGATIVE [facility] Comment on above: Performed By: #### DANY MOELLERRO #### [facility] [address] [place] [address] Dr. Jennifer Novak Nitrite Ql (U) Negative Normal NEGATIVE [facility] Comment on above: Performed By: #### DANY MOELLERRO #### [facility] [address] [place] [address] Dr. Jennifer Novak pH (U) 7.0 [pH] Normal 5-9 [facility] Comment on above: Performed By: #### DANY MOELLERRO #### [facility] [address] [place] [address] Dr. Jennifer Novak Protein (U) [Mass/Vol] 100 mg/dL Abnormal NEGAT GEMAM/ TRACE [facility] Comment on above: Performed By: #### DANY MOELLERRO #### [facility] [address] [place] [address] Dr. Jennifer Novak SPEC GRAVITY 1.010 Normal 1.005-<=1.0 25 [facility] Comment on above: Performed By: #### DANY MOELLERRO #### [facility] [address] [place] [address] Dr. Jennifer Novak UR MICRO IND INDICATED Normal [facility] Comment on above: Performed By: #### ANNIE MOELLER #### [facility] [address] [place] [address] Dr. Jennifer Novak Urobilinogen Qn (U) 0.2 {Garland'U}/dL Normal 0.2 - 1. 0 [facility] Comment on above: Performed By: #### DANY MOELLERRO #### [facility] [address] [place] [address] Dr. Jennifer Novak URINE MICROSCOPIC ONLYon BACTERIA NONE SEEN Normal NONE SEEN The [facility] Comment on above: Performed By: #### Milka SIMS UMICRO #### [facility] [address] [place] [address] Dr. Jennifer Novak Bacteria identified Cx Nom (U) NOT INDICATED Normal [facility] Comment on above: Performed By: #### Milka SIMS UMICRO #### [facility] [address] [place] [address] Dr. Jennifer Novak CAST NONE SEEN Normal NONE SEEN [facility] Comment on above: Performed By: #### DANY MOELLERRO #### [facility] [address] [place] [address] Dr. Jennifer Novak Crystals LM Nom (Urine sed) NONE SEEN Normal NONE SEEN [facility] Comment on above: Performed By: #### DANY MOELLERRO #### [facility] [address] [place] [address] Dr. Jennifer Novak Epithelial cells LM Ql (Urine sed) NONE SEEN Normal NONE SEEN /RARE [facility] Comment on above: Performed By: #### DANY MOELLERRO #### [facility] [address] [place] [address] Dr. Jennifer Novak MUCOUS NONE SEEN Normal NONE SEEN [facility] Comment on above: Performed By: #### Milka SIMS UMICRO #### [facility] [address] [place] [address] Dr. Jennifer Novak RBC 75-100 Abnormal 0-2 [facility] Comment on above: Performed By: #### Milka SIMS UMICRO #### [facility] [address] [place] [address] Dr. Jennifer Novak WBC 0-2 Abnormal NONE SEEN [facility] Comment on above: Performed By: #### E LEVIANNIE #### [facility] [address] [place] [address] [address] Jennifer Novak CALCULI, URINARYon 3 2,8 Dihydroxyadenine Normal [facility] Comment on above: Performed By: #### C ALCULI #### [facility] [address] [place] [address] [address] Jennifer Novak Ammonium Acid Urate Normal [facility] Comment on above: Performed By: #### C ALCULI #### [facility] [address] [place] [address] [address] Jennifer Novak Bilirubin Ql (U) [facility] Comment on above: Performed By: #### C ALCULI #### [facility] [address] [place] [address] [address] Jennifer Novak Ca Oxalate Dihydrate [facility] Comment on above: Performed By: #### C ALCULI #### [facility] [address] [place] [address] [address] Jennifer Novak CaHPO4 (Brushite) [facility] Comment on above: Performed By: #### C ALCULI #### [facility] [address] [place] [address] [address] Jennifer Novak Calcium Bilirubinate [facility] Comment on above: Performed By: #### C ALCULI #### [facility] [address] [place] [address] [address] Jennifer Novak Calcium Carbonate Normal [facility] Comment on above: Performed By: #### C ALCULI #### [facility] [address] [place] [address] [address] Jennifer Novak Calcium Oxalate Monohydrate 100 % [facility] Comment on above: Performed By: #### C ALCULI #### [facility] [address] [place] [address] [address] Jennifer Novak Calcium Palmitate [facility] Comment on above: Performed By: #### C ALCULI #### [facility] [address] [place] [address] [address] Jennifer Novak Calcium Phosphate [facility] Comment on above: Performed By: #### C ALCULI #### [facility] [address] [place] [address] [address] Jennifer Novak Calcium Stearate Normal [facility] Comment on above: Performed By: #### C ALCULI #### [facility] [address] [place] [address] [address] Jennifer Novak Carbonate Apatite Normal [facility] Comment on above: Performed By: #### C ALCULI #### [facility] [address] [place] [address] [address] Jnenifer Novak Cellular Material [facility] Comment on above: Performed By: #### C ALCULI #### [facility] [address] [place] [address] [address] Jennifer Novak Cholesterol [facility] Comment on above: Performed By: #### C ALCULI #### [facility] [address] [place] [address] [address] Jennifer Novak Color (U) Brown Normal [facility] Comment on above: Performed By: #### C ALCULI #### [facility] [address] [place] [address] [address] Jennifer Novak Comment [facility] Comment on above: Performed By: #### C ALCULI #### [facility] [address] [place] [address] [address] Jennifer Novak Comment: Comment Normal [facility] Comment on above: Result Comment: Phys kimberly questions regarding Calculi Analysis contact [facility] at: [phone]. Performed By: #### C ALCULI #### [facility] [address] [place] [address] [address] Jennifer Novak Composition Comment [facility] Comment on above: Result Comment: Perc entage (Represents the % composition) Performed By: #### C ALCULI #### [facility] [address] [place] [address] [address] Jennifer Novak Cystine Normal [facility] Comment on above: Performed By: #### C ALCULI #### [facility] [address] [place] [address] [address] Jennifer Novak Disclaimer: Comment [facility] Comment on above: Result Comment: This test was developed and its performance characteristics determined by [facility]. It has not been cleared or approved by the Food and Drug Administration. Performed By: #### C ALCULI #### [facility] [address] [place] [address] [address] Jennifer Novak Dried Blood Normal [facility] Comment on above: Performed By: #### C ALCULI #### [facility] [address] [place] [address] [address] Jennifer Novak Drug or Metabolite Normal [facility] Comment on above: Performed By: #### C ALCULI #### [facility] [address] [place] [address] Dr. Jennifer Novak Hydroxyapatite [facility] Comment on above: Performed By: #### C ALCULI #### [facility] [address] [place] [address] Dr. Jenniefr Novak Mg NH4 PO4 (Struvite) [facility] Comment on above: Performed By: #### C ALCULI #### [facility] [address] [place] [address] Dr. Jennifer Novak MgHPO4 (Newberyite) Normal [facility] Comment on above: Performed By: #### C ALCULI #### [facility] [address] [place] [address] Dr. Jennifer Novak Other component(s) Normal [facility] Comment on above: Performed By: #### C ALCULI #### [facility] [address] [place] [address] Dr. Jennifer Novak PDF . Normal [facility] Comment on above: Performed By: #### C ALCULI #### [facility] [address] [place] [address] Dr. Jennifer Novak Photo Comment [facility] Comment on above: Result Comment: Phot ograph will follow under a separate cover Performed By: #### C ALCULI #### [facility] [address] [place] [address] Dr. Jennifer Novak Please note: Comment [facility] Comment on above: Result Comment: Calc zeina report will follow via computer, mail or roguer delivery. Performed By: #### C ALCULI #### [facility] [address] [place] [address] [address] Jennifer Novak Size 5x6 Normal [facility] Comment on above: Result Comment: Mult iple pieces received. Dimensions of the largest piece reported. Performed By: #### C ALCULI #### [facility] [address] [place] [address] [address] Jennifer Novak Sodium Acid Urate Normal [facility] Comment on above: Performed By: #### C ALCULI #### [facility] [address] [place] [address] [address] Jennifer Novak Source Comment [facility] Comment on above: Result Comment: Righ t Ureter Performed By: #### C ALCULI #### [facility] [address] [place] [address] Dr. Jennifer Novak Triamterene [facility] Comment on above: Performed By: #### C ALCULI #### [facility] [address] [place] [address] [address] Jennifer Novak Uric Acid [facility] Comment on above: Performed By: #### C ALCULI #### [facility] [address] [place] [address] [address] Jennifer Novak Uric Acid Dihydrate Normal [facility] Comment on above: Performed By: #### C ALCULI #### [facility] [address] [place] [address] [address] Jennifer Novak Weight 222 mg [facility] Comment on above: Performed By: #### C ALCULI #### [facility] [address] [place] [address] [address] Jennifer Novak Xanthine [facility] Comment on above: Performed By: #### C ALCULI #### [facility] [address] [place] [address] Dr. Jennifer Novak CBC AUTO DIFFon 07-05-2022 BASO # 0.0 103/ul Normal 0.0-0.1 [facility] Comment on above: Performed By: #### C BC #### [facility] [address] [place] [address] [address] Jennifer Novak Basophils/100 WBC (Bld) 0.2 % Normal 0.2-2.0 [facility] Comment on above: Performed By: #### C BC #### [facility] [address] [place] [address] [address] Jennifer Novak EO # 0.0 103/ul Normal 0.0-0.7 [facility] Comment on above: Performed By: #### C BC #### [facility] [address] [place] [address] [address] Jennifer Novak Eosinophils/100 WBC (Bld) 0.0 % Critically low 0.9-7.0 [facility] Comment on above: Performed By: #### C BC #### [facility] [address] [place] [address] Dr. Jennifer Novak Erythrocyte distribution width (RBC) [Ratio] 12.4 % Normal 11.0-15.0 [facility] Comment on above: Performed By: #### C BC #### [facility] [address] [place] [address] Dr. Jennifer Novak Hematocrit (Bld) [Volume fraction] 42.5 % Normal 42.0-54.0 [facility] Comment on above: Performed By: #### C BC #### [facility] [address] [place] [address] Dr. Jennifer Novak Hemoglobin (Bld) [Mass/Vol] 14.0 g/dL Normal 14.0-18.0 [facility] Comment on above: Performed By: #### C BC #### [facility] [address] [place] [address] [address] Jennifer Novak IG # 0.04 10e3/ul Critically high 0.00-0.03 [facility] Comment on above: Performed By: #### C BC #### [facility] [address] [place] [address] [address] Jennifer Novak IG % 0.3 % Normal 0.0-0.5 [facility] Comment on above: Performed By: #### C BC #### [facility] [address] [place] [address] [address] Jennifer Novak LYMPH # 1.1 103/ul Critically low 1.2-3.8 [facility] Comment on above: Performed By: #### C BC #### [facility] [address] [place] [address] Dr. Jennifer Novak Lymphocytes/100 WBC (Bld) 9.1 % Critically low 20.5-60.0 [facility] Comment on above: Performed By: #### C BC #### [facility] [address] [place] [address] Dr. Jennifer Novak MANUAL DIFF REQ NO Normal [facility] Comment on above: Performed By: #### C BC #### [facility] [address] [place] [address] Dr. Jennifer Novak MCH (RBC) [Entitic mass] 30.4 pg Normal 25.9-34.0 [facility] Comment on above: Performed By: #### C BC #### [facility] [address] [place] [address] Dr. Jennifer Novak MCHC (RBC) [Mass/Vol] 32.9 g/dL Normal 29.9-35.2 [facility] Comment on above: Performed By: #### C BC #### [facility] [address] [place] [address] Dr. Jennifer Novak MCV (RBC) [Entitic vol] 92.2 fL Normal 80.0-94.0 [facility] Comment on above: Performed By: #### C BC #### [facility] [address] [place] [address] Dr. Jennifer Novak MONO # 0.8 103/ul Normal 0.3-0.8 [facility] Comment on above: Performed By: #### C BC #### [facility] [address] [place] [address] Dr. Jennifer Novak Monocytes/100 WBC (Bld) 7.0 % Normal 1.7-12.0 [facility] Comment on above: Performed By: #### C BC #### [facility] [address] [address] [address] Jennifer Novak NEUT # 9.6 103/ul Critically high 1.4-6.5 [facility] Comment on above: Performed By: #### C BC #### [facility] [address] [address] [address] Jennifer Novak Neutrophils/100 WBC (Bld) 83.4 % Critically high 43.0-75.0 [facility] Comment on above: Performed By: #### C BC #### [facility] [address] [address] [address] Jennifer Novak Platelet mean volume (Bld) [Entitic vol] 10.8 fL Normal 9.5-13.5 [facility] Comment on above: Performed By: #### C BC #### [facility] [address] [address] [address] Jennifer Novak PLT 196 103/ul Normal 150-450 [facility] Comment on above: Performed By: #### C BC #### [facility] [address] [address] [address] Jennifer Novak RBC 4.61 106/ul Critically low 4.70-6.10 [facility] Comment on above: Performed By: #### C BC #### [facility] [address] [address] [address] Jennifer Novak WBC 11.5 103/ul Critically high 4.0-11.0 [facility] Comment on above: Performed By: #### C BC #### [facility] [address] [address] [address] Jennifer Novak POINT OF CARE GLUCOSEon -0 Glucose [Mass/Vol] 124 mg/dL Critically high 74-106 [facility] Comment on above: Performed By: #### P OCGLUC #### [facility] [address] [address] [address] Jennifer Novak Glucose [Mass/Vol] 259 mg/dL Critically high 74-106 [facility] Comment on above: Performed By: #### C MP #### [facility] [address] [address] [address] Jennifer Novak PROF 14(COMP METB)on 023 Albumin [Mass/Vol] 3.5 g/dL Normal 3.4-5.0 [facility] Comment on above: Performed By: #### C MP #### [facility] [address] [address] [address] Jennifer Novak Albumin/Globulin [Mass ratio] 1.2 {ratio} Normal [facility] Comment on above: Performed By: #### C MP #### [facility] [address] [place] [address] Dr. Jennifer Novak ALP [Catalytic activity/Vol] 61 U/L Normal 46-116 [facility] Comment on above: Performed By: #### C MP #### [facility] [address] [place] [address] Dr. Jennifer Novak ALT [Catalytic activity/Vol] 28 U/L Normal 16-63 [facility] Comment on above: Performed By: #### C MP #### [facility] [address] [place] [address] Dr. Jennifer Novak Anion gap [Moles/Vol] 13.4 mmol/L Normal [facility] Comment on above: Performed By: #### C MP #### [facility] [address] [place] [address] Dr. Jennifer Novak AST [Catalytic activity/Vol] 19 U/L Normal 15-37 [facility] Comment on above: Performed By: #### C MP #### [facility] [address] [place] [address] Dr. Jennifer Novak Bilirubin [Mass/Vol] 0.5 mg/dL Normal 0.2-1.0 [facility] Comment on above: Performed By: #### C MP #### [facility] [address] [place] [address] Dr. Jennifer Novak Calcium [Mass/Vol] 8.7 mg/dL Normal 8.5-10.1 [facility] Comment on above: Performed By: #### C MP #### [facility] [address] [address] [address] Jeninfer Novak Chloride [Moles/Vol] 104 mmol/L Normal 98-107 [facility] Comment on above: Performed By: #### C MP #### [facility] [address] [address] [address] Jennifer Novak CO2 [Moles/Vol] 26.4 mmol/L Normal 21.0-32.0 [facility] Comment on above: Performed By: #### C MP #### [facility] [address] [address] [address] Jennifer Novak Creatinine [Mass/Vol] 0.79 mg/dL Normal 0.70-1.30 [facility] Comment on above: Performed By: #### C MP #### [facility] [address] [place] [address] Dr. Jennifer Novak EGFR-AF HAITIAN >60 Normal >=60 [facility] Comment on above: Performed By: #### C MP #### [facility] [address] [place] [address] Dr. Jennifer Novak EGFR-NON AF HAITIAN >60 Normal >=60 [facility] Comment on above: Performed By: #### C MP #### [facility] [address] [address] [address] Jennifer Novak Globulin (S) [Mass/Vol] 3.0 g/dL Normal [facility] Comment on above: Performed By: #### C MP #### [facility] [address] [address] [address] Jennifer Novak Glucose [Mass/Vol] 157 mg/dL Critically high 74-106 [facility] Comment on above: Performed By: #### C MP #### [facility] [address] [address] [address] Jennifer Novak Potassium [Moles/Vol] 3.8 mmol/L Normal 3.5-5.1 [facility] Comment on above: Performed By: #### C MP #### [facility] [address] [place] [address] Dr. Jennifer Novak Protein [Mass/Vol] 6.5 g/dL Normal 6.4-8.2 [facility] Comment on above: Performed By: #### C MP #### [facility] [address] [place] [address] Dr. Jennifer Novak Sodium [Moles/Vol] 140 mmol/L Normal 136-145 [facility] Comment on above: Performed By: #### C MP #### [facility] [address] [place] [address] Dr. Jennifer Novak Urea nitrogen [Mass/Vol] 20.0 mg/dL Critically high 7.0-18.0 [facility] Comment on above: Performed By: #### C MP #### [facility] [address] [place] [address] Dr. Jennifer Novak Urea nitrogen/Creatinine [Mass ratio] 25.3 mg/mg Normal [facility] Comment on above: Performed By: #### C MP #### [facility] [address] [place] [address] Dr. Jennifer Novak CBC AUTO DIFFon 07-04-2022 BASO # 0.0 103/ul Normal 0.0-0.1 [facility] Comment on above: Performed By: #### C MP #### [facility] [address] [place] [address] Dr. Jennifer Novak Basophils/100 WBC (Bld) 0.1 % Critically low 0.2-2.0 [facility] Comment on above: Performed By: #### C MP #### [facility] [address] [place] [address] Dr. Jennifer Novak EO # 0.0 103/ul Normal 0.0-0.7 [facility] Comment on above: Performed By: #### C MP #### [facility] [address] [place] [address] Dr. Jennifer Novak Eosinophils/100 WBC (Bld) 0.0 % Critically low 0.9-7.0 [facility] Comment on above: Performed By: #### C MP #### [facility] [address] [place] [address] Dr. Jennifer Novak Erythrocyte distribution width (RBC) [Ratio] 12.4 % Normal 11.0-15.0 [facility] Comment on above: Performed By: #### C MP #### [facility] [address] [place] [address] Dr. Jennifer Novak Hematocrit (Bld) [Volume fraction] 44.3 % Normal 42.0-54.0 [facility] Comment on above: Performed By: #### C MP #### [facility] [address] [place] [address] Dr. Jennifer Novak Hemoglobin (Bld) [Mass/Vol] 15.2 g/dL Normal 14.0-18.0 [facility] Comment on above: Performed By: #### C MP #### [facility] [address] [place] [address] Dr. Jennifer Novak IG # 0.03 10e3/ul Normal 0.00-0.03 [facility] Comment on above: Performed By: #### C MP #### [facility] [address] [place] [address] Dr. Jennifer Novak IG % 0.2 % Normal 0.0-0.5 [facility] Comment on above: Performed By: #### C MP #### [facility] [address] [place] [address] Dr. Jennifer Novak LYMPH # 0.5 103/ul Critically low 1.2-3.8 [facility] Comment on above: Performed By: #### C MP #### [facility] [address] [place] [address] Dr. Jennifer Novak Lymphocytes/100 WBC (Bld) 4.3 % Critically low 20.5-60.0 [facility] Comment on above: Performed By: #### C MP #### [facility] [address] [place] [address] Dr. Jennifer Novak MANUAL DIFF REQ NO Normal [facility] Comment on above: Performed By: #### C MP #### [facility] [address] [place] [address] Dr. Jennifer Novak MCH (RBC) [Entitic mass] 31.1 pg Normal 25.9-34.0 [facility] Comment on above: Performed By: #### C MP #### [facility] [address] [place] [address] Dr. Jennifer Novak MCHC (RBC) [Mass/Vol] 34.3 g/dL Normal 29.9-35.2 [facility] Comment on above: Performed By: #### C MP #### [facility] [address] [place] [address] Dr. Jennifer Novak MCV (RBC) [Entitic vol] 90.8 fL Normal 80.0-94.0 [facility] Comment on above: Performed By: #### C MP #### [facility] [address] [place] [address] Dr. Jennifer Novak MONO # 0.2 103/ul Critically low 0.3-0.8 [facility] Comment on above: Performed By: #### C MP #### [facility] [address] [place] [address] Dr. Jennifer Novak Monocytes/100 WBC (Bld) 1.6 % Critically low 1.7-12.0 [facility] Comment on above: Performed By: #### C MP #### [facility] [address] [place] [address] Dr. Jennifer Novak NEUT # 11.5 103/ul Critically high 1.4-6.5 [facility] Comment on above: Performed By: #### C MP #### [facility] [address] [place] [address] Dr. Jennifer Novak Neutrophils/100 WBC (Bld) 93.8 % Critically high 43.0-75.0 [facility] Comment on above: Result Comment: conf irmed analyzer count with manual scan Performed By: #### C MP #### [facility] [address] [place] [address] Dr. Jennifer Novak Platelet mean volume (Bld) [Entitic vol] 10.6 fL Normal 9.5-13.5 [facility] Comment on above: Performed By: #### C MP #### [facility] [address] [place] [address] Dr. Jennifer Novak PLT 189 103/ul Normal 150-450 [facility] Comment on above: Performed By: #### C MP #### [facility] [address] [place] [address] Dr. Jennifer Novak RBC 4.88 106/ul Normal 4.70-6.10 [facility] Comment on above: Performed By: #### C MP #### [facility] [address] [place] [address] Dr. Jennifer Novak WBC 12.2 103/ul Critically high 4.0-11.0 [facility] Comment on above: Performed By: #### C MP #### [facility] [address] [place] [address] Dr. Jennifer Novak [facility] SARS-CoV-2 (COVID-19) RNA ELBA+probe Ql (Unsp spec) Not detected Normal NOT DETECTED [facility] Comment on above: Result Comment: When diagnostic [...] for this test is supported by the [place] of [employer] Service's declaration that [...] used). Performed By: #### C VDTBH #### [facility] [address] [place] [address] Dr. Jennifer Novak POINT OF CARE GLUCOSEon Glucose [Mass/Vol] 113 mg/dL Critically high 74-106 [facility] Comment on above: Performed By: #### P OCGLUC #### [facility] [address] [address] [address] Jennifer Novak PROF CHEM 8 (BAS METB)on Anion gap [Moles/Vol] 14.2 mmol/L Normal [facility] Comment on above: Performed By: #### C MP #### [facility] [address] [address] [address] Jennifer Novak Calcium [Mass/Vol] 9.0 mg/dL Normal 8.5-10.1 [facility] Comment on above: Performed By: #### C MP #### [facility] [address] [address] [address] Jennifer Novak Chloride [Moles/Vol] 102 mmol/L Normal 98-107 [facility] Comment on above: Performed By: #### C MP #### [facility] [address] [place] [address] Dr. Jennifer Novak CO2 [Moles/Vol] 26.9 mmol/L Normal 21.0-32.0 [facility] Comment on above: Performed By: #### C MP #### [facility] [address] [address] [address] Jennifer Novak Creatinine [Mass/Vol] 1.04 mg/dL Normal 0.70-1.30 [facility] Comment on above: Performed By: #### C MP #### [facility] [address] [address] [address] Jennifer Novak EGFR-AF HAITIAN >60 Normal >=60 [facility] Comment on above: Performed By: #### C MP #### [facility] [address] [address] [address] Jennifer Novak EGFR-NON AF HAITIAN >60 Normal >=60 [facility] Comment on above: Performed By: #### C MP #### [facility] [address] [address] [address] Jennifer Novak Glucose [Mass/Vol] 256 mg/dL Critically high 74-106 [facility] Comment on above: Performed By: #### C MP #### [facility] [address] [address] [address] Jennifer Novak Potassium [Moles/Vol] 4.1 mmol/L Normal 3.5-5.1 [facility] Comment on above: Performed By: #### C MP #### [facility] [address] [address] [address] Jennifer Novak Sodium [Moles/Vol] 139 mmol/L Normal 136-145 [facility] Comment on above: Performed By: #### C MP #### [facility] [address] [address] [address] Jennifer Novak Urea nitrogen [Mass/Vol] 18.0 mg/dL Normal 7.0-18.0 [facility] Comment on above: Performed By: #### C MP #### [facility] [address] [place] [address] Dr. Jennifer Novak Urea nitrogen/Creatinine [Mass ratio] 17.3 mg/mg Normal [facility] Comment on above: Performed By: #### C MP #### [facility] [address] [place] [address] Dr. Jennifer Novak PROTIMEon 07-04-2022 INR Coag (PPP) [Relative time] 1.00 {INR} Normal [facility] Comment on above: Performed By: #### P TT, PT #### [facility] [address] [place] [address] Dr. Jennifer Novak INR GUIDELINES SEE BELOW Normal [facility] Comment on above: Result Comment: KAREEM RED INR: 2.0 - 3.0 CONDITIONS NOT LISTED BELOW 2.5 - 3.5 FOR PROSTHETIC HEART VALVE REPLACEMENT 2.5 - 3.5 RECURRENT THROMBOSIS Performed By: #### P TT, PT #### [facility] [address] [place] [address] Dr. Jennifer Novak PT Coag (PPP) [Time] 10.6 s Normal 9.0-11.6 [facility] Comment on above: Performed By: #### P TT, PT #### [facility] [address] [place] [address] Dr. Jennifer Novak PTTon 07-04-2022 aPTT Coag (Bld) [Time] 25.4 s Normal 22.3-36.2 [facility] Comment on above: Performed By: #### C MP #### [facility] [address] [place] [address] Dr. Jennifer Novak PROTIMEon 07-02-2022 INR Coag (PPP) [Relative time] 0.97 {INR} Normal [facility] Comment on above: Performed By: #### C MP #### [facility] [address] [place] [address] Dr. Jennifer Novak INR GUIDELINES SEE BELOW Normal [facility] Comment on above: Result Comment: KAREEM RED INR: 2.0 - 3.0 CONDITIONS NOT LISTED BELOW 2.5 - 3.5 FOR PROSTHETIC HEART VALVE REPLACEMENT 2.5 - 3.5 RECURRENT THROMBOSIS Performed By: #### C MP #### [facility] [address] [place] [address] Dr. Jennifer Novak PT Coag (PPP) [Time] 10.3 s Normal 9.0-11.6 [facility] Comment on above: Performed By: #### C MP #### [facility] [address] [place] [address] Dr. Jennifer Novak PTTon 07-02-2022 aPTT Coag (Bld) [Time] 27.0 s Normal 22.3-36.2 [facility] Comment on above: Performed By: #### C MP #### [facility] [address] [place] [address] Dr. Jennifer Novak Alanine aminotransferase [En zymatic activity/volume] in Serum or PlasmaOrdered By: Mario Hyman on 06-11-2022 ALT [Catalytic activity/Vol] 27 U/L 7-52 [facility] Albumin [Mass/volume] in Ser um or Plasma by Bromocresol green (BCG) dye binding methoOrdered By: Mario Hyman on 06-11-2022 Albumin BCG dye [Mass/Vol] 4.4 g/dL 3.5-5.7 [facility] Alkaline phosphatase [Enzyma tic activity/volume] in Serum or PlasmaOrdered By: Mario Hyman on 06-11-2022 ALP [Catalytic activity/Vol] 57 U/L 34-104 [facility] Aspartate aminotransferase [ Enzymatic activity/volume] in Serum or PlasmaOrdered By: Mario Hyman on 06-11-2022 AST [Catalytic activity/Vol] 21 U/L 13-39 [facility] Basophils Auto (Bld) [#/Vol] Ordered By: Mario Hyman on 06-11-2022 Basophils (Bld) [#/Vol] 0.0 10*3/uL 0.0-0.2 [facility] Basophils/100 WBC Auto (Bld) Ordered By: Mario Hyman on 06-11-2022 Basophils/100 WBC (Bld) 0.8 % . [facility] Bilirubin.total [Mass/volume ] in Serum or PlasmaOrdered By: Mario Hyman on 06-11-2022 Bilirubin [Mass/Vol] 0.9 mg/dL 0.3-1.0 [facility] Calcium [Mass/volume] in Ser um or PlasmaOrdered By: Mario Hyman on 06-11-2022 Calcium [Mass/Vol] 8.9 mg/dL 8.6-10.3 [facility] Carbon dioxide, total [Moles /volume] in Serum or PlasmaOrdered By: Mario Hyman on 06-11-2022 CO2 [Moles/Vol] 26.7 mmol/L 21.0-31.0 [facility] Chloride [Moles/volume] in S eder or PlasmaOrdered By: Mario Hyman on 06-11-2022 Chloride [Moles/Vol] 105 mmol/L 98-107 [facility] Cholesterol [Mass/volume] in Serum or PlasmaOrdered By: Mario Hyman on 06-11-2022 Cholesterol [Mass/Vol] 183 mg/dL 140-200 [facility] Comment on above: Chol less than 200 m g/dl low riskChol 201-239 mg/dl borderline riskChol 240 mg/dl and greater high risk Cholesterol in LDL Calc [Mas s/Vol]Ordered By: Mario Hyman on 06-11-2022 Cholesterol in LDL [Mass/Vol] 114 mg/dL 0-100 [facility] Comment on above: LDL ATP III CLASSIFI CATIONLDL less than 100 mg/dL OptimalLDL 100-129 mg/dL Near or above optimalLDL 130-159 mg/dL Borderline highLDL 160-189 mg/dL HighLDL greater than 189 mg/dL Very high Cholesterol in VLDL Calc [Ma ss/Vol]Ordered By: Mario Hyman on 06-11-2022 Cholesterol in VLDL [Mass/Vol] 26 mg/dL [facility] Creatinine [Mass/volume] in Serum or PlasmaOrdered By: Mario Hyman on 06-11-2022 Creatinine [Mass/Vol] 1.02 mg/dL 0.70-1.30 [facility] Eosinophils Auto (Bld) [#/Vo l]Ordered By: Mario Hyman on 06-11-2022 Eosinophils (Bld) [#/Vol] 0.0 10*3/uL 0.0-0.45 [facility] Eosinophils/100 WBC Auto (Bl d)Ordered By: Mario Hyman on 06-11-2022 Eosinophils/100 WBC (Bld) 0.0 % . [facility] Erythrocyte distribution wid th Auto (RBC) [Ratio]Ordered By: Mario Hyman on 06-11-2022 Erythrocyte distribution width (RBC) [Ratio] 13.2 % 12.0-14.8 [facility] Globulin Calc (S) [Mass/Vol] Ordered By: Mario Hyman on 06-11-2022 Globulin (S) [Mass/Vol] 2.1 g/dL [facility] Glucose [Mass/volume] in Ser um or PlasmaOrdered By: Mario Hyman on 06-11-2022 Glucose [Mass/Vol] 125 mg/dL 74-109 [facility] Comment on above: ADA recommended refe rence rangeRandom Glucose Reference Range is dependent on time and content of last meal. Glucose of more than 200 mg/dL in a nonstressed, ambulatory subject supports the diagnosis of Diabetes Mellitus. Hematocrit Auto (Bld) [Volum e fraction]Ordered By: Mario Hyman on 06-11-2022 Hematocrit (Bld) [Volume fraction] 40.5 % 38.8-50.0 [facility] Hemoglobin [Mass/volume] in BloodOrdered By: Mario Hyman on 06-11-2022 Hemoglobin (Bld) [Mass/Vol] 13.7 g/dL 13.0-17.0 [facility] - Chemistry and C hemistry - challengeOrdered By: Mario Hyman on 06-11-2022 GFR/1.73 sq M.predicted MDRD (S/P/Bld) [Vol rate/Area] mL/min/{1.73_m2} [facility] Leukocytes [#/volume] correc jonatan for nucleated erythrocytes in Blood by Automated counOrdered By: Mario Hyman on 06-11-2022 WBC corrected for nucl RBC Auto (Bld) [#/Vol] 4.9 10*3/uL 4.1-10.5 [facility] Lymphocytes Auto (Bld) [#/Vo l]Ordered By: Mario Hyman on 06-11-2022 Lymphocytes (Bld) [#/Vol] 1.2 10*3/uL 1.00-4.8 [facility] Lymphocytes/100 WBC Auto (Bl d)Ordered By: Mario Hyman on 06-11-2022 Lymphocytes/100 WBC (Bld) 24.9 % . [facility] MCH Auto (RBC) [Entitic mass ]Ordered By: Mario Hyman on 06-11-2022 MCH (RBC) [Entitic mass] 30.5 pg 27.5-35.2 [facility] MCHC Auto (RBC) [Mass/Vol]Or dered By: Mario Hyman on 06-11-2022 MCHC (RBC) [Mass/Vol] 33.8 g/dL 32.5-35.6 [facility] MCV Auto (RBC) [Entitic vol] Ordered By: Mario Hyman on 06-11-2022 MCV (RBC) [Entitic vol] 90.3 fL 83.5-101 [facility] Monocytes Auto (Bld) [#/Vol] Ordered By: Mario Hyman on 06-11-2022 Monocytes (Bld) [#/Vol] 0.5 10*3/uL 0.0-0.8 [facility] Monocytes/100 WBC Auto (Bld) Ordered By: Mario Hyman on 06-11-2022 Monocytes/100 WBC (Bld) 9.4 % . [facility] Neutrophils Auto (Bld) [#/Vo l]Ordered By: Mario Hyman on 06-11-2022 Neutrophils (Bld) [#/Vol] 3.2 10*3/uL 1.8-7.7 [facility] Neutrophils/100 WBC Auto (Bl d)Ordered By: Mario Hyman on 06-11-2022 Neutrophils/100 WBC (Bld) 64.9 % . [facility] No Panel InformationOrdered By: Mario Hyman on 06-11-2022 Pharmacy Creatinine Clearance (Chem N/A [facility] Nucleated erythrocytes [Pres ence] in Blood by Automated countOrdered By: Mario Hyman on 06-11-2022 Nucleated RBC Auto Ql (Bld) 0.1 /100{WBC} 0-0.5 [facility] Platelet mean volume Auto (B ld) [Entitic vol]Ordered By: Mario Hyman on 06-11-2022 Platelet mean volume (Bld) [Entitic vol] 9.2 fL 6.6-10.1 [facility] Platelets Auto (Bld) [#/Vol] Ordered By: Mario Hyman on 06-11-2022 Platelets (Bld) [#/Vol] 168 10*3/uL 150-450 [facility] Potassium [Moles/volume] in Serum or PlasmaOrdered By: Mario Hyman on 06-11-2022 Potassium [Moles/Vol] 4.4 mmol/L 3.5-5.1 [facility] Protein [Mass/volume] in Ser um or PlasmaOrdered By: Mario Hyman on 06-11-2022 Protein [Mass/Vol] 6.5 g/dL 6.4-8.9 [facility] RBC Auto (Bld) [#/Vol]Ordere d By: Mario Hyman on 06-11-2022 RBC (Bld) [#/Vol] 4.49 10*6/uL 3.90-5.60 [facility] Serum or plasma albumin/glob ulin mass ratioOrdered By: Mario Hyman on 06-11-2022 Albumin/Globulin [Mass ratio] 2.1 {ratio} [facility] Serum or plasma anion gap de terminationOrdered By: Mario Hyman on 06-11-2022 Anion gap [Moles/Vol] 10.7 mmol/L 6.0-15.0 [facility] Serum or plasma high density lipoprotein (HDL) cholesterol measurementOrdered By: Mario Hyman on 06-11-2022 Cholesterol in HDL [Mass/Vol] 43 mg/dL 29-71 [facility] Comment on above: HDL CHOL ATP-III CLA SSIFICATION Cardiovascular RiskHDL > or equal to 60 mg/dL LOWHDL < 40 mg/dL HIGH Serum or plasma total choles terol/high density lipoprotein (HDL) cholesterol mass ratOrdered By: Mario Hyman on 06-11-2022 Cholesterol.total/Chol esterol in HDL [Mass ratio] 4.3 {ratio} <5.0 [facility] Sodium [Moles/volume] in Ser um or PlasmaOrdered By: Mario Hyman on 06-11-2022 Sodium [Moles/Vol] 138 mmol/L 136-145 [facility] Thyrotropin [Units/volume] i n Serum or PlasmaOrdered By: Mario Hyman on 06-11-2022 TSH Qn 2.35 m[IU]/L 0.45-5.33 [facility] Triglyceride [Mass/volume] i n Serum or PlasmaOrdered By: Mario Hyman on 06-11-2022 Triglyceride [Mass/Vol] 132 mg/dL 0-149 [facility] Comment on above: TRIG ATP III CLASSIF ICATIONTRIG less than 150 mg/dL NormalTRIG 150-199 mg/dL Borderline highTRIG 200-500 mg/dL High TRIG greater than 500 mg/dL Very highStandard traceable to the Center for Disease Conrtrol and Prevention (CDC) test method. Urea nitrogen [Mass/volume] in Serum or PlasmaOrdered By: Mario Hyman on 06-11-2022 Urea nitrogen [Mass/Vol] 22 mg/dL 7-25 [facility] Vitamin D+Metabolites [Mass/ volume] in Serum or PlasmaOrdered By: Mario Hyman on 06-11-2022 Vitamin D+Metabolites [Mass/Vol] 63.0 ng/mL 30-100 [facility] Comment on above: VITAMIN D STATUS 25( [place])VITAMIN D RANGE (ng/mL) Deficient <20 Insufficient 20 to <30Sufficient 30 to 100Reference: Ginny MF,Steffen NC, Maria De Jesus RUIZ, et al. Evaluation,treatment, and prevention of vitamin D deficiency; an Endocrine Society clinical practice guideline. JCEM. 2010; 96(7):1911-30. WBC Auto (Bld) [#/Vol]Ordere d By: Mario Hyman on 06-11-2022 WBC (Bld) [#/Vol] 4.9 10*3/uL 4.1-10.5 [facility] STR cardiac stress/regularon 06-01-2022 STR cardiac stress/regular [facility] [place] Other STR cardiac stress/regular [facility] [place] Other STR cardiac stress/regular 1111 [facility] [place] Other STR cardiac stress/regular [place] [address] [facility] Other STR cardiac stress/regular Cardiac Stress Test [facility] [place] Other STR cardiac stress/regular Signed [facility] Other STR cardiac stress/regular Patient: Angus Auguste MR#: [id number] [facility] Other STR cardiac stress/regular 234 [facility] Other STR cardiac stress/regular : 1950 Acct:[id number] [facility] Other STR cardiac stress/regular Age/Sex: 72 / M ADM Date: 06/01/22 [facility] Other STR cardiac stress/regular Loc: Room: Type: [facility] Other STR cardiac stress/regular Attending Dr: Mario Hyman DO [facility] Other STR cardiac stress/regular Copies to: Mario Hyman,DO [facility] Other STR cardiac stress/regular Harsha Plascencia MD, [facility] [employer] Other STR cardiac stress/regular Ordering Provider: Mario Hyman, [facility] Other STR cardiac stress/regular Date of Service: 06/01/22 [facility] Other STR cardiac stress/regular STR/STR cardiac stress/regular: Chest pain, unspecified type [facility] Other STR cardiac stress/regular ORDERED BY: Mario Hyman, DO [facility] Other STR cardiac stress/regular A 72-year-old patient with chest pain. [facility] Other STR cardiac stress/regular Resting EKG revealed normal sinus rhythm with a heart rate of 79 beats per minute. Resting blood [facility] Other STR cardiac stress/regular pressure 120/80 mmHg. [facility] Other STR cardiac stress/regular The patient was exercised on a Tomi protocol for 6 minutes, achieving a maximum heart rate of 137 [facility] Other STR cardiac stress/regular beats per minute. This represented 85% of predicted maximum heart rate. The blood pressure elijah to [employer] Other STR cardiac stress/regular 200/85 mmHg. The patient achieved maximum workload of 7 METs. The test ended due to leg fatigue. [facility] Other STR cardiac stress/regular During exercise, no ischemic EKG changes were noted. The patient had no symptoms of chest pain and [facility] Other STR cardiac stress/regular no cardiac arrhythmias were noted. The patient demonstrated appropriate heart rate recovery. [facility] Other STR cardiac stress/regular CONCLUSION: [facility] Other STR cardiac stress/regular 1. Normal exercise tolerance test after completing 6 minutes on a Tomi protocol, achieving 7 [facility] Other STR cardiac stress/regular METs and 85% of predicted maximum heart rate. [facility] Other STR cardiac stress/regular 2. No chest pain or cardiac arrhythmias induced by exercise. [facility] Other STR cardiac stress/regular 3. No ischemic EKG changes noted with exercise. [facility] Other STR cardiac stress/regular 4. Fair exercise tolerance for age with normal heart rate recovery and achievement of Yanes [facility] Other STR cardiac stress/regular treadmill score of 6+. No previous studies are available for comparison. [facility] Other STR cardiac stress/regular Transcribed By: NTS 06/01/22 1450 [facility] Other STR cardiac stress/regular Dictated By: Harsha Plascencia MD, [facility] 06/01/22 1356 [facility] Other STR cardiac stress/regular Signed By: [facility] Other STR cardiac stress/regular 06/03/22 1248 [facility] Other No Panel InformationOrdered By: Melanie Lopes on 04-27-2022 Prostate Specific Antigen Total 6.560 ng/mL 0.000-4.000 [facility] Prostate Specific Ag Free [M ass/volume] in Serum or PlasmaOrdered By: Melanie Lopes on 04-27-2022 Free PSA [Mass/Vol] 0.980 ng/mL [facility] Serum or plasma free prostat e specific antigen (PSA)/total PSA ratioOrdered By: Melanie Lopes on 04-27-2022 Free PSA/Total PSA [Mass fraction] 14.0 % [facility] Comment on above: Based on the work [...] on 12-06-2021 Testosterone [Mass/Vol] 2.69 ng/mL 1.75-7.81 [facility] A1C HEMOGLOBINon 11-03-2021 HbA1c (Bld) [Mass fraction] 6.2 % [facility] [place] Other C reactive protein [Mass/vol ume] in Serum or PlasmaOrdered By: Mario Hyman on 11-03-2021 CRP [Mass/Vol] 0.6 mg/dL 0.0-1.0 [facility] C-Reactive Proteinon 022 C-Reactive Protein 0.6 mg/dL Normal 0.0-1.0 mg/dL [facility] [place] Other Erythrocyte Sedimentation Ra duane 11-03-2021 ESR (Bld) [Velocity] 19 mm/h Normal 0-19 [facility] [place] Other Erythrocyte sedimentation ra te by Photometric methodOrdered By: Mario Hyman on 11-03-2021 ESR Photometric method (Bld) [Velocity] 19 mm/hr 0-19 [facility] Free testosterone measuremen t by LC-MS/MSOrdered By: Mario Hyman on 11-03-2021 Testosterone Free [Mass/Vol] 4.8 pg/mL 6.6-18.1 [facility] Comment on above: Performed at: [facility] [address], [place] [id number] Veterinary Laboratory Diagnostician: Toi Hernandez PhD, Phone: [phone] Performed at: [facility] [address] [id number] Veterinary Laboratory Diagnostician: Iain Jauregui MD, Phone: [phone] Performed at: [facility] [address], [place] [id number] Director: Toi Hernandez PhD, Phone: [phone] at: [facility] [address] [id number] Director: Iain Jauregui MD, Phone: [phone] HbA1c (Bld) [Mass fraction]o n 11-03-2021 A1C HEMOGLOBIN [facility] Other Laboratory - Chemistry and C hemistry - challengeOrdered By: Mario Hyman on 11-03-2021 Testosterone [Mass/Vol] 296 ng/dL 264-881 [facility] Comment on above: Adult male reference interval is based on a population of healthy nonobese males (BMI <30) between 19 and 39 years old. [facility] Hospital[facility], et.al. JCEM 2017,102;0369-3567. PMID: [id number]. Adult male reference interval is based on a population ofhealthy nonobese males (BMI <30) between 19 and 39 yearsold. Travison, et.al. JCEM 2017,102;4159-0162. PMID:58299869. Serum homogeneous pattern an tinuclear antibody (MONISHA) titerOrdered By: Mario Hyman on 11-03-2021 Homogenous nuclear Ab pattern (S) [Titer] N/A [facility] Serum nuclear antibody titer Ordered By: Mario Hyman on 11-03-2021 Nuclear Ab (S) [Titer] Negative . [facility] Comment on above: Negative <1:80 Borderline 1:80 Positive >1:80 ICAP nomenclature: AC-0 For more information about Hep-2 cell patterns use ANApatterns.org, the official website for the International Consensus on Antinuclear Antibody (MONISHA) Patterns (ICAP). Performed at: - [facility] [address], [place] [id number] Veterinary Laboratory Diagnostician: Toi Hernandez PhD, Phone: [phone] Negative <1:80 Deirdre joseph 1:80 Positive >1:80ICAP nomenclature: AC-0For more information about Hep-2 cell patterns useANApatterns.org, the official website for theInternational Consensus on Antinuclear Antibody (MONISHA)Patterns (ICAP).Performed at: [facility] [address] [id number] Director: Toi Hernandez PhD, Phone: [phone] Serum or plasma rheumatoid f actor measurement (units/volume)Ordered By: Mario Hyman on 11-03-2021 Rheumatoid factor Qn [IU]/mL <14.0 [facility] Comment on above: Performed at: [facility] [address], [place] [id number] Veterinary Laboratory Diagnostician: Toi Hernandez PhD, Phone: [phone] Performed at: [facility] [address] [id number] Director: Toi Hernandez PhD, Phone: [phone] Serum or plasma uric acid me asurement (mass/volume)Ordered By: Mario Hyman on 11-03-2021 Urate [Mass/Vol] 6.5 mg/dL 2.6-7.2 [facility] Uric Acidon 11-03-2021 Urate [Mass/Vol] 6.1314616 mg/dL Normal 2.6-7.2 mg/dL [facility] Other US KIDNEYSon 10-25-2021 US KIDNEYS EXAMINATION: US [facility] HISTORY: H/O: urinary stone , flank pain [...] by: SOWMYA FLORES Date: 2021-10-25 17:34 Normal [facility] XR KUB 1 VIEWon 10-25-2021 XR KUB [...] by: SOWMYA FLORES Date: 2021-10-25 17:39 Normal [facility] Creatinine (Bld) [Mass/Vol]O rdered By: Melanie Lopes on 10-24-2021 Creatinine [Mass/Vol] 0.7 mg/dL 0.6-1.3 [facility] Comment on above: ER/ESD physician is notified/shown all ISTAT results. Critical values may be confirmed by laboratory testing if deemed necessary by ER attending doctor. ER/ESD physician is notified/shown all ISTAT results.Critical values may be confirmed by laboratory testing ifdeemed necessary by ER attending doctor. No Panel InformationOrdered By: Melanie Lopes on 10-24-2021 POC Estimated GFR > 60 [facility] Comment on above: GFR estimated refere nce range: According to KDOQI guidelines, <60 ml/min/1.73m2 is sufficient to diagnose a patient with chronic kidney disease. 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 Severe right lateral compartment osteoarthritis. Curb Worker: LEROY Transcribe Date/Time: Dec 04 2019 10:02A Dictated by : DEYVI ANNE MD This examination was interpreted and the report reviewed and electronically signed by: DEYVI ANNE MD on Dec 04 2019 10:03AM [facility] DIVISION OF RADIOLOGY * * *Final Report* [...] erosions. DIVISION OF RADIOLOGY Provider, Darcy vang Drury - 12/04/2019 * * *Final Report* * [...] compartment osteoarthritis. Severe right lateral compartment osteoarthritis. Curb Worker: PSCB Transcribe Date/Time: Dec 04 2019 10:02A Dictated by : DEYVI ANNE MD This examination was interpreted and the report reviewed and electronically signed by: DEYVI ANNE MD on Dec 04 2019 10:03AM EST [facility] Radiology Study observation (narrative) [facility] XR Knee - bilateral 4 ViewsO rdered By: Ccf Provider on 12-04-2019 [facility] Vital Signs Date Time Vital Sign Value Performing Clinician Facility 01-21-2024 13:59-0400 Body height 170.18 cm [facility] 01-21-2024 13:59-0400 Body mass index (BMI) [Ratio] 33.2 kg/m2 [facility] 01-21-2024 13:59-0400 Body weight 96.16 kg [facility] 01-21-2024 13:59-0400 Diastolic blood pressure 82 mm[Hg] [facility] 01-21-2024 13:59-0400 Heart rate 80 /min [facility] 01-21-2024 13:59-0400 Respiratory rate 16 /min [facility] 01-21-2024 13:59-0400 SaO2% (BldA) [Mass fraction] 95 % [facility] 01-21-2024 13:59-0400 Systolic blood pressure 118 mm[Hg] [facility] 12-04-2023 10:03-0400 Blood Pressure Location Melanie Lue [facility] 12-04-2023 10:03-0400 Diastolic blood pressure 84 mm[Hg] Melanie Lue [facility] 12-04-2023 10:03-0400 Heart rate 74 /min Melanie Lue [facility] 12-04-2023 10:03-0400 Respiratory rate 16 /min Melanie Lue [facility] 12-04-2023 10:03-0400 Systolic blood pressure 121 mm[Hg] Melanie Lue [facility] 07-10-2023 10:39-0400 Body height 170.18 cm DO Mario Hyman Work Phone: [facility] 07-10-2023 10:39-0400 Body mass index (BMI) [Ratio] 34.1 kg/m2 DO Mario Hyman Work Phone: [facility] 07-10-2023 10:39-0400 Body weight 98.88 kg DO Mario Hyman Work Phone: [facility] 07-10-2023 10:39-0400 Diastolic blood pressure 70 mm[Hg] DO Mario Hyman Work Phone: [facility] 07-10-2023 10:39-0400 Heart rate 69 /min DO Mario Hyman Work Phone: [facility] 07-10-2023 10:39-0400 Respiratory rate 18 /min DO Mario Hyman Work Phone: [facility] 07-10-2023 10:39-0400 SaO2% (BldA) [Mass fraction] 94 % DO Mario Hyman Work Phone: [facility] 07-10-2023 10:39-0400 Systolic blood pressure 114 mm[Hg] DO Mario Hyman Work Phone: [facility] 12-20-2022 16:00-0400 Body height 175.26 cm Mario Hyman Other [facility] Other 12-20-2022 16:00-0400 Body mass index (BMI) [Ratio] 32.48 kg/m2 Mario Hyman Other [facility] Other 12-20-2022 16:00-0400 Body weight 99.79 kg Mario Hyman Other [facility] Other 12-20-2022 16:00-0400 Diastolic blood pressure 64 mm[Hg] Mario Yenni Other [facility] Other 12-20-2022 16:00-0400 Respiratory rate 16 /min Mario Hyman Other [facility] Other 12-20-2022 16:00-0400 SaO2% (BldA) [Mass fraction] 95 % Mario Hyman Other [facility] Other 12-20-2022 16:00-0400 Systolic blood pressure 124 mm[Hg] Mario Hyman Other [facility] [place] Other 11-28-2022 07:49-0400 Blood Pressure Location Melanie Lue [facility] 11-28-2022 07:49-0400 Diastolic blood pressure 84 mm[Hg] Melanie Lue [facility] 11-28-2022 07:49-0400 Heart rate 70 /min Melanie Lue [facility] 11-28-2022 07:49-0400 Respiratory rate 16 /min Melanie Lue [facility] 11-28-2022 07:49-0400 Systolic blood pressure 130 mm[Hg] Melanie Lue [facility] 11-05-2022 07:28-0400 Body height 170.18 cm DO Mario Hyman Work Phone: [facility] 11-05-2022 07:28-0400 Body weight 226 kg DO Mario Hyman Work Phone: [facility] 10-03-2022 07:55-0400 Blood Pressure Location Melanie Lue [facility] 10-03-2022 07:55-0400 Diastolic blood pressure 79 mm[Hg] Melanie Lue [facility] 10-03-2022 07:55-0400 Heart rate 81 /min Melanie Lue [facility] 10-03-2022 07:55-0400 Respiratory rate 16 /min Melanie Lue [facility] 10-03-2022 07:55-0400 Systolic blood pressure 125 mm[Hg] Melanie Lue [facility] 09-21-2022 07:45-0400 Body height 175.26 cm Mario Hyman Other [facility] Other 09-21-2022 07:45-0400 Body mass index (BMI) [Ratio] 33.52 kg/m2 Mario Hyman Other [facility] Other 09-21-2022 07:45-0400 Body weight 102.97 kg Mario Hyman Other [facility] Other 09-21-2022 07:45-0400 Diastolic blood pressure 84 mm[Hg] Mario Hyman Other [facility] Other 09-21-2022 07:45-0400 Respiratory rate 16 /min Mario Hyman Other [facility] Other 09-21-2022 07:45-0400 SaO2% (BldA) [Mass fraction] 96 % Mario Hyman Other [facility] Other 09-21-2022 07:45-0400 Systolic blood pressure 134 mm[Hg] Mario Hyman Other [facility] Other 07-12-2022 07:49-0400 Blood Pressure Location Melanie Lue [facility] 07-12-2022 07:49-0400 Diastolic blood pressure 84 mm[Hg] Melanie Lue [facility] 07-12-2022 07:49-0400 Heart rate 75 /min Melanie Lue [facility] 07-12-2022 07:49-0400 Respiratory rate 16 /min Melanie Lue [facility] 07-12-2022 07:49-0400 Systolic blood pressure 127 mm[Hg] Melanie Lue [facility] 06-25-2022 15:01-0400 Blood Pressure Location Melanie Lue [facility] 06-25-2022 15:01-0400 Diastolic blood pressure 76 mm[Hg] Melanie Lue [facility] 06-25-2022 15:01-0400 Heart rate 77 /min Melanie Lue [facility] 06-25-2022 15:01-0400 Respiratory rate 16 /min Melanie Lue [facility] 06-25-2022 15:01-0400 Systolic blood pressure 135 mm[Hg] Melanie Lue [facility] 06-18-2022 09:00-0400 Body height 175.26 cm Mario Hyman Other [facility] [place] Other 06-18-2022 09:00-0400 Body mass index (BMI) [Ratio] 35.29 kg/m2 Mario Hyman Other [facility] Other 06-18-2022 09:00-0400 Body weight 108.41 kg Mario Hyman Other [facility] Other 06-18-2022 09:00-0400 Diastolic blood pressure 76 mm[Hg] Mario Yenni Other [facility] Other 06-18-2022 09:00-0400 Respiratory rate 16 /min Mario Yenni Other [facility] Other 06-18-2022 09:00-0400 SaO2% (BldA) [Mass fraction] 96 % Mario Yenni Other [facility] Other 06-18-2022 09:00-0400 Systolic blood pressure 120 mm[Hg] Mario Hyman Other [facility] Other 05-09-2022 08:32-0500 Blood Pressure Location Melanie Lue [facility] 05-09-2022 08:32-0500 Diastolic blood pressure 79 mm[Hg] Melanie Lue [facility] 05-09-2022 08:32-0500 Heart rate 68 /min Melanie Lue [facility] 05-09-2022 08:32-0500 Respiratory rate 16 /min Melanie Lue [facility] 05-09-2022 08:32-0500 Systolic blood pressure 138 mm[Hg] Melanie Lue [facility] 11-03-2021 09:15-0400 Body height 175.26 cm Mario Hyman Other [facility] Other 11-03-2021 09:15-0400 Body mass index (BMI) [Ratio] 35.38 kg/m2 Mario Hyman Other [facility] Other 11-03-2021 09:15-0400 Body weight 108.68 kg Mario Jackynorah Other [facility] Other 11-03-2021 09:15-0400 Diastolic blood pressure 78 mm[Hg] Mario Hyman Other [facility] Other 11-03-2021 09:15-0400 Respiratory rate 16 /min Mario Hyman Other [facility] Other 11-03-2021 09:15-0400 SaO2% (BldA) [Mass fraction] 95 % Mario Hyman Other [facility] Other 11-03-2021 09:15-0400 Systolic blood pressure 138 mm[Hg] Mario Hymna Other [facility] Other 11-01-2021 09:58-0400 Blood Pressure Location Melanie Lue [facility] 11-01-2021 09:58-0400 Diastolic blood pressure 95 mm[Hg] Melanie Lue [facility] 11-01-2021 09:58-0400 Heart rate 74 /min [facility] 11-01-2021 09:58-0400 Respiratory rate 16 /min [facility] 11-01-2021 09:58-0400 Systolic blood pressure 149 mm[Hg] [facility] 09-20-2021 09:28-0400 Blood Pressure Location Melanie Lue [facility] 09-20-2021 09:28-0400 Diastolic blood pressure 89 mm[Hg] [facility] 09-20-2021 09:28-0400 Heart rate 79 /min [facility] 09-20-2021 09:28-0400 Systolic blood pressure 137 mm[Hg] [facility] 09-01-2021 08:43-0400 Diastolic blood pressure 84 mm[Hg] DO Mario Kuns Work Phone: [facility] 09-01-2021 08:43-0400 Heart rate 68 /min DO Mario Kuns Work Phone: [facility] 09-01-2021 08:43-0400 Respiratory rate 20 /min DO Mario Kuns Work Phone: [facility] 09-01-2021 08:43-0400 Systolic blood pressure 139 mm[Hg] DO Mario Kuns Work Phone: [facility] 09-01-2021 08:30-0400 SaO2% (BldA) [Mass fraction] 96 % DO Mario Hyman Work Phone: [facility] 09-01-2021 06:28-0400 Body height 170.18 cm DO Mario Hyman Work Phone: [facility] 09-01-2021 06:28-0400 Body mass index (BMI) [Ratio] 36 kg/m2 DO Mario Hyman Work Phone: [facility] 09-01-2021 06:28-0400 Body temperature 98.4 [degF] DO Mario Hyman Work Phone: [facility] 09-01-2021 06:28-0400 Body weight 104.32 kg DO Mario Hyman Work Phone: [facility] Encounters Encounter Date Encounter Type Care Provider Facility Start: 02-05-2024 ambulatory Melanie Lopes Facility:[facility] Start: 01-21-2024 End: 01-21-2024 ambulatory [facility] Work Phone: Start: 01-21-2024 End: 01-21-2024 Patient encounter procedure [facility] [place] Work Phone: Start: 12-04-2023 End: 12-04-2023 ambulatory Melanie Lopes Facility:JEAN[facility]bo[facility] Start: 12-04-2023 End: 12-04-2023 Patient encounter procedure Melanie Lopes [facility] Start: 11-27-2023 Non-patient / Non-visit [facility] Work Phone: Start: 07-10-2023 End: 07-10-2023 ambulatory Mario Hyman Facility:[facility] Start: 07-10-2023 Encounter for other preprocedural examination Mario Hyman The [facility] Start: 07-10-2023 Patient encounter status DO Yomi Hyman Work Phone: [facility] Start: 07-10-2023 End: 07-10-2023 ambulatory DO Mario Hyman Work Phone: [facility] Work Phone: Start: 07-10-2023 End: 07-10-2023 Patient encounter procedure DO Mario Hyman Work Phone: [facility] [place] Work Phone: Start: 07-10-2023 End: 07-10-2023 ambulatory Mario Hyman Facility:[facility] Start: 07-10-2023 End: 07-10-2023 ambulatory DO Mario Riconorah Work Phone: [facility] Work Phone: Start: 07-10-2023 End: 07-10-2023 Patient encounter procedure DO Mario Hyman Work Phone: [facility] [place] Work Phone: Start: 01-14-2023 ambulatory Mario Hyman Facility:[facility] Start: 12-20-2022 End: 12-20-2022 Departed Referred DO Mariopriscilla Hyman Work Phone: [facility] [place] Work Phone: Start: 12-20-2022 End: 12-20-2022 ambulatory DO Mario Hyman Work Phone: [employer] Other Start: 12-20-2022 Office outpatient vi sit 15 minutes Mario Hyman [facility] [place] Start: 12-19-2022 ambulatory Melanie Lopes Facility:[facility] Start: 11-28-2022 End: 11-28-2022 Patient encounter procedure [facility]opes [facility] Start: 11-14-2022 End: 11-14-2022 ambulatory Mario Hyman Other [employer] Other Start: 11-14-2022 Telephone encounter Mario Hyman [facility] Start: 11-05-2022 End: 11-05-2022 ambulatory Melanie Lopes Facility:[facility] Start: 11-05-2022 End: 11-05-2022 Patient encounter procedure DO Mario Hyman Work Phone: [facility] [place] Work Phone: Start: 10-03-2022 End: 10-03-2022 Patient encounter procedure Melanie Lopes [facility] Start: 09-21-2022 End: 09-21-2022 ambulatory Mario Hyman Other [employer] Other Start: 09-21-2022 Office outpatient vi sit 25 minutes Mario Hyman [facility] Start: 09-18-2022 End: 09-18-2022 ambulatory Mario Hyman Facility:[facility] Start: 09-18-2022 End: 09-18-2022 ambulatory DO Mario Hyman Work Phone: [facility] Work Phone: Start: 09-18-2022 End: 09-18-2022 Patient encounter procedure DO Mario Hyman Work Phone: [facility]-Lab [place] Work Phone: Start: 08-20-2022 ambulatory MELANIE LOPES . Facility: Start: 07-12-2022 End: 07-12-2022 Patient encounter procedure Melanie Lopes [facility] Start: 07-10-2022 End: 07-10-[address] MARIO HYMAN Facility:[facility] Start: 07-06-2022 Encounter for preprocedural cardiovascular examination MELANIE LOPES . [facility] Start: 07-06-2022 Encounter for preprocedural laboratory examination MELANIE LOPES . [facility] Start: 07-05-2022 End: 07-05-[address] MARIO HYMAN Facility:[facility] Start: 07-04-2022 End: 07-04-2022 ambulatory MELANIE LOPES . Facility:[facility] Start: 07-02-2022 End: 07-03-2022 ambulatory MELANIE LOPES . Facility:[facility] Start: 07-02-2022 End: 07-03-2022 Encounter for preprocedural cardiovascular examination MELANIE LOPES . Facility:[facility] Start: 06-25-2022 End: 06-25-2022 Patient encounter procedure Melanie Lopes [facility] Start: 06-18-2022 End: 06-18-2022 ambulatory Mario Hyman Other [employer] [facility] [place] Other Start: 06-18-2022 Office outpatient vi sit 25 minutes Mario Hyman [facility] [place] Start: 06-11-2022 End: 06-11-2022 ambulatory DO Mario Hyman Work Phone: [facility] Work Phone: Start: 06-11-2022 End: 06-11-2022 Patient encounter procedure DO Mario Hyman Work Phone: [facility] [place] Work Phone: Start: 06-01-[address] Mario Hyman Facility:[id number] Start: 06-01-2022 End: 06-01-2022 ambulatory DO Mario Hyman Work Phone: [facility] Work Phone: Start: 06-01-2022 End: 06-01-2022 Patient encounter procedure DO Mario Hyman Work Phone: [facility]-Electrodiagnostics Work Phone: Start: 06-01-[address] Mario Hyman Facility:[id number] Start: 05-17-2022 End: 05-17-2022 ambulatory DO Mario Hyman Work Phone: [facility] Work Phone: Start: 05-17-2022 End: 05-17-2022 Patient encounter procedure DO Mario Hyman Work Phone: [facility]-CT Scan [facility] [place] Work Phone: Start: 05-09-2022 End: 05-09-2022 ambulatory Mario Hyman Other [facility] [place] Other Start: 05-09-2022 Telephone encounter Mario Hyman [facility] [place] Start: 05-09-2022 End: 05-09-2022 Patient encounter procedure Melanie Lopes [facility] Start: 04-27-2022 End: 04-27-2022 Patient encounter procedure DO Mario Hyman Work Phone: [facility] [place] Work Phone: Start: 12-28-[address] Mario Hyman Facility:[facility] Start: 12-27-[address] Mario Hyman Facility:[id number] Start: 12-27-2021 End: 12-27-2021 ambulatory DO Mario Hyman Work Phone: [facility] Work Phone: Start: 12-27-2021 End: 12-27-2021 Patient encounter procedure DO Mario Hyman Work Phone: [facility]-CT Scan [facility] [place] Start: 12-13-2021 End: 12-13-2021 Patient encounter procedure Melanie Lopes [facility] Start: 12-06-2021 End: 12-06-2021 Patient encounter procedure DO Mario Jackynorah Work Phone: [facility] [place] Start: 12-01-2021 End: 12-01-2021 Patient encounter procedure DO Mario Jackynorah Work Phone: [facility]-XRay [facility] [place] Start: 11-27-2021 End: 11-27-2021 Patient encounter procedure DO Mario Hyman Work Phone: [facility]-Respiratory Therapy Start: 11-15-2021 End: 11-15-2021 ambulatory Mario Hyman Other [employer] Other Start: 11-15-2021 Telephone encounter Mario Hyman [facility] [place] Start: 11-03-2021 End: 11-03-2021 ambulatory Mario Hyman Other [employer] Other Start: 11-03-2021 End: 11-03-2021 Patient encounter procedure Mario Hyman [facility] [place] Start: 11-01-2021 End: 11-01-2021 Patient encounter procedure Melanie Lopes [facility] Start: 10-25-2021 End: 10-26-2021 ambulatory MELANIE LOPES . Facility: Start: 10-24-2021 End: 10-24-2021 Patient encounter procedure DO Mario Hyman Work Phone: [facility]-MRI [facility] [place] Start: 09-28-2021 End: 09-28-2021 Patient encounter procedure DO Mario Hyman Work Phone: [facility] [place] Start: 09-20-2021 End: 09-20-2021 Patient encounter procedure Melanie Lopes [facility] Start: 09-01-2021 End: 09-01-2021 Admission to same day surgery center DO Mario Hyman Work Phone: [facility]-Digestive Health Start: 08-21-2021 End: 08-21-2021 ambulatory Mario Hyman Other [employer] Other Start: 08-21-2021 Telephone encounter Mariopriscilla Hyman [facility] Start: 08-18-2021 End: 08-18-2021 ambulatory Mario Hyman Other [employer] Other Start: 08-18-2021 Telephone encounter Mariopriscilla Riconorah [facility] Start: 08-15-2021 End: 08-15-2021 ambulatory Luis M Gramajo Other [employer] Other Start: 08-15-2021 Telephone encounter Lius M Gramajo [facility] Gastroenterology Start: 12-04-2019 End: 12-04-2019 Subsequent hospital visit by physician Sho Daniel Work Phone: Radiology Comment on above: Primary osteoarthrit is of both knees [M17.0] Procedures Date Procedure Procedure Detail Performing Clinician Start: 10-15-2023 Proton therapy Melanie stern Start: 11-21-2022 Ultrasonography guid ed transperineal needle biopsy of prostate Melanie Lopes Start: 11-05-2022 MR prostate wo/w con DO Mairo Hyman Work Phone: Start: 11-05-2022 MRI of prostate Melanie L ue Start: 07-12-2022 Cystoscopy Melanie Lue Start: 07-04-2022 Lithotripsy Melanie Lue Start: 05-17-2022 CT of abdomen and pe lvis without contrast DO Mario Hyman Work Phone: Start: 12-27-2021 CT of chest without contrast DO Mario [facility] Work Phone: Start: 12-01-2021 Plain chest X-ray [...] RSV Vaccine (1 - 1-dose 75+ series) [facility] Start: 12-01-2023 Covid-19 Vaccine ( season) Covid-19 Vaccine ( season) [facility] Start: 12-01-2023 Influenza vaccination Influenza Vaccine (#1) [facility] Start: 07-10-2023 EKG 12 channel panel [facility] Start: 04-01-2023 Advance Directive Discussion Advance Directive Discussion [facility] Start: 12-01-2021 Plain chest X-ray XR chest 2V* [facility] Start: 12-01-2021 End: 12-01-2021 Patient encounter procedure Departed [facility]-XRay [place] Start: 11-27-2021 End: 11-27-2021 Patient encounter procedure Departed [facility]-Respiratory Therapy Start: 11-03-2021 End: 11-03-2021 Patient encounter procedure Departed [facility] [place] Start: 09-01-2021 [facility] Work Phone: Start: 08-29-2021 Diabetes Screening Diabetes Screening [facility] Start: 2015 Pneumococcal Vaccine: 65+ (1 of 1 - PCV) Pneumococcal Vaccine: 65+ (1 of 1 - PCV) [facility] Start: 2000 Shingrix Vaccine (1 of 2) Shingrix Vaccine (1 of 2) [facility] Start: 1995 Screening for malignant neoplasm of colon [facility] Start: 1985 Lipid panel Lipid Screening [facility] Start: 1969 Urine microalbumin profile DTaP,Tdap,Td Vaccine (1 - Tdap) [facility] Start: 1968 Anxiety Screening Anxiety Screening [facility] Start: 1968 Depression Screening Depression Screening [facility] Start: 1968 Hepatitis C screening Hepatitis C Screening [facility] Albumin/Globulin ratio [facility] Anion gap measurement [facility] Basophils [#/volume] in Blood by Automated count [facility] Basophils/100 leukoc ytes in Blood by Automated count [facility] Calculated LDL cholesterol level [facility] Cholesterol.total/Ch oles terol in HDL [Mass Ratio] in Serum or Plasma [facility] Eosinophils/100 leukocytes in Blood by Automated count [facility] Erythrocyte distribu tion width [Ratio] by Automated count [facility] Erythrocytes [#/volu me] in Blood [facility] Globulin [Mass/volum e] in Serum [facility] Glucose measurement estimated from glycated hemoglobin [facility] Glucose measurement estimated from glycated hemoglobin [facility] Hematocrit [Volume Fraction] of Blood [facility] Hemoglobin [Mass/vol ume] in Blood [facility] Hemoglobin A1c/Hemoglobin.total in Blood [facility] Leukocytes [#/volume ] corrected for nucleated erythrocytes in Blood by Automated coun [facility] Leukocytes [#/volume ] in Blood [facility] Lymphocytes [#/volum e] in Blood by Automated count [facility] Lymphocytes/100 leukocytes in Blood by Automated count [facility] MCH [Entitic mass] b y Automated count [facility] MCHC [Mass/volume] b y Automated count [facility] MCV [Entitic volume] by Automated count [facility] Monocytes [#/volume] in Blood by Automated count [facility] Monocytes/100 leukoc ytes in Blood by Automated count [facility] Neutrophils [#/volum e] in Blood by Automated count [facility] Neutrophils/100 leukocytes in Blood by Automated count [facility] Nucleated erythrocyt es [Presence] in Blood by Automated count [facility] Platelet mean volume [Entitic volume] in Blood by Automated count [facility] Platelets [#/volume] in Blood [facility] VLDL cholesterol measurement [facility] Immunizations Immunization Date Immunization Notes Care Provider Jacobo carrillo 05-31-2016 pneumococcal conjuga te vaccine, 13 valent Luis M Gramajo Other [facility] 04-01-2014 pneumococcal polysaccharide vaccine, 23 valent Melanie Lopes [facility] 04-01-2004 influenza virus vaccine, unspecified formulation Melanie Lopes [facility] NEGATED: Highlighted row has not occurred!12-13-2021 SARS-CoV-2 mRNA (tozinameran 5y-11y) vaccine Melanie Lopes [facility] NEGATED: Highlighted row has not occurred!09-20-2021 SARS-CoV-2 mRNA (tozinameran 5y-11y) vaccine Melanie Lopes [facility] Payers Date Payer Category Payer Private Health Insurance [facility] INDEMNITY [id number] 2018-Present [phone] [address] [place] [address] Indemnity [id number] 2013 Medicare MEDICARE MEDICAR E A AND B [id number] 2013-Present [phone] [address] [address] [place] [address] Medicare [id number] 1959 Medicare [id number] 1959 Private Health Insurance [id number] 1959 Self-pay [id number] 1950 Unknown [id number] 2.16.840.1.576048.3.579. 2.356 1950 Unknown [id number] 2.16.840.1.551262.3.579. 2.356 1950 Unknown [id number] 2.16.840.1.499358.3.579. 2.356 1950 Unknown [id number] 2.16.840.1.456629.3.579. 2.593 1950 Unknown [id number] 2.16.840.1.380757.3.579. 2.593 1950 Unknown [id number] 2.16.840.1.915824.3.579. 2.593 1950 Unknown [id number] 2.16.840.1.520662.3.579. 2.593 1950 Unknown [id number] 2.16.840.1.539832.3.579. 2.593 1950 Unknown [id number] 2.16.840.1.675781.3.579. 2.593 1950 Unknown [id number] 2.16.840.1.925251.3.579. 2.727 1950 Unknown [id number] 2.16.840.1.722947.3.579. 2.727 Medicare [id number] Unknown [id number] 2.16.840.1.902569.3.579. 2.531 Unknown [id number] 2.16.840.1.897170.3.579. 2.531 Unknown [id number] 2.16.840.1.491647.3.579. 2.531 Unknown [id number] 2.16.840.1.934200.3.579. 2.531 Unknown [id number] 2.16.840.1.952998.3.579. 2.531 Unknown [id number] 2.16.840.1.822711.3.579. 2.531 Social History Date Type Detail Facility Start: 09-20-2021 End: 01-14-2023 Tobacco smoking status Never smoked tobacco (finding) [employer] Other Tobacco smoking status Never [facility] Sex Assigned At Male [employer] Other Start: 1950 Sex Assigned At Male [facility] Tobacco smoking status IDIS Tobacco smoking consumption unknown [facility] Start: 1950 Sex assigned at Not on file [facility] Start: 11-03-2019 End: 12-03-2019 Exposure to SARS-CoV-2 (event) Unable to assess [facility] Functional Status Date Assessment Result Facility 12-04-2023 Functional Status N/A [facility] 11-28-2022 Functional Status N/A [facility] 10-03-2022 Functional Status N/A [facility] 07-12-2022 Functional Status N/A [facility] 06-25-2022 Functional Status N/A [facility] [place] 05-09-2022 Functional Status N/A [facility] 12-13-2021 Functional Status N/A [facility] 11-01-2021 Functional Status N/A [facility] 09-20-2021 Functional Status N/A [facility] Clinical Notes 12-21-2014 to 12-04-2023 Note Date [...] Follow these instructions at home: Medicines Take vzue-aai-hhwlrqm and prescription medicines only as told by [...] to keep your pee pale yellow. ?Take vuhp-ywq-tqpugmh or prescription medicines. ?Eat foods that are [...] provider. Document Revised: 11/16/2022 Document Reviewed: 11/16/2022 [employer] Patient Education 2023 [employer]. 12/04/2023 10:39:50 Laser Therapy for Kidney Stones [...] including vitamins, herbs, eye drops, creams, and gebe-nuv-xjbgqkx medicines. Any problems you or family members [...] unless your provider tells you to. ?Taking mtrg-shs-gsnxbwu medicines, vitamins, herbs, and supplements. Tests You [...] provider. Document Revised: 11/16/2022 Document Reviewed: 11/16/2022 [employer] Patient Education 2023 [employer]. Follow Up Care 11/28/2022 08:37:24 With:Moses GONZALEZ, RODDY YostL, URO Address: [address], [facility] [place] [address] [phone] When: Unknown Comments:neymar SR [facility] 12-04-2023 Note Patient Education Nephrology Laser Therapy [...] these instructions at home: Medicines ? Take ydiq-fik-hkwtsxr and prescription medicines only as told by [...] keep your pee pale yellow. ? Take wsrv-yuw-kkqahiw or prescription medicines. ? Eat foods that [...] provider. Document Revised: 11/16/2022 Document Reviewed: 11/16/2022 [employer] Patient Education ? 2023 [employer] Laser Therapy for Kidney Stones Laser [...] including vitamins, herbs, eye drops, creams, and xlbv-scq-odhjhvd medicines. ? Any problems you or family [...] Do not e (more content not included)... [facility] 07-10-2023 Evaluation note Authored July 10, 2023 10:50am Sooner if needed, the ER if concerns,The above note written by Ginna Sanchez LPN acting as human recorder, note dictated by Dr. Mario Hyman [facility] Work Phone: 1(381) 486-275509-21-2023 Evaluation note* Encounter Date Diagnosis Assessment Notes [...] monitor. Nov, Weight loss (ICD-10 - R63.4) [employer] Other 08-30-2023 Hospital Discharge instructions Patient Education [...] under a microscope. This is called the Miracle score and the total score can range from 6 10, indicating how likely it is that the cancer will spread (metastasize) to other parts of the body. The higher the score, the greater thelikelihood that the cancer will spread. Miracle 6 or lower: This indicates that the cancer cells look similar to normal prostate cells (well differentiated). Miracle 7: This indicates that the cancer cells look somewhat similar to normal prostate cells (moderately differentiated). Miracle 8, 9, or 10: This indicates that [...] stress of having cancer. General instructions Take eyri-rmj-bppsjux and prescription medicines only as told by your health care provider. If you have to go to the hospital, notify your cancer specialist (oncologist). Keep all follow-up visits. This is important. Where to find more information [place] [employer]: www.cancer.org [place] Society of Clinical Oncology: www.cancer.net National Cancer Drury: www.cancer.gov Contact a health care provider if: [...] provider. Document Revised: 06/14/2021 Document Reviewed: 06/14/2021 [employer] Patient Education 2022 [employer]. Follow Up Care 11/13/2022 15:19:15 With:Moses GONZALEZ, АЛЕКСАНДР Yost, URO Address: When:Within 6 Month(s) Comments:w/KUB & PSA [facility] 08-16-2023 Evaluation note* Encounter Date Diagnosis Assessment Notes Treatment Notes Treatment Clinical Notes Oct, Type 2 diabetes mellitus with hyperglycemia, without long-term current use of insulin (ICD-10 - E11.65) [employer] Other 07-05-2023 Hospital Discharge instructions Patient Education [...] treatment? Where to find more information The [place] [employer]: www.cancer.org [place] [employer]: www.auanet.org Contact a health care [...] provider. Document Revised: 09/11/2021 Document Reviewed: 09/11/2021 [employer] Patient Education 2022 [employer]. Follow Up Care 09/24/2022 08:31:37 With:Moses GONZALEZ, АЛЕКСАНДР Yost, URO Address: When: Unknown Comments:Sched biopsy and MRI [facility] 06-23-2023 Evaluation note* Encounter Date Diagnosis Assessment [...] date via shave biopsy. Patient is agreeable. [employer] Other 04-13-2023 Hospital Discharge instructions Patient Education [...] include: ?Spinach. ?Rhubarb. ?Beets. ?Potato chips and frisian fries. ?Nuts. If you regularly take a diuretic medicine, make sure to eat at least 1 2 fruits or vegetables high in potassium each day. These include: ?Avocado. ?Banana. ?Waldo, prune, carrot, or tomato juice. ?Baked potato. [...] Casseroles. Pizza. Lasagna. Frozen meals. Potato chips. Setswana fries. Summary You can reduce your risk [...] 07/13/2011 Document Revised: 07/08/2019 Document Reviewed: 02/26/2017 [employer] Patient Education 2019 [employer]. Follow Up Care 07/06/2022 11:26:43 With:Moses GONZALEZ, АЛЕКСАНДР Yost, URO Address: When: Unknown [facility] 04-03-2023 NoteEXAM: XR CHEST 2 V HISTORY: Pre-surgery evaluation COMPARISON: None. TECHNIQUE: PA and lateral views of the chest. FINDINGS: The cardiomediastinal silhouette is normal. No focal consolidation is identified. There is no pneumothorax. No pleural effusion is noted. The osseous structures are intact. IMPRESSION: No acute cardiopulmonary process. Electronically authenticated by: JESUS WOODARD Date: 2022-07-02 13:39[facility]03-27-2023 Hospital Discharge instructions Patient Education 06/25/2022 15:38:35 Kidney Stones, Ypen-ez-Qtnd Kidney Stones Kidney stones are rock-like masses [...] Follow these instructions at home: Medicines Take iuwk-pnc-snvmvfl and prescription medicines only as told by [...] 09/03/2008 Document Revised: 08/04/2019 Document Reviewed: 08/04/2019 [employer] Patient Education 2020 [employer]. Follow Up Care 05/21/2022 10:41:28 With:Moses GONZALEZ, АЛЕКСАНДР Yost, URO Address: When: Unknown [facility] 03-20-2023 Evaluation note* Encounter Date Diagnosis [...] avoid. The patient is following with the AL Betsey Cordero who provides his medication. A written prescription of Amaryl provided as he may consider using [facility] instead. May, Polyarthralgia (ICD-10 - M25.50) The patient continues to complain of multiple joint pain.Rheumatoid panel was obtained seven months ago with no indication of RA, MONISHA or Lupus, inflammatory levels were within normal range. I recommend Aleve or Ibuprofen to use sparingly [employer] Other 02-08-2023 Evaluation note* Encounter Date Diagnosis Assessment Notes Treatment Notes Treatment Clinical Notes May, Chest pain, unspecified type (ICD-10 - R07.9) [employer] Other 02-08-2023 Hospital Discharge instructions Patient Education [...] prostate. Follow these instructions at home: Take xbxp-ums-ndgdres and prescription medicines only as told by [...] 03/15/2001 Document Revised: 05/31/2018 Document Reviewed: 12/06/2016 [employer] Patient Education 2020 [employer]. Plan 1. Take Bactrim every 12 hours [...] URO Address: When: Unknown [facility] 09-14-2022 Hospital Discharge instructions Patient Education 12/13/2021 [...] Follow these instructions at home: Medicines Take erma-fkv-poqjtzh and prescription medicines only as told by [...] 03/15/2001 Document Revised: 02/28/2018 Document Reviewed: 04/03/2017 [employer] Patient Education 2020 [employer]. 12/13/2021 09:30:40 Testicular Self-Exam Testicular Self-Exam A [...] 06/24/2001 Document Revised: 07/09/2019 Document Reviewed: 02/11/2017 [employer] Patient Education 2019 [employer]. 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 I recommend the [...] ordered due to complaints of polymyalgia . [employer] Other 08-03-2022 Hospital Discharge instructions Patient Education [...] have oneof these risk factors: ?Being of -[place] descent. ?Having a family history of prostate [...] you: Are older than age 55. Are -[place]ian. Have a father, brother, or uncle who [...] 12/27/2017 Document Revised: 02/28/2018 Document Reviewed: 12/27/2017 [employer] Patient Education 2020 [employer]. Follow Up Care 09/20/2021 10:53:07 With:Moses GONZALEZ, АЛЕКСАНДР Yost, URO Address: [address], [place] [phone] When:05/04/2022 Comments:PSA [facility] 06-22-2022 Hospital Discharge instructions Patient [...] have oneof these risk factors: ?Being of -[place] descent. ?Having a family history of prostate [...] you: Are older than age 55. Are -[place]ian. Have a father, brother, or uncle who [...] 12/27/2017 Document Revised: 02/28/2018 Document Reviewed: 12/27/2017 [employer] Patient Education [employer]. Followup: 1. Obtain repeat PSA Free and [...] Comments:Discuss [facility] MDX results [facility] [address] 05-17-2022 Evaluation note* Encounter Date Diagnosis Assessment Notes Treatment Notes Treatment Clinical Notes July, History of colon polyps (ICD-10 - Z86.010) [employer] Other 09-22-2015 History general Narrative - Reported* [...] Colonoscopy 11/2014 Surgical History left knee replacement [facility] 01/2021 Surgical History right knee replacement [facility] 05/2021 Surgical History Varicose vein surgery of both l egs Surgical History left ankle/ heel surgery to str aighten the ankle up 2009 Hospitalization History see above Hospitalization History Left knee replacement [facility] 2020 Hospitalization History right knee replacement 2 022 Hospitalization History Carpal tunnel release Vi [employer] [facility] Other 09-22-2015 History general Narrative - Reported* [...] Colonoscopy 11/2014 Surgical History left knee replacement [facility] 01/2021 Surgical History right knee replacement [facility] 05/2021 Surgical History Varicose vein surgery of both l egs Surgical History left ankle/ heel surgery to str aighten the ankle up 2009 Hospitalization History see above Hospitalization History Left knee replacement [facility] 2020 Hospitalization History right knee replacement 2 022 Hospitalization History Carpal tunnel release Vi [employer] Other 09-22-2015 History general Narrative - Reported* [...] Colonoscopy 11/2014 Surgical History left knee replacement [facility] 01/2021 Surgical History right knee replacement [facility] 05/2021 Surgical History Varicose vein surgery of both l egs Surgical History left ankle/ heel surgery to str aighten the ankle up 2009 Hospitalization History see above Hospitalization History Left knee replacement [facility] 2020 Hospitalization History right knee replacement 2 022 Hospitalization History Carpal tunnel release Vi [employer] [facility] [place] Other [id number] History general Narrative - Reported* Type Description [...] Colonoscopy 11/2014 Surgical History left knee replacement [facility] 01/2021 Surgical History right knee replacement [facility] 05/2021 Surgical History Varicose vein surgery of both l egs Surgical History left ankle/ heel surgery to str aighten the ankle up 2009 Surgical History lithotripsy per Dr. Lopes right renal stone removed/stent placed 06/2022 Hospitalization History see above Hospitalization History Left knee replacement [facility] 2020 Hospitalization History right knee replacement 2 022 Hospitalization History Carpal tunnel release [facility] [place] Other Evaluation + Plan note Future Appointments Appointment Date:11/01/2021 09:15:00 AM Scheduled Provider:Melanie Lopes MD Location:[facility] Appointment Type:URO Office Visit Diagnostic Tests Pending * PSA Free & Total 09/20/21 [facility] evaluation + Plan note Future Appointments Appointment Date:05/09/2022 08:30:00 AM Scheduled Provider:Melanie Lopes MD Location:[facility] Appointment Type:URO Office Visit Diagnostic Tests Pending * PSA Free & Total 11/01/21 [facility] evaluation + Plan note Future Appointments Appointment Date:05/09/2022 08:30:00 AM Scheduled Provider:Melanie Lopes MD Location:[facility] Appointment Type:URO Office Visit Diagnostic Tests Pending * PSA Free & Total 12/13/21 [facility] evaluation + Plan note Future Appointments Appointment Date:08/15/2022 08:45:00 AM Scheduled Provider:Melanie Lopes MD Location:[facility] Appointment Type:URO Office Visit Diagnostic Tests Pending * PSA Free & Total 05/09/22 [facility] evaluation + Plan note Future Appointments Appointment Date:08/15/2022 08:45:00 AM Scheduled Provider:Melanie Lopes MD Location:[facility] Appointment Type:URO Office Visit [facility] Evaluation + Plan note Future Appointments Appointment Date:08/22/2022 09:30:00 AM Scheduled Provider:Melanie Lopes MD Location:[facility] Appointment Type:URO Office Visit [facility] Evaluation + Plan note Future Appointments Appointment Date:12/19/2022 08:00:00 AM Scheduled Provider:Melanie Lopes MD Location:[facility] Appointment Type:URO Office Visit [facility] evaluation + Plan note Future Appointments Appointment Date:06/05/2023 08:00:00 AM Scheduled Provider:Melanie Lopes MD Location:[facility] Appointment Type:URO Office Visit Diagnostic Tests Pending * PSA Free & Total 11/28/22 [facility] evaluation noteNo [facility] Other Evaluation note* Diagnosis Onset Date Resolution Status Personal history of colonic polyps acute [facility] Work Phone: Evaluation noteNo assessment information available [facility] Work Phone: Evaluation note* Author Ginna Sanchez [facility] Authored July 10, 2023 10: 50am Sooner if needed, the ER if concerns,The above note written by Ginna Sanchez LPN acting as human recorder, note dictated by Dr. Mario Hyman [facility] Work Phone: Evaluation note* Diagnosis Primary osteoarthritis of both knees Primary localized osteoarthrosis, lower leg [facility] Author Steph Reagan [facility] Authored January 21, 2024 2 :20pm The above note written by Ramirez Reagan LPN, acting as human recorder, note dictated by Dr. Mario Hyman. [facility] Work Phone: Hospital course Narrative No data available for this section [facility] Work Phone: Progress note No data available for this section [facility] reason for visit Narrative3 month Follow up-a1c & [facility] Other Reason for Referral Referred by: Moses GONZALEZ, Melanie Lane Reason consult and treat; c hronic right maxillary sinusitis Diagnosis 1 Right maxillary sinu sitis (J32.0) Referral Organization [facility] [place] Referring Provider First Name Mario Referring Provider Last Name Yenni Referring Provider Specialty Family Prac dioni Referred Provider Cecilio Uriostegui Referred Provider Specialty Otolaryngolo gy Referral Priority Routine Reason consult and treat PFT and chest x-ray have been ordered Diagnosis 1 Asbestosis (J61) Referral Organization [facility] [place] Referring Provider First Name Mario Referring Provider Last Name Kunnorah Referring Provider Specialty Family Prac dioni Referred Organization [facility] Referred Provider Shantelle Lamas Referred Address ,[place], [place],[address] Referred Provider Specialty Pulmonary Di seases Referral [...] section and content) DATE CREATED AUTHOR 08/02/2022 [facility] DATE CREATED AUTHOR AUTHOR'S ORGANIZ ATION 08/11/2022 [facility] DATE CREATED AUTHOR AUTHOR'S ORGANIZ ATION 07/12/2023 [facility] DATE CREATED AUTHOR AUTHOR'S ORGANIZ ATION 12/06/2023 Jim Flores [facility] Source Comments (unrecognize d section and content) In the event this informatio n is protected by the Federal Confidentiality of Alcohol and Drug Abuse Patient Records regulations: The Federal rules restrict any use of the information to criminally investigate or prosecute any alcohol or drug abuse patient.[facility] FOR RECORDS PERTAINING TO PATIENTS WHO ARE [...] BE BASED ON THE PRIMARY CLINICAL RECORDS. [employer] [facility]. provides no warranty or guarantee of the accuracy or completeness of information in this document.
[2024-02-05] MEDS: LACTATED RINGER'S SOLUTION 1,000 ML 50 ML IV (11:50)
[2024-02-05] MEDS: CEFAZOLIN SODIUM 2 GM/50 ML D5W PREMIX IV (13:25)
--- NOTE | 2024-02-05 14:15 | PM.URSON ---
Urology Surgery Operative Note Operative Note Procedure Date: 02/05/24 Time Out Performed: yes Pre-op Diagnosis: Left kidney stones Post-op Diagnosis: same as pre-op Procedures performed: Left extracorporeal shockwave lithotripsy Anesthesia: General-LMA (Dr. Spears ) Primary Surgeon: Melanie Lopes Complications: none Estimated blood loss (mL): 0 Findings: 2 radiopaque stone in right kidney underwent uncomplicated shockwave lithotripsy, fragmented well Specimens: none Indications for Procedures: The patient was evaluated in clinic and deemed a candidate for left extracorporeal shock wave lithotripsy for 9 mm and 5 mm left kidney stones. Risks were discussed to include but not limited to bleeding, pain, infection, damage to surrounding structures, inability to treat the stone, residual fragments, obstruction and need for additional procedures. Detailed description of Procedure: After informed consent was obtained, the patient was brought to the operating room and placed on the lithotripsy bed in supine position. Sequential compression devices were placed on bilateral lower extremities. The patient received the appropriate dose of preoperative IV antibiotics and general anesthesia LMA was induced. An operative time out was performed confirming the patient's identity, procedure, laterality and safety checks. The patient was positioned with the Siemens [employer] Lithostar lithotripter head on the left flank. The stones were triangulated using fluoroscopy. A total of 3000 shocks were provided and the stones were seen to fragment well. Shadowing was still visualized. The procedure was concluded and patient was awakened from anesthesia in stable condition. The patient tolerated the procedure well without complications. Plan: Discharge home with strainer and tamsulosin. Follow up in 4 weeks with [facility].
== END 2024-02-05 15:20 | disposition home or self-care (01) ==
PROVIDERS: PCP Family Medicine; Visit Provider Urology
PROC: (CPT 50590; principal; 2024-02-05 12:30)
DX: N20.0 Calculus of kidney (principal); C61 Malignant neoplasm of prostate; R97.20 Elevated prostate specific antigen [PSA]; Z79.84 Long term (current) use of oral hypoglycemic drugs; G47.33 Obstructive sleep apnea (adult) (pediatric); I10 Essential (primary) hypertension; R73.03 Prediabetes
CPT/HCPCS: 50590; 74018; J0690; J1100; J1885; J2405; J2704; J3010